=== PATIENT | male | born 1970 | race Two or more races ===

== ENCOUNTER 2019-02-22 09:53 | Emergency (ER) | payer SELFPAY ==
[~2019-02-22] VITALS: Ht 188 cm; Wt 82.1 kg
--- NOTE | 2019-02-22 09:53 | NUR ---
BIB RA 39 AND [employer] OFFICERS FROM CUSTODIAL, ETOH AND ELEVATED BLOOD SUGAR, TO ER BED 14, HOOKED TO MONITOR, CHANGED TO GOWN, PROVIDED W WARM BLANKET, AWAITING MD MORENO
--- NOTE | 2019-02-22 09:55 | NUR ---
DR KENDRICK AT BEDSIDE
--- NOTE | 2019-02-22 11:04 | NUR ---
CHELITA KAT AT BEDSIDE, SIGNED HOMELESS WAIVER FORM
--- NOTE | 2019-02-22 11:10 | NUR ---
PROVIDED PT W SANDWICH AND WATER.
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
--- NOTE | 2019-02-22 11:23 | NUR ---
Patient given written and verbal discharge instructions. Patient verbalizes understanding of instructions. Patient is ambulatory with steady gait. Refuses offer of senior living placement. Patient given list of available shelters in surrounding area. Pt on proper clothing upon discharge. Provided w tapcard.
[2019-02-22 11:24] VITALS: BP 149/81
== END 2019-02-22 11:26 | disposition home or self-care (01) ==
LOC: ER 09:58
DX: E11.9 Type 2 diabetes mellitus without complications (principal); F10.129 Alcohol abuse with intoxication, unspecified; F17.200 Nicotine dependence, unspecified, uncomplicated; Z60.2 Problems related to living alone; Y90.9 Presence of alcohol in blood, level not specified
CPT/HCPCS: 82962-TC

== ENCOUNTER 2020-01-28 02:12 | Emergency (ER) | payer SELFPAY ==
[~2020-01-28] VITALS: Ht 188 cm; Wt 80.7 kg
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
[2020-01-28] MEDS ORDERED: IBUPROFEN 400 MG TABLET ONE (02:34)
[2020-01-28] MEDS: IBUPROFEN 400 MG TABLET PO ONE (02:57)
[2020-01-28 04:24] VITALS: BP 127/72
--- NOTE | 2020-01-28 04:24 | NUR ---
Patient discharged to home in stable condition. Written and verbal after care instructions given. Patient verbalizes understanding of instruction. Pt ambulated with steady gait. Denies headache or pain. VSS. Ambulated with steady gait.
== END 2020-01-28 04:25 | disposition home or self-care (01) ==
LOC: ER 02:15
DX: F07.81 Postconcussional syndrome (principal); R51 Headache; Z60.2 Problems related to living alone
CPT/HCPCS: 82962-TC

== ENCOUNTER 2020-02-08 11:08 | Emergency (ER) | payer SELFPAY ==
[~2020-02-08] VITALS: Ht 177.8 cm; Wt 84.4 kg
--- NOTE | 2020-02-08 11:12 | NUR ---
PT RAJENDRA FROM [place] [facility] C/O GENERALIZED WEAKNESS, DIZZINESS X TODAY. 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 PT GOWNED PLACED ON MONITOR. STABLE VITALS. AWAITING MD MORENO.
--- NOTE | 2020-02-08 11:25 | NUR ---
IV LINE STARTED BLOOD DRAWN AND SENT TO LAB.
--- NOTE | 2020-02-08 11:49 | NUR ---
DR MINOR AT BEDSIDE FOR EVAL.
[2020-02-08] MEDS ORDERED: ASPIRIN 325 MG TABLET ONE (11:52)
[2020-02-08] MEDS ORDERED: ASPIRIN 325 MG TABLET PO ONE (12:00)
[2020-02-08] MEDS ORDERED: IV NS 0.9% 1,000 ML BAG IV ONE (12:00)
--- NOTE | 2020-02-08 12:02 | NUR ---
RADIOLOGY AT BEDSIDE FOR CHEST XRAY.
[2020-02-08 12:05] LABS: APPEARANCE,URINE Clear (CLEAR); BILIRUBIN,URINE Negative (NEGATIVE); BLOOD, URINE Small Ery/uL (NEGATIVE); COLOR,URINE Yellow (YELLOW); KETONES,URINE Negative (NEGATIVE); LEUKOCYTE ESTERASE ,URINE Small (NEGATIVE); NITRITE, URINE Negative (NEGATIVE); PH,URINE 6.5 (5.0-8.0); PROTEIN,URINE 30 mg/dl (NEGATIVE); UGLUCOSE 500 MG/DL mg/dL (NEGATIVE)
[2020-02-08 12:18] LABS: BACTERIA,URINE Few /HPF (None Seen); SQUAMOUS EPITHELIAL CELL,UR Rare /HPF (None Seen)
[2020-02-08 12:22] LABS: CALCIUM, SERUM 8.5 mg/dL (8.5-10.1); CARBON DIOXIDE 26 mmol/L (21-32); CHLORIDE 99 mmol/L (98-107); CREATININE 0.9 mg/dL (0.6-1.3); GLUCOSE 327 mg/dL (74-106); POTASSIUM 4.1 mmol/L (3.5-5.1); SODIUM SERUM 134 mmol/L (136-145); UREA NITROGEN, BLOOD 7 mg/dL (7-18)
[2020-02-08 12:28] LABS: ALANINE AMINOTRANSFERASE 41 U/L (12-78); ALBUMIN 3.3 g/dL (3.4-5.0); ALKALINE PHOSPHATASE 237 U/L (46-116); ASPARTATE AMINOTRANSFERASE 165 U/L (15-37); BILIRUBIN,DIRECT 0.4 mg/dL (0.0-0.2); BILIRUBIN,TOTAL 0.8 mg/dL (0.2-1.0); LIPASE 440 U/L (73-393); TOTAL PROTEIN, SERUM 8.2 g/dL (6.4-8.2)
[2020-02-08 12:33] LABS: BASOPHILS % (AUTO) 1.1 % (0.0-2.0); EOSINOPHILS % (AUTO) 0.7 % (0.0-6.0); HEMATOCRIT 31 % (39-51); HEMOGLOBIN 10.9 g/dL (13.5-17.5); LYMPHOCYTES # (AUTO) 0.8 /CMM (0.8-4.8); LYMPHOCYTES % (AUTO) 25.2 % (20.0-44.0); MEAN CORPUSCULAR HGB CONC 35 g/dl (31.0-36.0); MEAN CORPUSCULAR VOLUME 104 fL (80-96); MONOCYTES # (AUTO) 0.4 /CMM (0.1-1.30); MONOCYTES % (AUTO) 11.8 % (2.0-12.0); NEUTROPHILS # (AUTO) 1.9 /CMM (1.8-8.9); NEUTROPHILS % (AUTO) 61.2 % (43.0-81.0); PLATELET COUNT (AUTO) 53 /CMM (150-450); WHITE BLOOD COUNT (AUTO) 3.2 K/uL (4.3-11.0)
[2020-02-08 12:56] LABS: MAGNESIUM 1.9 mg/dL (1.8-2.4); PHOSPHORUS 4.1 mg/dL (2.5-4.9)
[2020-02-08 13:21] LABS: BAND % (MANUAL) 3 % (0.0-5.0); BASOPHILS % (MANUAL) 1 % (0.0-2.0); EOSINOPHILS % (MANUAL) 1 % (0-4); LYMPHOCYTES % (MANUAL) 25 % (16-48); MONOCYTES % (MANUAL) 11 % (0-11.0); NEUTROPHILS % (MANUAL) 59 (42-76)
[2020-02-08] MEDS ORDERED: IV NS 0.9% 1,000 ML IV ONE (13:30)
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
--- NOTE | 2020-02-08 15:51 | NUR ---
SEEN BY CHELITA PATEL. WAS PROVIDED W/ HOMELESS REFFERALS. PT IS AMBULATORY W/ STEADY GAIT. WAS PROVIDED W/ MEAL TRAIY AND BUS PASS FOR TRANSPORTATION. HOMELESS WAIVER SIGNED. D/C'D IN STABLE CONDITION.
[2020-02-08 16:01] VITALS: BP 136/84
--- NOTE | 2020-02-08 16:01 | NUR ---
Patient discharged to home in stable condition. Written and verbal after care instructions given. Patient verbalizes understanding of instruction.IV removed. Catheter intact and site benign. Pressure and 4x4 applied to site. No bleeding noted.
== END 2020-02-08 16:06 | disposition home or self-care (01) ==
LOC: ER 11:09
DX: F10.10 Alcohol abuse, uncomplicated (principal); R74.0 Nonspecific elevation of levels of transaminase and lactic acid dehydrogenase [LDH]; R11.10 Vomiting, unspecified; E11.9 Type 2 diabetes mellitus without complications; I10 Essential (primary) hypertension; F17.200 Nicotine dependence, unspecified, uncomplicated; Z60.2 Problems related to living alone; Z59.0 Homelessness; Y90.9 Presence of alcohol in blood, level not specified
CPT/HCPCS: 36415; 71045; 80048; 80076; 81001; 82962; 83605 ×2; 83690; 83735; 84100; 84484; 85025; 93005; 96360; 96361; 99285; J7030 ×2; 81000-TC

== ENCOUNTER 2020-12-03 20:15 | Inpatient (IN) | payer MEDICAID ==
[~2020-12-03] VITALS: Ht 165.1 cm; Wt 82.6 kg
--- NOTE | 2020-12-03 20:25 | NUR ---
to er bed 14 bibra 39 from [facility], [place] called 911 for etoh. field bs 148. pt aaox2, no acute distress noted, resp even and unlabored. pt denies pain or discomfort at this time. place pt on cardiac monitoring. continuous pox. pending er md irvin.
[2020-12-03 20:46] LABS: BASOPHILS % (AUTO) 0.5 % (0.0-2.0); EOSINOPHILS % (AUTO) 1.1 % (0.0-6.0); HEMATOCRIT 26 % (39-51); HEMOGLOBIN 8.9 g/dL (13.5-17.5); LYMPHOCYTES # (AUTO) 2.1 /CMM (0.8-4.8); LYMPHOCYTES % (AUTO) 34.6 % (20.0-44.0); MEAN CORPUSCULAR HGB CONC 35 g/dl (31.0-36.0); MEAN CORPUSCULAR VOLUME 94 fL (80-96); MONOCYTES # (AUTO) 0.6 /CMM (0.1-1.30); MONOCYTES % (AUTO) 10.6 % (2.0-12.0); NEUTROPHILS # (AUTO) 3.3 /CMM (1.8-8.9); NEUTROPHILS % (AUTO) 53.2 % (43.0-81.0); PLATELET COUNT (AUTO) 140 /CMM (150-450); RED BLOOD CELL COUNT(AUTO) 2.72 MIL/uL (4.5-6.0); WHITE BLOOD COUNT (AUTO) 6.1 K/uL (4.3-11.0)
[2020-12-03 21:05] LABS: ALBUMIN 2.4 g/dL (3.4-5.0); BILIRUBIN,DIRECT 0.3 mg/dL (0.0-0.2); BILIRUBIN,TOTAL 0.5 mg/dL (0.2-1.0); CREATININE 2.9 mg/dL (0.6-1.3); POTASSIUM 3.3 mmol/L (3.5-5.1); TOTAL PROTEIN, SERUM 8.4 g/dL (6.4-8.2)
[2020-12-03] MEDS ORDERED: IV NS 0.9% 1,000 ML IV ONE (21:30)
--- NOTE | 2020-12-03 21:38 | NUR ---
MARYID SWABBED, SENT TO LAB.
--- NOTE | 2020-12-03 21:43 | NUR ---
DR. LEWIS PAGED PER MD ORDER.
--- NOTE | 2020-12-03 22:00 | NUR ---
GERARDO DAVID TALKING TO DR. LEWIS REGARDING PT ADMISSION.
--- NOTE | 2020-12-03 22:09 | NUR ---
TELE 326-2
--- NOTE | 2020-12-03 22:27 | NUR ---
report frank to telehealth case managerjovanna abreu. will trnasport pt via acls protocol.
[2020-12-03 22:30] VITALS: BP 136/81
--- NOTE | 2020-12-03 22:30 | NUR ---
SPECIALIZED DEVELOPERCARDIAC REHABILITATION SPECIALIST NOTE PATIENT A/OX2; NOTED WITH SLURRED SPEECH, AND LACK OF CONCENTRATION; ABLE TO MAKE NEEDS KNOWN. ON ROOM AIR; TOLERATING WELL WITH NO SOB. IV TO LAC #18G; NS @ 100ML/HR; PATENT AND INTACT. SCAB NOTED TO BILATERAL KNEES. +2 NON-PITTING EDEMA NOTED TO LEFT ANKLE. MAINTAINED AND EDUCATED PATIENT ON NPO DIET. PATIENT DENIES PAIN OR DISCOMFORT AT THIS TIME. ORIENTED PATIENT TO UNIT, STAFF, AND ROOM. ALL BELONGINGS ACCOUNTED FOR ON PATIENT BELONGINGS CHECKLIST. SAFETY MEASURES IN PLACE: BED IN LOWEST LOCKED POSITION, BED ALARMS ON, SIDE RAILS UPX2, CALL LIGHT WITHIN EASY REACH. PATIENT IN STABLE CONDITION; WILL CONTINUE PLAN OF CARE.
[2020-12-03 22:35] LABS: BILIRUBIN,URINE NEGATIVE (NEGATIVE); COLOR,URINE YELLOW (YELLOW); LEUKOCYTE ESTERASE ,URINE NEGATIVE (NEGATIVE); NITRITE, URINE NEGATIVE (NEGATIVE); PROTEIN,URINE TRACE mg/dl (NEGATIVE); UGLUCOSE NEGATIVE (NEGATIVE); UROBILINOGEN,URINE 0.2 EU/dL (0.2)
--- NOTE | 2020-12-03 22:46 | NUR ---
PT TRANSFERED PER ACLS PROTOCOL
[2020-12-03 22:50] VITALS: BP 136/81
[2020-12-03 22:58] LABS: BACTERIA,URINE None seen /HPF (None Seen); SQUAMOUS EPITHELIAL CELL,UR Few /HPF (None Seen); URINE AMORPHOUS URATE Few /HPF (None Seen); WBC,URINE 0-2 /HPF (0-3)
[2020-12-03] MEDS ORDERED: Z GUARD REMEDY 2 OZ OINT TP PRN (23:30)
[2020-12-03] MEDS ORDERED: ZOLPIDEM TARTRATE 5 MG TABLET PO PRN (23:30)
[2020-12-03] MEDS ORDERED: ONDANSETRON HCL/PF 4 MG/2 ML VIAL IVP PRN (23:30)
[2020-12-03] MEDS ORDERED: PHARMACY ADD 1 AMP MVI TO IVF DAILY ONE BAG XX PRN (23:30)
[2020-12-03] MEDS ORDERED: ACETAMINOPHEN 325 MG TABLET PO PRN (23:30)
[2020-12-03] MEDS ORDERED: MAG HYDROX/AL HYDROX/SIMETH 30 ML UDC PO PRN (23:30)
[2020-12-03] MEDS ORDERED: MAGNESIUM HYDROXIDE 30 ML UDC PO PRN (23:30)
[2020-12-03] MEDS ORDERED: Folic acid 1 MG in IV D5W 50 ML IV SCH (23:30)
[2020-12-03] MEDS: IV NS 0.9% 1,000 ML IV SCH (23:57)
--- NOTE | 2020-12-04 00:30 | NUR ---
CHARGING CRANE OPERATOR NOTES - FOLIC ACID PATIENT'S FOLIC ACID 1MG WAS NOT ADMINISTERED AT 2330. PER RN NEUROLOGY PHYSICIAN MEDICATION WAS NOT AVAILABLE. WILL ENDORSE TO NEXT SHIFT RN AND PHARMACY FOR MEDICATION TO BE ADMINISTER IN AM. CHARGE NURSE AWARE.
[2020-12-04] MEDS ORDERED: Thiamine 100 MG/ML VIAL ONE (00:40)
[2020-12-04] MEDS: POTASSIUM CL. PREMIX PERIPHER. 50 ML IV SCH ×3 (00:44→02:58)
[2020-12-04] MEDS: Thiamine 100 MG in IV D5W 50 ML IV SCH ×2 (01:10→23:30)
[2020-12-04 04:29] VITALS: BP 134/81
--- NOTE | 2020-12-04 06:07 | NUR ---
CRIMINAL JUSTICE PROGRAM DIRECTOR CLOSING NOTE PATIENT A/OX2; NOTED LACK OF CONCENTRATION; ABLE TO MAKE NEEDS KNOWN. ON ROOM AIR; TOLERATING WELL WITH NO SOB. EXTERNAL ONLINE JOURNALIST READS SINUS TACHY AT 104. IV TO LAC #18G; PATENT AND INTACT. RIGHT HAND #20G; NS @ 100ML/HR; PATENT AND INTACT. SCAB NOTED TO BILATERAL KNEES. +2 NON-PITTING EDEMA NOTED TO LEFT ANKLE. MAINTAINED AND EDUCATED PATIENT ON NPO DIET. PATIENT DENIES PAIN OR DISCOMFORT AT THIS TIME. SAFETY MEASURES IN PLACE: BED IN LOWEST LOCKED POSITION, BED ALARMS ON, SIDE RAILS UPX2, CALL LIGHT WITHIN EASY REACH. PATIENT IN STABLE CONDITION; WILL ENDORSE PLAN OF CARE TO ONCOMING MORNING RN.
[2020-12-04 06:37] LABS: BASOPHILS % (AUTO) 0.8 % (0.0-2.0); EOSINOPHILS % (AUTO) 3.1 % (0.0-6.0); HEMATOCRIT 24 % (39-51); HEMOGLOBIN 8.1 g/dL (13.5-17.5); LYMPHOCYTES # (AUTO) 1.1 /CMM (0.8-4.8); LYMPHOCYTES % (AUTO) 28.3 % (20.0-44.0); MEAN CORPUSCULAR HGB CONC 34 g/dl (31.0-36.0); MEAN CORPUSCULAR VOLUME 95 fL (80-96); MONOCYTES # (AUTO) 0.7 /CMM (0.1-1.30); MONOCYTES % (AUTO) 16.6 % (2.0-12.0); NEUTROPHILS # (AUTO) 2.1 /CMM (1.8-8.9); NEUTROPHILS % (AUTO) 51.2 % (43.0-81.0); PLATELET COUNT (AUTO) 129 /CMM (150-450); RED BLOOD CELL COUNT(AUTO) 2.48 MIL/uL (4.5-6.0)
[2020-12-04 07:07] LABS: CALCIUM, SERUM 7.4 mg/dL (8.5-10.1); CREATININE 2.7 mg/dL (0.6-1.3); MAGNESIUM 1.7 mg/dL (1.8-2.4); PHOSPHORUS 3.6 mg/dL (2.5-4.9); POTASSIUM 4.1 mmol/L (3.5-5.1)
[2020-12-04 08:00] VITALS: BP 141/72
[2020-12-04] MEDS ORDERED: INSU100V7 SQ (08:00)
[2020-12-04] MEDS ORDERED: METF-440 PO (08:00)
--- NOTE | 2020-12-04 08:00 | NUR ---
RN OPENING NOTE PATIENT IS AWAKE IN BED. PATIENT IS A/O X3 AND UNDERSTANDS SOME ETHIOPIAN. NO COMPLAINT OF PAIN OF NAUSEA. CURRENTLY ON RA WITH NO SOB OR RESPIRATORY DISTRESS PRESENT. CURRENTLY ON NOXIOUS WEEDS AND PEST INSPECTOR. ON BEDREST WITH URINAL AT THE BEDSIDE. EDEMA PRESENT ON L ANKLE. SKIN IS INTACT. HL PRESENT ON L AC 18G AND R HAND 20G. SAFETY MEASURES IN PLACE. SIDE RAILS RAISED. BED LOWERED. CALL LIGHT WITHIN REACH. WILL CONTINUE TO MONITOR.
[2020-12-04] MEDS ORDERED: MVI ADULT 10ML VIAL = 1AMP 10 ML in IV NS 0.9% 1,000 ML IV ONE (09:00)
[2020-12-04] MEDS ORDERED: Folic acid 1 MG in IV D5W 50 ML IV SCH (09:00)
[2020-12-04 09:20] LABS: EOSINOPHILS % (MANUAL) 3 % (0-4); LYMPHOCYTES % (MANUAL) 29 % (16-48); MONOCYTES % (MANUAL) 15 % (0-11.0); NEUTROPHILS % (MANUAL) 53 (42-76)
[2020-12-04] MEDS ORDERED: LISI20TA30 PO (09:23)
[2020-12-04] MEDS ORDERED: ERGO500014 PO (09:23)
[2020-12-04] MEDS: IV NS 0.9% 1,000 ML IV SCH (09:56)
[2020-12-04 12:00] VITALS: BP 148/84
[2020-12-04 16:06] VITALS: BP 149/84
--- NOTE | 2020-12-04 16:06 | NUR ---
Social Service Consult: client services analyst consult requested for homelessness. Patient is a 50-year-old, male. SW met with the patient at bedside in the medsur unit. Patient is alert and oriented x4. Per patients chart, patient was brought into the hospital on 12/03/20 for an acute kidney injury. Patient stated he is currently homeless and has been homeless for the last four years. Patient currently has no source of income. Patient has been staying with his ex-girlfriends for a month. Patient was unable to provide SW with an address but stated her name is Vidya and provided SW with her contact information [phone]. Patient stated that he was sober for 50 days but has recently started drinking alcohol. Per patients toxicology report, patient is positive for ETOH and Benzodiazepine. Patient denies any history of mental illness however patient stated that he has had visual and auditory hallucinations. Patient stated he would see and hear parrots. Patient denies any thoughts of suicide or homicide. 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 Patient is aware that he will be placed in appropriate placement for his care after the amputation. Patient agrees with this discharge plan. SW offered homeless resources to the patient and asked if he is familiar with the resources. Patient stated that he is familiar with the resources and accepted the resources. Patient signed the homeless waiver and SW filed the waiver in the patients chart. 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 HELENA Schneider stated case management will follow up with appropriate placement for discharge planning. No further SS intervention at this time, however SW will remain available as needed.
[2020-12-04] MEDS: HYDROCODONE/APAP 5/325MG TABLET PO PRN (16:07)
--- NOTE | 2020-12-04 19:01 | NUR ---
RN CLOSING NOTE PATIENT IS AWAKE IN BED. PATIENT IS A/O X3 AND UNDERSTANDS SOME CITIZEN OF [place]. NO COMPLAINT OF PAIN OF NAUSEA. CURRENTLY ON RA WITH NO SOB OR RESPIRATORY DISTRESS PRESENT. CURRENTLY ON LAMINATOR HAND. ON BEDREST WITH URINAL AT THE BEDSIDE. EDEMA PRESENT ON L ANKLE. SKIN IS INTACT. HL PRESENT ON L AC 18G AND R HAND 20G. ROUTINE MEDS GIVEN. SAFETY MEASURES IN PLACE. SIDE RAILS RAISED. BED LOWERED. CALL LIGHT WITHIN REACH. REPORT GIVEN TO NIGHT NURSE FOR KAT.
[2020-12-04 20:00] VITALS: BP 134/75
--- NOTE | 2020-12-04 20:20 | NUR ---
LIEUTENANT BALLISTICS: OPENING NOTES PATIENT IS SEEN AWAKE IN BED. PATIENT IS A/O X3. PT IS CURRENTLY ON RA AND BREATHING IS EVEN AND UNLABORED. PT IS ON A TOOTH CUTTER. PT HAS EDEMA PRESENT ON L ANKLE AND FOOT. PT HAS IV ACCESSES ON HIS LAC #18G AND R HAND #20G. SAFETY MEASURES IN PLACE. SIDE RAILS RAISED. CALL LIGHT WITHIN REACH. PER PT, HE DOES NOT WANT HIS BED ALARM ON AND STATED THAT HE CAN AMBULATE INDEPENDENTLY WITH CRUTCHES. WILL CONTINUE TO MONITOR THE PT.
--- NOTE | 2020-12-04 21:33 | NUR ---
MS/TELE/RN IV MACHINE KEEPS BEEPING AT IV ACCESS AT LEFT AC PATIENT ALWAYS BENDS HIS ARM, AD IV AT RT. HAND NOT FLUSHING. REMOVED IV AT RT. HAND AND INSERTED A NEW IV AT RT. F/A G20. WILL CONTINUE TO MONITOR.
[2020-12-04] MEDS: IV NS 0.9% 1,000 ML IV PRN (23:37)
[2020-12-05] VITALS: BP 123/70
[2020-12-05 04:00] VITALS: BP 143/86
--- NOTE | 2020-12-05 06:32 | NUR ---
CHILD CARE COUNSELOR: CLOSING NOTES PATIENT IS SEEN AWAKE IN BED. PATIENT IS A/O X3. PT IS CURRENTLY ON RA AND BREATHING IS EVEN AND UNLABORED. PT IS ON A MACHINIST OUTSIDE. PT HAS AN IV ACCESSES ON HIS LAC #18G AND RIGHT FOREARM #20G . SAFETY MEASURES IN PLACE. 2 SIDE RAILS RAISED UP. CALL LIGHT IS WITHIN REACH. WILL ENDORSE CONTINUITY OF CARE TO DAY SHIFT NURSE.
[2020-12-05 07:06] LABS: BASOPHILS % (AUTO) 0.5 % (0.0-2.0); EOSINOPHILS % (AUTO) 2.3 % (0.0-6.0); HEMATOCRIT 23 % (39-51); LYMPHOCYTES # (AUTO) 1.2 /CMM (0.8-4.8); LYMPHOCYTES % (AUTO) 27.6 % (20.0-44.0); MEAN CORPUSCULAR HGB CONC 35 g/dl (31.0-36.0); MEAN CORPUSCULAR VOLUME 94 fL (80-96); MONOCYTES # (AUTO) 0.9 /CMM (0.1-1.30); MONOCYTES % (AUTO) 21.1 % (2.0-12.0); NEUTROPHILS # (AUTO) 2.1 /CMM (1.8-8.9); NEUTROPHILS % (AUTO) 48.5 % (43.0-81.0); PLATELET COUNT (AUTO) 109 /CMM (150-450); RED BLOOD CELL COUNT(AUTO) 2.44 MIL/uL (4.5-6.0); WHITE BLOOD COUNT (AUTO) 4.3 K/uL (4.3-11.0)
--- NOTE | 2020-12-05 07:45 | NUR ---
RN OPENING NOTES PATIENT IS ALERT AND ORIENTED. PATIENT IS ON ROOM AIR WITH 02 SATURATION OF 98%. BREATHING EVEN AND UNLABORED. IV ACCESS TO RIGHT FOREARM 20 GAUZE WITH FLUIDS RUNNING. BED IS IN LOWEST AND LOCKED POSITION. CALL LIGHT WITHIN REACH.
[2020-12-05 08:00] VITALS: BP 149/84
[2020-12-05 08:15] LABS: ALBUMIN 2.1 g/dL (3.4-5.0); BILIRUBIN,TOTAL 0.6 mg/dL (0.2-1.0); CREATININE 2.6 mg/dL (0.6-1.3); MAGNESIUM 1.4 mg/dL (1.8-2.4); PHOSPHORUS 3.6 mg/dL (2.5-4.9); TOTAL PROTEIN, SERUM 7.7 g/dL (6.4-8.2)
[2020-12-05] MEDS: THIAMINE HCL 100 MG TABLET PO SCH (08:26)
[2020-12-05] MEDS: FOLIC ACID 1 MG TABLET PO SCH (08:26)
[2020-12-05] MEDS: MULTIVITAMINS,THERAGRAN 1 UDTAB TABLET PO SCH (08:30)
[2020-12-05 08:52] LABS: LYMPHOCYTES % (MANUAL) 25 % (16-48); MONOCYTES % (MANUAL) 12 % (0-11.0); NEUTROPHILS % (MANUAL) 63 (42-76)
[2020-12-05] MEDS: Magnesium 1GM/D5W 100ML PREMIX 100 ML IV SCH ×2 (09:30→11:01)
[2020-12-05] MEDS: HYDROCODONE/APAP 5/325MG TABLET PO PRN ×2 (11:11→23:15)
[2020-12-05] MEDS ORDERED: DEXTROSE 50%-WATER 50 ML DISP.SYRIN IV PRN (14:00)
[2020-12-05 15:54] VITALS: BP 123/74
[2020-12-05] MEDS ORDERED: BLOOD SUGAR DIAGNOSTIC 1 EACH STRIP IN SCH (17:30)
[2020-12-05] MEDS: BLOOD SUGAR DIAGNOSTIC 1 EACH STRIP IN SCH ×2 (17:39→21:16)
[2020-12-05 19:00] VITALS: BP 149/88
--- NOTE | 2020-12-05 19:10 | NUR ---
RN NOTE RECEIVED PT ALERT AND ORIENTED X 3 IN BED WITH HEAD OF BED ELEVATED. ON ROOM AIR. RESPIRATIONS UNLABORED. NO COMPLAINTS OF PAIN AT THIS TIME. WITH NS @ 100ML/HOUR RUNNING ORDERED WITHOUT SIGNS OF COMPLICATIONS AT SITE. PLAN OF CARE DISCUSSED, CALL LIGHT WITHIN REACH, SAFETY MEASURES IN PLACE PER PROTOCOL, WILL MONITOR
--- NOTE | 2020-12-05 19:29 | NUR ---
RN CLOSING NOTES PATIENT IS ALERT AND ORIENTED. PATIENT IS ON ROOM AIR BREATHING EVEN AND UNLABORED. IV ACCESS TO RIGHT FOREARM 20 GAUZE WITH FLUIDS RUNNING. BED IS IN LOWEST AND LOCKED POSITION. CALL LIGHT WITHIN REACH. ENDORSED TO NEXT SHIFT REGARDING PATIENT'S NPO STATUS AFTER MIDNIGHT AND PROCEDURE CONSENTS BEING SIGNED FOR I AND D IN AM.
[2020-12-05 20:00] VITALS: BP 149/88
[2020-12-05] MEDS: IV NS 0.9% 1,000 ML IV PRN (20:29)
--- NOTE | 2020-12-05 21:00 | NUR ---
RN NOTE PER DINING HOST GIL, PT TO HAVE SURGERY TOMORROW AT 1200. CONSENTS SIGNED AND LOCATED IN CHART. PT MADE AWARE.
--- NOTE | 2020-12-06 00:50 | NUR ---
MS RN NOTES RECEIVED PT AWAKE & RESPONSIVE. NOT IN ANY DISTRESS. NO SOB NOTED. DENIES ANY PAIN OR DISCOMFORT AT THIS TIME. WITH IVF INFUSING WELL. CALL LIGHT WITHIN REACH. BED IN LOWEST POSITION. SR UP X 3 WITH BED ALARM ON FOR SAFETY. WILL CONTINUE TO MONITOR. Addendum: 12/07/20 at 0543 by BUNNY ABDUL RN DISREGARD NOTES, INCORRECT TIME & DATE.
[2020-12-06] MEDS: IV NS 0.9% 1,000 ML IV PRN (03:58)
[2020-12-06 05:07] LABS: PTH, INTACT 40 pg/mL (15-65)
[2020-12-06] MEDS: BLOOD SUGAR DIAGNOSTIC 1 EACH STRIP IN SCH ×4 (06:54→22:24)
--- NOTE | 2020-12-06 07:00 | NUR ---
RN NOTE NO ACUTE CHANGES OBSERVED. PT ALERT AND ORIENTED X 3 IN BED WITH HEAD OF BED ELEVATED. ON ROOM AIR. RESPIRATIONS UNLABORED. NO COMPLAINTS OF PAIN AT THIS TIME. WITH NS @ 100ML/HOUR RUNNING ORDERED WITHOUT SIGNS OF COMPLICATIONS AT SITE. PT IS PENDING SURGERY TODAY. CONSENTS SIGNED IN CHART, NPO STATUS MAINTAINED. WILL ENDORSE TO MORNING RN.
[2020-12-06 07:01] LABS: BASOPHILS % (AUTO) 1.1 % (0.0-2.0); EOSINOPHILS % (AUTO) 2.4 % (0.0-6.0); HEMATOCRIT 23 % (39-51); LYMPHOCYTES # (AUTO) 1.3 /CMM (0.8-4.8); LYMPHOCYTES % (AUTO) 36.3 % (20.0-44.0); MEAN CORPUSCULAR HGB CONC 34 g/dl (31.0-36.0); MEAN CORPUSCULAR VOLUME 95 fL (80-96); MONOCYTES # (AUTO) 0.7 /CMM (0.1-1.30); MONOCYTES % (AUTO) 19.8 % (2.0-12.0); NEUTROPHILS # (AUTO) 1.4 /CMM (1.8-8.9); NEUTROPHILS % (AUTO) 40.4 % (43.0-81.0); PLATELET COUNT (AUTO) 121 /CMM (150-450); RED BLOOD CELL COUNT(AUTO) 2.44 MIL/uL (4.5-6.0); WHITE BLOOD COUNT (AUTO) 3.5 K/uL (4.3-11.0)
--- NOTE | 2020-12-06 07:30 | NUR ---
MS RN OPENING NOTES RECEIVED PATIENT LYING IN BED, RESTING. PATIENT ON ROOM AIR - TOLERATING WELL, WITH O2 SATURATION OF 98%. BREATHING EVEN AND UNLABORED. NO PAIN OR RESPIRATORY DISTRESS NOTED. IV ACCESS TO RIGHT FOREARM, #20 - RUNNING NS @ 100ML/HR. BED IS IN LOWEST AND LOCKED POSITION. CALL LIGHT WITHIN REACH. WILL CONTINUE TO MONITOR.
[2020-12-06 08:00] VITALS: BP 143/84
[2020-12-06] MEDS: FOLIC ACID 1 MG TABLET PO SCH (08:35)
[2020-12-06] MEDS: THIAMINE HCL 100 MG TABLET PO SCH (08:35)
[2020-12-06] MEDS: MULTIVITAMINS,THERAGRAN 1 UDTAB TABLET PO SCH (08:35)
[2020-12-06 10:10] LABS: CALCIUM, SERUM 8.3 mg/dL (8.5-10.1); CREATININE 2.4 mg/dL (0.6-1.3)
[2020-12-06] MEDS ORDERED: LIDOCAINE HCL/PF 1% 30 ML SDV ONE (10:41)
[2020-12-06] MEDS ORDERED: BUPIVACAINE 0.5 % PF 150 MG/30 ML VIAL ONE (10:41)
[2020-12-06 11:07] LABS: *SPE A/G RATIO 0.6 (0.7-1.7); *SPE ALBUMIN 2.4 g/dL (2.9-4.4); *SPE ALPHA-1-GLOBULIN 0.3 g/dL (0.0-0.4); *SPE ALPHA-2-GLOBULIN 0.5 g/dL (0.4-1.0); *SPE BETA GLOBULIN 0.8 g/dL (0.7-1.3); *SPE GLOBULIN, TOTAL 4.3 g/dL (2.2-3.9); *SPE M-SPIKE Not Observed g/dL (Not Observed); *SPEGAMMA GLOBULIN 2.7 g/dL (0.4-1.8)
--- NOTE | 2020-12-06 11:15 | NUR ---
MS RN NOTE PATIENT LEFT TO OR FOR SURGERY.
[2020-12-06] MEDS ORDERED: VANCOMYCIN 1 GM VIAL ONE (11:24)
[2020-12-06] MEDS ORDERED: BACITRACIN 50000 UNITS/VIAL ONE (11:24)
[2020-12-06] MEDS ORDERED: FENTANYL PF 100MCG/2ML AMPUL ONE (12:02)
[2020-12-06] MEDS ORDERED: MIDAZOLAM HCL 2 MG/2ML VIAL ONE (12:03)
[2020-12-06 12:07] LABS: LYMPHOCYTES % (MANUAL) 40 % (16-48); MONOCYTES % (MANUAL) 18 % (0-11.0); NEUTROPHILS % (MANUAL) 42 (42-76)
[2020-12-06] MEDS ORDERED: HYDROMORPHONE 1 MG/1 ML DISP.SYRIN ONE (13:50)
--- NOTE | 2020-12-06 14:40 | NUR ---
MS RN NOTE PATIENT RETURNED FROM SURGERY. VITALS STABLE: BP 135/80 HR 80 O2 98% TEMP 98.2
[2020-12-06] MEDS: HYDROCODONE/APAP 5/325MG TABLET PO PRN (14:48)
[2020-12-06 16:00] VITALS: BP 144/86
--- NOTE | 2020-12-06 16:51 | NUR ---
MS RN NOTE PATIENT BLOOD SUGAR @ 138. PATIENT REFUSED INSULIN.
--- NOTE | 2020-12-06 18:29 | NUR ---
MS RN CLOSING NOTES PATIENT CURRENTLY LYING IN BED, RESTING. STATUS POST DEBRIDEMENT OF LEFT FOOT AND ANKLE. PATIENT'S LEFT LEG IS IN A CAST. MEDICALLY STABLE. PATIENT ON ROOM AIR - TOLERATING WELL. BREATHING EVEN AND UNLABORED. NO PAIN OR RESPIRATORY DISTRESS NOTED. IV ACCESS TO RIGHT FOREARM, #20 - RUNNING NS @ 100ML/HR. PENDING CASE MANAGEMENT FOR SNF PLACEMENT. BED IS IN LOWEST AND LOCKED POSITION. CALL LIGHT WITHIN REACH. WILL CONTINUE TO MONITOR.
[2020-12-06 20:00] VITALS: BP 142/84
--- NOTE | 2020-12-06 20:13 | NUR ---
RN NOTES RECEIVED NEW ORDERS VIA TELEPHONE READ BACK FROM ORDER FROM DR WERNER. NOTED AND CARRIED OUT.
[2020-12-06] MEDS: CEFAZOLIN 1 GM in IV D5W 50 ML IV SCH (20:53)
--- NOTE | 2020-12-06 23:47 | NUR ---
RN NOTES TRANSFER OF KAT TO BUNNY PARKINSON
--- NOTE | 2020-12-06 23:50 | NUR ---
MS RN NOTES RECEIVED PT AWAKE & RESPONSIVE. NOT IN ANY DISTRESS. NO SOB NOTED. DENIES ANY PAIN OR DISCOMFORT AT THIS TIME. WITH IVF INFUSING WELL. CALL LIGHT WITHIN REACH. BED IN LOWEST POSITION. SR UP X 3 WITH BED ALARM ON FOR SAFETY. WILL CONTINUE TO MONITOR.
[2020-12-07] MEDS: HYDROCODONE/APAP 5/325MG TABLET PO PRN ×3 (00:56→14:21)
[2020-12-07] MEDS: CEFAZOLIN 1 GM in IV D5W 50 ML IV SCH ×3 (05:09→20:25)
--- NOTE | 2020-12-07 06:00 | NUR ---
MS RN NOTES BS 140. PT REFUSED TO HAVE INSULIN COVERAGE AT THIS TIME. EXPLAINED TO PT IMPORTANCE OF INSULIN IN HIS POC BUT PT STILL REFUSED. WILL CONTINUE TO MONITOR.
--- NOTE | 2020-12-07 06:55 | NUR ---
MS RN NOTES AWAKE & RESPONSIVE. NOT IN ANY DISTRESS. NO SOB NOTED. DENIES ANY PAIN OR DISCOMFORT AT THIS TIME. WITH IVF INFUSING WELL. MONITORED ACCORDINGLY. CALL LIGHT WITHIN REACH. BED IN LOWEST POSITION. SR UP X 2 FOR SAFETY. WILL ENDORSE TO NEXT SHIFT.
[2020-12-07] MEDS: BLOOD SUGAR DIAGNOSTIC 1 EACH STRIP IN SCH ×4 (06:59→21:42)
--- NOTE | 2020-12-07 07:30 | NUR ---
MS RN RECEIVED ON BED, AWAKE,ALERT,ORIENTED X3,NOT IN ANY FORM OF DISTRESS, RESPIRATIONS EVEN AND UNLABORED,NO SOB NOTED.,LUNGS ARE CLEAR,ABDOMEN SOFT,POSITIVE BOWEL SOUNDS,DENIES PAIN AT THIS TIME,NOTED TO HAVE LEFT LEG OSTEOMYELITIS, W/ DRESSING DRY AND INTACT, DENIES PAIN AT THIS TIME,ALL NEEDS ATTENDED.
[2020-12-07 08:00] VITALS: BP 141/83
[2020-12-07] MEDS: FOLIC ACID 1 MG TABLET PO SCH (08:37)
[2020-12-07] MEDS: THIAMINE HCL 100 MG TABLET PO SCH (08:37)
[2020-12-07] MEDS: MULTIVITAMINS,THERAGRAN 1 UDTAB TABLET PO SCH (08:37)
--- NOTE | 2020-12-07 09:00 | NUR ---
MS PARKINSON BREAKFAST SERVED,DUE MEDS GIVEN,TOLERATED WELL.
--- NOTE | 2020-12-07 10:05 | NUR ---
MS RN INSIDE HIS ROOM,DOING PT EVAL.
[2020-12-07 10:44] LABS: CALCIUM, SERUM 7.7 mg/dL (8.5-10.1); CREATININE 2.8 mg/dL (0.6-1.3)
[2020-12-07 10:53] LABS: BASOPHILS % (AUTO) 0.4 % (0.0-2.0); EOSINOPHILS % (AUTO) 0.9 % (0.0-6.0); HEMATOCRIT 23 % (39-51); HEMOGLOBIN 7.8 g/dL (13.5-17.5); LYMPHOCYTES # (AUTO) 1.2 /CMM (0.8-4.8); LYMPHOCYTES % (AUTO) 18.2 % (20.0-44.0); MEAN CORPUSCULAR HGB CONC 34 g/dl (31.0-36.0); MEAN CORPUSCULAR VOLUME 96 fL (80-96); MONOCYTES # (AUTO) 1.2 /CMM (0.1-1.30); MONOCYTES % (AUTO) 18.4 % (2.0-12.0); NEUTROPHILS # (AUTO) 3.9 /CMM (1.8-8.9); NEUTROPHILS % (AUTO) 62.1 % (43.0-81.0); PLATELET COUNT (AUTO) 115 /CMM (150-450); RED BLOOD CELL COUNT(AUTO) 2.38 MIL/uL (4.5-6.0); WHITE BLOOD COUNT (AUTO) 6.3 K/uL (4.3-11.0)
[2020-12-07 13:21] LABS: EOSINOPHILS % (MANUAL) 2 % (0-4); LYMPHOCYTES % (MANUAL) 16 % (16-48); MONOCYTES % (MANUAL) 15 % (0-11.0); NEUTROPHILS % (MANUAL) 67 (42-76)
--- NOTE | 2020-12-07 18:26 | NUR ---
ms rn patient accidentally removed his iv, refusing to restart at this time.
--- NOTE | 2020-12-07 18:27 | NUR ---
ms rn on bed, all needs attended.
--- NOTE | 2020-12-07 19:29 | NUR ---
MS RN OPENING NOTES PATIENT IN BED. A/OX3. NO S/S OF DISTRESS NOTED. RESPIRATIONS EVEN AND UNLABORED. TOLERATING ROOM AIR. NOTED TO HAVE LEFT LEG CAST. NO IV IN PLACE AT THE MOMENT. SAFETY PRECAUTION IN PLACE: BED IN LOWEST POSITION, BRAKES LOCKED, CALL LIGHT WITHIN REACH. PATIENT C/O OF PAIN, WILL DO NON-PHARMACOLOGICAL INTERVENTION FIRST THEN PROCEED WITH PHARMACOLOGICAL INTERVENTION IF IT DOES NOT WORK. WILL CONTINUE TO MONITOR.
[2020-12-07 20:00] VITALS: BP 156/84
--- NOTE | 2020-12-07 20:00 | NUR ---
MS RN NOTES NEW SALINE LOCK PLACED ON LEFT FORE ARM #22,SECURED,FLUSHED WITH NS.SAME IVF RE STARTED
[2020-12-07 20:20] VITALS: BP 156/84
--- NOTE | 2020-12-08 00:31 | NUR ---
MS RN NOTES REFUSED IVF THIS TIME,CLAIMED HE CANT SLEEP.
[2020-12-08] MEDS: HYDROCODONE/APAP 5/325MG TABLET PO PRN (02:23)
--- NOTE | 2020-12-08 02:23 | NUR ---
MS RN NOTES PAIN MANAGEMENT C/O PAIN ON LEFT FOOT 6/10 ON PAIN SCALE, NORCO 5/325MG,1 TAB PO GIVEN ORDERED AND PER PATIENT REQUEST.
[2020-12-08] MEDS: CEFAZOLIN 1 GM in IV D5W 50 ML IV SCH ×2 (04:32→12:21)
[2020-12-08] MEDS: BLOOD SUGAR DIAGNOSTIC 1 EACH STRIP IN SCH ×3 (06:50→17:19)
[2020-12-08] MEDS: INSULIN REGULAR, HUMAN 100 UNIT/ML 3 ML VIAL SQ PRN ×2 (06:56→12:23)
--- NOTE | 2020-12-08 07:11 | NUR ---
MS RN CLOSING NOTES PATIENT IN BED. A/OX4. NO SIGNS OF DISTRESS NOTED. RESPIRATORY EVEN AND UNLABORED. NO C/O PAIN AT THE MOMENT. PATIENT ABLE TO MAKE NEEDS KNOWN. ALL NEEDS ATTENDED. ALL SCHEDULED MEDS ADMINISTERED. SAFETY PRECAUTIONS KEPT IN PLACE THE WHOLE SHIFT: BED IN LOWEST, LOCKED POSITION, CALL LIGHT WITHIN REACH. WILL ENDORSE CARE TO MORNING SHIFT RN.
--- NOTE | 2020-12-08 07:15 | NUR ---
MS RN NOTES PATIENT IN BED ALERT ORIENTED X 4. NO ACUTE DISTRESS NOTED. BREATHING UNLABORED, IV ACCESS PATENT AND INTACT, NO REDNESS NO SWELLING NOTED. SAFETY MEASURES IN PLACE. CALL LIGHT WITHIN REACH. WILL CONTINUE TO MONITOR ACCORDINGLY.
[2020-12-08 08:00] VITALS: BP 143/82
[2020-12-08] MEDS: MULTIVITAMINS,THERAGRAN 1 UDTAB TABLET PO SCH (09:01)
[2020-12-08] MEDS: THIAMINE HCL 100 MG TABLET PO SCH (09:01)
[2020-12-08] MEDS: FOLIC ACID 1 MG TABLET PO SCH (09:01)
--- NOTE | 2020-12-08 12:23 | NUR ---
MS RN NOTES PATIENT REFUSED INSULIN DESPITE OF EXPLANATION OF RISKS AND BENEFITS
--- NOTE | 2020-12-08 14:55 | NUR ---
MS PARKINSON NOTES PICC LINE INSERTED ON RIGHT UPPER ARM DOUBLE LUMEN BY PICC LINE NURSE SHAWN SECURED WITH TRANSPARENT DRESSING , NO BLEEDING NOTED. PATIENT TOLERATED WELL. Addendum: 12/08/20 at 1520 by LOR WILLS RN ADDENDUM: PER PICC LINE NURSE SHAWN BRUNSON FOR USE.
--- NOTE | 2020-12-08 18:00 | NUR ---
MS SCHOOL BUS MECHANIC NOTES PATIENT DISCHARGE TO [facility] WITH STABLE VITAL SIGNS. NO ACUTE DISTRESS NOTED . BREATHING UNLABORED. NO SOB NOTED. DISCHARGE INSTRUCTIONS GIVEN TO THE PATIENT AND SNF RN RODRI INCLUDING TO CONTINUE IV ANTIBIOTICS AND NO WALKING ON LEFT FOOT, LEAVE CAST IN PLACE AND CALL DR SHARMA AT [phone] FOR ANY PROBLEMS , VERBALIZED UNDERSTANDING. RIGHT UPPER ARM PICC LINE WITH DOUBLE LUMEN PATENT AND INTACT WITH TRANSPARENT DRESSING, NO BLEEDING NO SWELLING NOTED. LEFT LOWER LEG CAST INTACT, CHECKED WITH GOOD CIRCULATION. PATIENT DENIED ANY PAIN. ALL BELONGINGS ACCOUNTED FOR. PICKED UP VIA AMBULANCE IN A GURNEY ACCOMPANIED BY 2 EMT PERSONNEL IN STABLE CONDITION.
[2020-12-09] MEDS ORDERED: INSULIN REGULAR, HUMAN 100 UNIT/ML 3 ML VIAL SQ PRN (17:00)
== END 2020-12-08 17:55 | DRG 951 ==
LOC: ER 20:16 → TELE 22:10 → MED 12-05 11:19
PROVIDERS: ADMIT Family Medicine; ATTEND Internal Medicine
PROC: 0SSG34Z Reposition Left Ankle Joint with Internal Fixation Device, Percutaneous Approach (ICD-10-PCS; principal; 2020-12-06)
PROC: 0S9G0ZZ Drainage of Left Ankle Joint, Open Approach (ICD-10-PCS; 2020-12-06)
PROC: 0QBM0ZX Excision of Left Tarsal, Open Approach, Diagnostic (ICD-10-PCS; 2020-12-06)
PROC: 0QBH0ZX Excision of Left Tibia, Open Approach, Diagnostic (ICD-10-PCS; 2020-12-06)
PROC: 02HV33Z Insertion of Infusion Device into Superior Vena Cava, Percutaneous Approach (ICD-10-PCS; 2020-12-08)
PROC: B548ZZA Ultrasonography of Superior Vena Cava, Guidance (ICD-10-PCS; 2020-12-08)
DX: F10.129 Alcohol abuse with intoxication, unspecified (principal); N17.0 Acute kidney failure with tubular necrosis; E43 Unspecified severe protein-calorie malnutrition; M00.9 Pyogenic arthritis, unspecified; E11.42 Type 2 diabetes mellitus with diabetic polyneuropathy; M86.672 Other chronic osteomyelitis, left ankle and foot; E83.51 Hypocalcemia; E87.6 Hypokalemia; Z59.0 Homelessness; N18.9 Chronic kidney disease, unspecified; E11.69 Type 2 diabetes mellitus with other specified complication; S93.05XA Dislocation of left ankle joint, initial encounter; D64.9 Anemia, unspecified; D50.9 Iron deficiency anemia, unspecified; Z20.822 Contact with and (suspected) exposure to COVID-19; Y90.8 Blood alcohol level of 240 mg/100 ml or more; E88.09 Other disorders of plasma-protein metabolism, not elsewhere classified; Z68.30 Body mass index [BMI] 30.0-30.9, adult; M87.872 Other osteonecrosis, left ankle; M19.072 Primary osteoarthritis, left ankle and foot; M24.472 Recurrent dislocation, left ankle; R74.8 Abnormal levels of other serum enzymes; Z79.84 Long term (current) use of oral hypoglycemic drugs
CPT/HCPCS: 36415; 70450-TC; 73610-TC; 76700-TC; 80048-TC; 80053-TC; 80061-TC; 80076-TC; 81001; 82550-TC; 82728-TC; 82962-TC; 83540-TC; 83735-TC; 83970; 84100-TC; 84155; 84165; 85025-TC; 85610-TC; 85730-TC; 87070-TC; 87081-TC; 88305-TC; 88311-TC; 97112-TC; 97116-TC; 97530-TC; A6209; C1713; C1751; C9803; G0378; G0480; J0690; J1170; J1815; J1885; J2250; J2405; J2704; J2765; J3010; J3370; J3411; J3475; J3480; J3490; J7030; J7050; J7060

== ENCOUNTER 2020-12-16 00:36 | Inpatient (IN) | payer MEDICAID ==
[~2020-12-16] VITALS: Ht 165.1 cm; Wt 80.3 kg
[~2020-12-16 00:36] MED LIST: ERGO500014 PO; INSU100V7 SQ; LISI20TA30 PO; METF-440 PO
--- NOTE | 2020-12-16 00:56 | NUR ---
PATIENT CAME TO ER BED 12 C/O LEFT FOOT PAIN. PATIENT ARRIVED TO THE ER WITH A CAST IN HIS LEFT FOOT. PATIENT DOES NOT KNOW WHAT TYPE OF SURGERY HE RECEIVED. PATIENT STATES THAT HE LEFT A [facility] DUE TO NO ONE ANSWERING HIS CALL LIGHT. PATIENT SMELLS OF ALCOHOL. PATIENT IS AAOX3. NO SOB. BREATHING EVENLY AND UNLABORED ON ROOM AIR. CONNECTED TO THE MONITOR.
[2020-12-16] MEDS ORDERED: VANCOMYCIN 1 GM in IV D5W 250 ML IV ONE (01:00)
[2020-12-16] MEDS ORDERED: IV NS 0.9% 1,000 ML BAG IV ONE (01:00)
[2020-12-16] MEDS ORDERED: CEFEPIME 1 GM in IV D5W 50 ML IV ONE (01:00)
[2020-12-16 01:28] LABS: CARBON DIOXIDE 22 mmol/L (21-32); CHLORIDE 108 mmol/L (98-107); CREATININE 2.3 mg/dL (0.6-1.3); GLUCOSE 131 mg/dL (74-106); SODIUM SERUM 141 mmol/L (136-145); UREA NITROGEN, BLOOD 35 mg/dL (7-18)
[2020-12-16 01:29] LABS: BASOPHILS # (AUTO) 0.1 /CMM (0.0-0.2); BASOPHILS % (AUTO) 1.1 % (0.0-2.0); EOSINOPHILS % (AUTO) 2.3 % (0.0-6.0); HEMATOCRIT 21 % (39-51); HEMOGLOBIN 7.4 g/dL (13.5-17.5); LYMPHOCYTES # (AUTO) 1.7 /CMM (0.8-4.8); LYMPHOCYTES % (AUTO) 31.1 % (20.0-44.0); MEAN CORPUSCULAR HGB CONC 35 g/dl (31.0-36.0); MEAN CORPUSCULAR VOLUME 94 fL (80-96); MONOCYTES # (AUTO) 0.5 /CMM (0.1-1.30); MONOCYTES % (AUTO) 8.8 % (2.0-12.0); NEUTROPHILS # (AUTO) 3.1 /CMM (1.8-8.9); NEUTROPHILS % (AUTO) 56.7 % (43.0-81.0); PLATELET COUNT (AUTO) 134 /CMM (150-450); RED BLOOD CELL COUNT(AUTO) 2.27 MIL/uL (4.5-6.0); WHITE BLOOD COUNT (AUTO) 5.5 K/uL (4.3-11.0)
--- NOTE | 2020-12-16 01:43 | NUR ---
lactic acid 2
[2020-12-16] MEDS ORDERED: CEFEPIME 1 GM VIAL ONE (01:59)
[2020-12-16] MEDS ORDERED: VANCOMYCIN 1 GM VIAL ONE (01:59)
[2020-12-16 02:08] LABS: C-REACTIVE PROTEIN 2.7 mg/dL (0.0-0.9)
--- NOTE | 2020-12-16 02:25 | NUR ---
DR. RUIZ SPEAKING WITH DR. APONTE
--- NOTE | 2020-12-16 02:42 | NUR ---
COVID SWABS COLLECTED AND SENT TO LAB
[2020-12-16 03:30] LABS: BILIRUBIN,DIRECT 0.3 mg/dL (0.0-0.2); BILIRUBIN,TOTAL 0.6 mg/dL (0.2-1.0)
[2020-12-16] MEDS ORDERED: ACETAMINOPHEN 325 MG TABLET PO PRN (03:30)
[2020-12-16] MEDS ORDERED: ZOLPIDEM TARTRATE 5 MG TABLET PO PRN (03:30)
[2020-12-16] MEDS ORDERED: Z GUARD REMEDY 2 OZ OINT TP PRN (03:30)
[2020-12-16] MEDS ORDERED: ONDANSETRON HCL/PF 4 MG/2 ML VIAL IVP PRN (03:30)
[2020-12-16] MEDS ORDERED: MAGNESIUM HYDROXIDE 30 ML UDC PO PRN (03:30)
[2020-12-16] MEDS ORDERED: MAG HYDROX/AL HYDROX/SIMETH 30 ML UDC PO PRN (03:30)
--- NOTE | 2020-12-16 04:09 | NUR ---
BED ASSIGNMENT 115-2
--- NOTE | 2020-12-16 04:35 | NUR ---
RN NOTES RECEIVED ER ADMISSION REPORT FROM TESHA FISCHER. ALL PERTINENT ADMISSION INFO REGARDING PT NOTED. WILL WAIT FOR PT TO BE TRANSFERRED TO UNIT AND ADDRESS NEEDS ACCORDINGLY. BOOK PACKER MADE AWARE.
--- NOTE | 2020-12-16 04:39 | NUR ---
REPORT GIVEN TO ALLEGRA PARKINSON FOR KAT.
--- NOTE | 2020-12-16 05:00 | NUR ---
RN NOTES RECEIVED PT FROM ER VIA GURNEY ACCOMPANIED BY 2 ER STAFF AND TRANSFERRED TO BED VIA 2 PERSON ASSIST. PT IS ALERT AND ORIENTED X3-4. PT ON ROOM AIR WITH RESPIRATIONS EVEN AND UNLABORED. COMPREHENSIVE PHYSICAL ASSESSMENT AND PATIENT CARE DONE. CALL LIGHT WITHIN REACH, SAFETY MEASURES AND ISOLATION PRECAUTION IN PLACE, WILL CONTINUE MONITOR AND ASSESS THROUGHOUT THE SHIFT. WILL CARRY OUT MD ORDERS ACCORDINGLY. PROPOSAL ANALYST MADE AWARE.
--- NOTE | 2020-12-16 05:01 | NUR ---
RN NOTES REASSESSMENT NOT DONE FOR NS AND VANCO; WAS GIVEN FROM ER, PT WAS ADMITTED IN THE UNIT @0500
[2020-12-16] MEDS: IV 1/2NS 1000 ML 1,000 ML IV PRN ×2 (05:30→16:54)
[2020-12-16 05:54] VITALS: BP 97/73
[2020-12-16] MEDS ORDERED: DEXTROSE 50%-WATER 50 ML DISP.SYRIN IV PRN (06:00)
--- NOTE | 2020-12-16 06:50 | NUR ---
RN CLOSING NOTE: PATIENT REMAINS IN ROOM RESTING COMFORTABLY. NO SIGNS OF RESPIRATORY DISTRESS PATIENT STILL ON ROOM AIR ;TOLERATING WELL SATURATING @ >95% SP02.PATIENT IS CLEAN , DRY AND COMFORTABLE THROUGHOUT THE SHIFT. MD ORDERS CARRIED OUT SCHEDULED SAFETY MEASURES IMPLEMENTED, BED IN LOWEST POSITION, LOCKED, SIDE RAILS UP, CALL LIGHT WITHIN REACH. PATIENT ENDORSED TO INCOMING SHIFT RN WITH STABLE VITAL SIGN AND FOR CONTINUITY OF
--- NOTE | 2020-12-16 07:42 | NUR ---
RN OPENING NOTE RECEIVED PATIENT IN BED. A/O X3. ON ROOM AIR, SATURATING WELL AT 96%, NO SOB NOTED. IN NO APPARENT DISTRESS. DENIES ANY PAIN OR DISCOMFORT AT THIS TIME. IV ACCESS ON YANELY PICC LINE, INTACT. SAFETY MEASURES MAINTAINED. BED IN LOWEST POSITION, BRAKES LOCKED. SIDE RAILS UP X2. CALL LIGHT WITHIN REACH. WILL CONTINUE PLAN OF CARE.
[2020-12-16 08:00] VITALS: BP 161/80
[2020-12-16] MEDS: PANTOPRAZOLE 40 MG TABLET.DR PO SCH (08:45)
[2020-12-16] MEDS: HYDROCODONE/APAP 5/325MG TABLET PO PRN ×2 (08:46→16:31)
[2020-12-16] MEDS: BLOOD SUGAR DIAGNOSTIC 1 EACH STRIP VI SCH ×4 (08:54→22:27)
[2020-12-16 16:00] VITALS: BP 157/84
--- NOTE | 2020-12-16 18:49 | NUR ---
RN CLOSING NOTE PATIENT RESTING IN BED. A/O X3. ON ROOM AIR, TOLERATING WELL, SATURATING AT 100%, NO SOB NOTED. NO S/S OF RESPIRATORY DISTRESS. IV ACCESS ON YANELY PICC LINE, INTACT AND PATENT, 1/2 NS CURRENTLY RUNNING AT 75 ML/HR. ALL DUE MEDS WERE GIVEN ORDERED. ALL NEEDS HAVE BEEN MET. SAFETY MEASURES MAINTAINED. BED IN LOWEST POSITION, BRAKES LOCKED. SIDE RAILS UP X2. CALL LIGHT WITHIN REACH. WILL ENDORSE CONTINUITY OF CARE TO ONCOMING SHIFT.
--- NOTE | 2020-12-16 19:30 | NUR ---
RN OPENING NOTES: RECEIVED PT A/OX3-4 IN BED SLEEPING COMFORTABLY. PATIENT IN NO S/SX OF ACUTE DISTRESS AT THIS TIME. NO SOB NOTED. PATIENT'S BREATHING IS EVEN AND UNLABORED. PATIENT IS ON ROOM AIR; TOLERATING WELL. PATIENT ON TELE MONITORING READING SINUS RHYTHM HR IS @80s AT THE TIME OF RECEIVED. PATIENT ON CONSISTENT CARB DIET; TOLERATES WELL. NOTED IV SITE ON R UA PICC LINE (DOUBLE LUMEN);PATENT, INTACT AND FLUSHING WELL; NO S/S OF INFECTION OR INFILTRATION. WITH IV FLUID RUNNING ORDERED. SAFETY MEASURES HAVE BEEN PROVIDED AND IMPLEMENTED. PATIENT BED ALARM IS ON. HEAD OF BED ELEVATED. BED IS LOCKED, IN LOWEST POSITION AND SIDE RAILS UP. CALL LIGHT WITHIN REACH OF THE PATIENT. APPLICABLE ISOLATION PRECAUTIONS IN PLACE. WILL CONTINUE TO MONITOR AND REASSESS FOR ANY CHANGES AND WILL CARRY OUT ANY ONGOING AND ACTIVE MD ORDER.
[2020-12-16 20:00] VITALS: BP 148/76
[2020-12-16] MEDS ORDERED: VANCOMYCIN 1 GM in IV D5W 250ml IV SCH (20:00)
[2020-12-16] MEDS ORDERED: CEFAZOLIN 1 GM in IV D5W 50 ML IV SCH (21:00)
[2020-12-16] MEDS: CEFAZOLIN 2 GM in IV D5W 100 ML IV SCH (21:57)
[2020-12-16] MEDS: *INSULIN REGULAR(HUMULIN R)HUM 100 UNIT/ML VIAL SQ PRN (22:27)
--- NOTE | 2020-12-16 23:00 | NUR ---
RN NOTES NO CHANGE IN PATIENT CONDITION AT THIS TIME PATIENT VITALS STABLE, NO SIGNS OF ACUTE RESPIRATORY DISTRESS. BOAT RENTAL CLERK MADE AWARE. WILL CONTINUE TO MONITOR AND REASSESS FOR ANY CHANGES THROUGHOUT THE SHIFT.
[2020-12-17] VITALS: BP 135/76
[2020-12-17] MEDS ORDERED: CEFEPIME 1 GM in IV D5W 50 ML IV SCH (01:00)
--- NOTE | 2020-12-17 03:00 | NUR ---
RN NOTES PATIENT REMAINS IN NO ACUTE RESPIRATORY DISTRESS AT THIS TIME, NO CHANGES TO CONDITION/STATUS. AM PATIENT CARE DONE. SERVICE PARTS COORDINATOR WELL AWARE. WILL CONTINUE TO MONITOR AND REASSESS FOR ANY CHANGES THROUGHOUT THE SHIFT
[2020-12-17 04:00] VITALS: BP 144/71
--- NOTE | 2020-12-17 05:00 | NUR ---
RN NOTES PT REQUESTED FOR BLOOD SUGAR CHECK; RN ACKNOWLEDGED. BLOOD SUGAR CHECK DONE -76MG/DL.
[2020-12-17] MEDS: IV 1/2NS 1000 ML 1,000 ML IV PRN (06:30)
--- NOTE | 2020-12-17 07:15 | NUR ---
RN OPENING NOTES RECEIVED PT RESTING IN BED. A/O X3-4. ON ROOM AIR, SATURATING @97%. NO SOB OR ANY RESPIRATORY DISTRESS NOTED. DENIES ANY PAIN OR DISCOMFORT AT THIS TIME. IV ACCESS ON YANELY PICC LINE INTACT AND PATENT. 1/2 NS @75MLS/HR INFUSING WELL. AMBULATORY WITH CRUTCHES. SAFETY MEASURES IN PLACE. CALL LIGHT WITHIN REACH. BED LOCKED AND IN LOWEST POSITION WITH SIDE RAILS UP X2. WILL CONTINUE TO MONITOR.
[2020-12-17 07:26] LABS: MEAN CORPUSCULAR HGB CONC 35 g/dl (31.0-36.0); MONOCYTES # (AUTO) 0.4 /CMM (0.1-1.30); WHITE BLOOD COUNT (AUTO) 4.2 K/uL (4.3-11.0)
[2020-12-17] MEDS: BLOOD SUGAR DIAGNOSTIC 1 EACH STRIP VI SCH ×4 (07:30→22:28)
[2020-12-17 07:43] LABS: BASOPHILS % (AUTO) 0.5 % (0.0-2.0); EOSINOPHILS % (AUTO) 1.7 % (0.0-6.0); LYMPHOCYTES # (AUTO) 0.9 /CMM (0.8-4.8); LYMPHOCYTES % (AUTO) 20.8 % (20.0-44.0); MEAN CORPUSCULAR VOLUME 94 fL (80-96); MONOCYTES % (AUTO) 8.8 % (2.0-12.0); NEUTROPHILS # (AUTO) 2.9 /CMM (1.8-8.9); NEUTROPHILS % (AUTO) 68.2 % (43.0-81.0); PLATELET COUNT (AUTO) 80 /CMM (150-450); RED BLOOD CELL COUNT(AUTO) 2.01 MIL/uL (4.5-6.0)
[2020-12-17 07:48] LABS: CALCIUM, SERUM 8.3 mg/dL (8.5-10.1); HEMATOCRIT 19 % (39-51); HEMOGLOBIN 6.7 g/dL (13.5-17.5); PHOSPHORUS 3.7 mg/dL (2.5-4.9); POTASSIUM 3.7 mmol/L (3.5-5.1)
[2020-12-17 07:53] LABS: MAGNESIUM 1.2 mg/dL (1.8-2.4)
[2020-12-17 07:58] LABS: THYROID STIMULATING HORMONE 3.291 uIU/mL (0.358-3.74)
[2020-12-17 08:00] VITALS: BP 141/74
[2020-12-17] MEDS: PANTOPRAZOLE 40 MG TABLET.DR PO SCH (09:15)
[2020-12-17] MEDS: INSULIN REGULAR, HUMAN 100 UNIT/ML 3 ML VIAL SQ PRN ×3 (09:23→17:54)
--- NOTE | 2020-12-17 09:23 | NUR ---
RN NOTES BLOOD SUGAR OF 111, NO INSULIN COVERAGE.
[2020-12-17 09:27] LABS: BAND % (MANUAL) 2 % (0.0-5.0); EOSINOPHILS % (MANUAL) 2 % (0-4); LYMPHOCYTES % (MANUAL) 16 % (16-48); MONOCYTES % (MANUAL) 6 % (0-11.0); NEUTROPHILS % (MANUAL) 74 (42-76)
[2020-12-17] MEDS: CEFAZOLIN 2 GM in IV D5W 100 ML IV SCH ×2 (10:00→21:12)
[2020-12-17] MEDS ORDERED: Magnesium 1GM/D5W 100ML PREMIX 100 ML IV SCH (11:00)
[2020-12-17 12:00] VITALS: BP 135/74
[2020-12-17 16:00] VITALS: BP 151/87
--- NOTE | 2020-12-17 17:30 | NUR ---
RN NOTES BLOOD SUGAR OF 142, INSULIN COVERAGE OF 2 UNITS. PT REFUSED DESPITE EDUCATION X3.
--- NOTE | 2020-12-17 18:55 | NUR ---
RN CLOSING NOTES NO SIGNIFICANT CHANGES THROUGHOUT THE SHIFT. NO SOB. NOT IN DISTRESS. VS WNL. NO PAIN REPORTED. ALL DUE MEDS GIVEN. NEEDS ATTENDED. SAFETY MEASURES STILL IN PLACE. WILL ENDORSE TO NIGHT RN FOR KAT.
--- NOTE | 2020-12-17 19:50 | NUR ---
RN OPENING NOTES, RECEIVED PT RESTING IN BED. A/O X, ON ROOM AIR NO SOB/ACUTE DISTRESS NOTED WITH OPTIMAL O2 SATURATION, DENIES ANY PAIN OR DISCOMFORT AT THIS TIME, NSR IN TELE MONITOR HR 90S AT THIS TIME, YANELY PICC LINE IN PLACE, PATENT AND INTACT, 1/2 NS @75MLS/HR INFUSING WELL, PATIENT TOLERATED WELL, NOTED HG 6.7 THIS MORNING, PER SANTY RN DR PASCAL AWARE WITH NNO BUT COLLECT STOOL FOR OCCULT BLOOD, NO BM YET, ALL SAFETY MEASURES IN PLACE, CALL LIGHT WITHIN REACH. BED LOCKED AND IN LOWEST POSITION WITH SIDE RAILS UP X2, WILL CONTINUE TO MONITOR CLOSELY.
[2020-12-17 20:00] VITALS: BP 137/81
[2020-12-17] MEDS: HYDROCODONE/APAP 5/325MG TABLET PO PRN (21:17)
[2020-12-17] MEDS: *INSULIN REGULAR(HUMULIN R)HUM 100 UNIT/ML VIAL SQ PRN (22:29)
[2020-12-18] VITALS (13 sets, daily range): BP systolic 125–152; BP diastolic 76–88
--- NOTE | 2020-12-18 06:42 | NUR ---
RN CLOSING NOTES, NO SIGNIFICANT CHANGE IN CONDITION DURING THE NIGHT, PATIENT REFUSING IV FLUIDS, KERZUMA TIRE DESIGN ENGINEER AWARE, ALL SAFETY MEASURES IN PLACE, CALL LIGHT WITHIN REACH. BED LOCKED AND IN LOWEST POSITION WITH SIDE RAILS UP X2, WILL ENDORSE CONTINUITY OF CARE TO ONCOMING NURSE.
[2020-12-18 07:15] LABS: BASOPHILS % (AUTO) 0.7 % (0.0-2.0); EOSINOPHILS % (AUTO) 2.7 % (0.0-6.0); LYMPHOCYTES # (AUTO) 0.9 /CMM (0.8-4.8); LYMPHOCYTES % (AUTO) 24.6 % (20.0-44.0); MEAN CORPUSCULAR HGB CONC 36 g/dl (31.0-36.0); MEAN CORPUSCULAR VOLUME 94 fL (80-96); MONOCYTES # (AUTO) 0.3 /CMM (0.1-1.30); MONOCYTES % (AUTO) 9.3 % (2.0-12.0); NEUTROPHILS # (AUTO) 2.3 /CMM (1.8-8.9); NEUTROPHILS % (AUTO) 62.7 % (43.0-81.0); PLATELET COUNT (AUTO) 83 /CMM (150-450); WHITE BLOOD COUNT (AUTO) 3.7 K/uL (4.3-11.0)
[2020-12-18] MEDS: BLOOD SUGAR DIAGNOSTIC 1 EACH STRIP VI SCH ×5 (07:30→22:25)
[2020-12-18 07:38] LABS: CALCIUM, SERUM 8.1 mg/dL (8.5-10.1); CREATININE 2.1 mg/dL (0.6-1.3); MAGNESIUM 1.3 mg/dL (1.8-2.4); PHOSPHORUS 3.6 mg/dL (2.5-4.9); POTASSIUM 3.3 mmol/L (3.5-5.1)
[2020-12-18 07:43] LABS: RED BLOOD CELL COUNT(AUTO) 1.97 MIL/uL (4.5-6.0)
[2020-12-18 07:46] LABS: HEMATOCRIT 18 % (39-51); HEMOGLOBIN 6.6 g/dL (13.5-17.5)
--- NOTE | 2020-12-18 07:50 | NUR ---
RN NOTES LAB CALLED AT 0751 CRITICAL LABS NOTED HgB 6.6, Gregory 18, notified via hospital phone awaiting any new orders at this time, will follow up, continuing to monitor, all VS in stable condition at this time, call light in reach.
[2020-12-18] MEDS: CEFAZOLIN 2 GM in IV D5W 100 ML IV SCH ×2 (08:47→22:19)
[2020-12-18] MEDS: PANTOPRAZOLE 40 MG TABLET.DR PO SCH (08:48)
[2020-12-18] MEDS: INSULIN REGULAR, HUMAN 100 UNIT/ML 3 ML VIAL SQ PRN ×2 (08:50→13:11)
--- NOTE | 2020-12-18 09:00 | NUR ---
WOUND CARE CONSULT: PT PRESENTS WITH LEFT LOWER LEG CAST IN PLACE WHICH IS SOILED AND NOTED TO HAVE CRACKING AROUND FOOT AREA, PRESENT ON ADMISSION. PT IS CONTINENT AND INDEPENDENT WITH BED MOBILITY. PT STATES HAS BEEN CRAWLING AROUND ON [facility] BEFORE ADMISSION. DR SHARMA TO SEE PT FOR DPM CONSULT. IN AGREEMENT WITH PLAN OF CARE.
[2020-12-18] MEDS ORDERED: POTASSIUM CHLORIDE 20 MEQ TAB.PRT.SR PO ONE (10:30)
[2020-12-18] MEDS: Magnesium 1GM/D5W 100ML PREMIX 100 ML IV SCH ×2 (11:04→12:22)
--- NOTE | 2020-12-18 13:11 | NUR ---
RN NOTES BLOOD SUGAR OF 154, PT REFUSED INSULIN. EDUCATED X3 STILL REFUSED. CHARGE NURSE AWARE.
--- NOTE | 2020-12-18 17:47 | NUR ---
RN NOTES PATIENT TRANSFERRED FROM BED 115 MED SURG 1ST FLOOR TO MED SURG 3RD FLOOR, ENDORSED TO SULEMA PARKINSON ROOM 322 -1 PER ACLS PROTOCOL AND SAFETY MEASURES IN PLACE , SAFE TRANSFER MOVED BED TO ROOM, ALL VS WITHIN NORMAL RANGE EXCEPT THE BS WAS 154 AND PATIENT REFUSED THE INSULIN TREATMENT AND SAID HE WAS GOING TO DRINK MORE WATER, EXPLAINED REASONS AND CONSEQUENCES OF NOT TAKING INSULIN PER MD ORDER AND ATTEMPTED ON 3 DIFFERENT TIMES TO GIVE THE INSULIN, STILL REFUSED TREATMENT, CALL LIGHT IN REACH AND MADE COMFORTABLE
--- NOTE | 2020-12-18 17:50 | NUR ---
INSPECTOR PLATING NOTES PATIENT RECEIVED FROM IRENE , REPORT GIVEN BY SANTY PARKINSON. PATIENT ALERT ORIENTED X 4. NO ACUTE DISTRESS NOTED. IV ACCESS PATENT AND INTACT, NO REDNESS , NO SWELLING NOTED. PLACED ON WORKSITE WELLNESS PRACTITIONER , SINUS RHYTHM . SAFETY MEASURES IN PLACE. CALL LIGHT WITH IN REACH. WILL CONTINUE TO MONITOR ACCORDINGLY.
[2020-12-18] MEDS: IV 1/2NS 1000 ML 1,000 ML IV PRN (17:52)
--- NOTE | 2020-12-18 18:30 | NUR ---
DRAG SAWYER NOTES STARTED BLOOD TRANSFUSION, VITAL SIGNS STABLE. WILL CONTINUE TO MONITOR .
--- NOTE | 2020-12-18 18:45 | NUR ---
RIVET HOLE PUNCHER NOTES BLOOD TRANSFUSION ON GOING , VITAL SIGNS REMAIN STABLE. NO ACUTE DISTRESS NOTED. NO ADVERSE REACTION OF BLOOD TRANSFUSION NOTED. WILL CONTINUE TO MONITOR .
--- NOTE | 2020-12-18 19:00 | NUR ---
SCANNING COORDINATOR NOTES PATIENT IN BED. ALERT ORIENTED X 4. NO ACUTE DISTRESS NOTED . BREATHING UNLABORED. NO SOB NOTED. BLOOD TRANSFUSION ON GOING , VITAL SIGNS REMAIN STABLE. NO ADVERSE REACTION OF BLOOD TRANSFUSION NOTED. IV ACCESS PATENT AND INTACT, NO REDNESS NO SWELLING NOTED. SAFETY MEASURES IN PLACE. CALL LIGHT WITHIN REACH. WILL CONTINUE TO MONITOR ACCORDINGLY.
--- NOTE | 2020-12-18 19:05 | NUR ---
SCUTCHER TENDER NOTES PATIENT ALERT ORIENTED X4. SINUS RHYTHM ON TELE MONITOR. NO ACUTE DISTRESS NOTED. BLOOD TRANSFUSION ON GOING , VITAL SIGNS REMAIN STABLE. NO ADVERSE REACTION OF BLOOD TRANSFUSION NOTED. ENDORSED TO NIGHT NURSE FOR CONTINUITY OF CARE.
--- NOTE | 2020-12-18 19:50 | NUR ---
DR. BURNS CALLED AND PLANS TO DO CASTING TONIGHT AT THE BEDSIDE. SUPPLIES ARE NOT AT THE BEDSIDE. NURSING LAST PULLER CALLED AND INFORMED AND WILL DELIVER CASTING CART TO BEDSIDE. Addendum: 12/18/20 at 2340 by CLEMENTINA LIGHT RN 2129 casting cart and supplies placed at bedside. dr. burns called and left message informing him supplies are at the bedside.
--- NOTE | 2020-12-18 22:15 | NUR ---
one unit of prbc administered, patient had no reaction
[2020-12-18] MEDS: *INSULIN REGULAR(HUMULIN R)HUM 100 UNIT/ML VIAL SQ PRN (22:28)
[2020-12-18] MEDS: HYDROCODONE/APAP 5/325MG TABLET PO PRN (22:31)
--- NOTE | 2020-12-18 22:50 | NUR ---
Dr. Bowden at bedside and performed cast removal and application of new cast. time out performed prior to bedside procedure. wound culture taken of left foot. new cast placed on patients foot. patient tolerated the procedure well.
[2020-12-19] VITALS: BP 150/88
[2020-12-19 06:00] VITALS: BP 146/90
[2020-12-19 07:22] LABS: BASOPHILS % (AUTO) 0.7 % (0.0-2.0); EOSINOPHILS % (AUTO) 2.7 % (0.0-6.0); HEMATOCRIT 22 % (39-51); HEMOGLOBIN 7.6 g/dL (13.5-17.5); LYMPHOCYTES # (AUTO) 1.2 /CMM (0.8-4.8); MEAN CORPUSCULAR HGB CONC 35 g/dl (31.0-36.0); MEAN CORPUSCULAR VOLUME 94 fL (80-96); MONOCYTES # (AUTO) 0.4 /CMM (0.1-1.30); MONOCYTES % (AUTO) 9.8 % (2.0-12.0); NEUTROPHILS # (AUTO) 2.7 /CMM (1.8-8.9); NEUTROPHILS % (AUTO) 60.8 % (43.0-81.0); PLATELET COUNT (AUTO) 91 /CMM (150-450); WHITE BLOOD COUNT (AUTO) 4.5 K/uL (4.3-11.0)
[2020-12-19 07:42] LABS: CALCIUM, SERUM 7.9 mg/dL (8.5-10.1); CREATININE 2.1 mg/dL (0.6-1.3); POTASSIUM 3.6 mmol/L (3.5-5.1)
[2020-12-19 08:00] VITALS: BP 151/86
--- NOTE | 2020-12-19 08:00 | NUR ---
CONFIGURATION MANAGEMENT MANAGER OPENING NOTES PATIENT IN BED, AWAKE, ALERT. ORIENTED X4, ABLE TO MAKE NEEDS KNOWN, VERBALLY RESPONSIVE. DENIES PAIN OR DISCOMFORT AT THIS TIME. BREATHING EVEN AND NON-LABORED. NOTED RIGHT UPPER ARM PICC LINE, INTACT, CONNECTED TO 1/2 NS AT 75CC/HR. LEFT LEG CAST NOTED, INTACT. ALL NEEDS ATTENDED PROMPTLY. CALL LIGHT WITHIN REACH.
[2020-12-19] MEDS: PANTOPRAZOLE 40 MG TABLET.DR PO SCH (08:04)
[2020-12-19] MEDS: BLOOD SUGAR DIAGNOSTIC 1 EACH STRIP VI SCH ×3 (08:04→17:56)
[2020-12-19] MEDS ORDERED: CEFA1VIA19 IJ (09:56)
[2020-12-19] MEDS: CEFAZOLIN 2 GM in IV D5W 100 ML IV SCH (10:05)
--- NOTE | 2020-12-19 15:52 | NUR ---
"SS Consult: SS Consult requested for homelessness. The pt. is a 50-year old male who is Romanian speaking. This pt. is well known to this speech writer from previous admissions. SW met with pt. bedside. The pt. is alert & oriented x 4 and makes appropriate eye contact. The pt. stated he came in to receive treatment on his left foot. Pt. was discharged to [facility] [phone]. Pt. stated he left [facility] after first night there because they werent giving me treatment for the pain. Patient admits to drinking Alcohol after he left [facility]. Pt. has Hx. of alcoholism. SW provided pt. with addiction resources and pt. is agreeable. The pt. states he has been homeless for the last 4 months. Pt. states his support system includes his ex -girlfriend, Vidya [phone]. Per case management note on 12/19/2020: Per MD, SNF placement is required for IV antibiotics and PT. CHELITA informed patient and pt. stated he is agreeable to SNF placement for PT and antibiotics. Pt. signed homeless waiver and it was placed in the pt.s chart. SW provided pt. with homeless resources and pt. accepted them: Substance Abuse resources provided included: [facility] Substance Abuse Self-Helpline ([facility]) ; [facility] -[facility]LP [address] [facility]. [place] [phone] ; [facility] [address] [facility] [address] ; [facility] Rehabilitation Program [address] [facility] [address] ; [facility] [address] ; [facility] 8990 [facility] [address] ; [facility] [address] [facility] [address] ; [facility] Substance Abuse Helpline([facility] ; [facility] Family Counseling ; [facility] [place]; [place] [employer] [place]; [facility] [place]; [facility] Domingo Rouse; [facility]; [facility] [place]; [facility] [place]; [facility]. [place]; Alcoholics Anonymous -SFV; Hy-Iipa-Kaiqyss ; Marijuana Anonymous -SFV; Narcotics Anonymous www.na.org; Year-round shelters: [place] [address] [place], [place] [phone] ; [facility] [place] [address] [place] [address]; [facility] [id number] [facility] [id number] Winter Shelters: [facility] Provider: [facility] [place] Address: [address] Hospital[address] [place], [address] # of Beds: 47 Population Served: [facility] 6 | [facility] Krista Torres [place] Provider: [facility] Address: [address] [place] [address], [address] # of Beds: 66 Population Served: [facility] [employer] [place] Provider: [facility] Address: [address] [facility], [address] # of Beds: 56 Population Served: [facility] Horace DhaliwalTrena Babbitt Provider: [facility] Address: [address] [facility], [address] # of Beds: 49 Population Served: [facility] 8 | [facility] Provider: First [facility] Serve Address: [address] [facility], [address] # of Beds: 37 Population Served: [facility] Hygiene: [facility]: [address]. [place] ; [facility] [address] [facility] ; [facility] [address] [place] . Food Resources: [facility] at [facility]- [address] [place]; Meet Each Need with Dignity ([facility]) [address] [facility] [place]; [facility] Food Pantry 0051 [facility]; [facility] 2832 [facility] [place]. Mental Health resources provided: [facility] [address] [place] [address] ; [facility] [address] [facility] [address], [place] [address] ; [facility] [address] [place] [address] ; [facility] [address] [place], [place] [phone] Healthcare Clinics: [facility] [address] [facility], [address] [place]. [place] ; [facility] [address] [facility] [address] [place] [address]; [facility] [address] [facility]. [place] [phone]) [phone] Counseling--Outpatient [facility] [address] [facility], [place] [address] (Specializes in in-depth psychotherapy for emotional distress: anxiety, depression, interpersonal conflicts, life transitions, childhood abuse) [facility] [address] [place] [address] (Assist with solving problem marital difficulties, separation & divorce, aging parents, & grief, chronic & terminal illness) [facility] [address] [place] [address] (Deal with loss & grief, anxiety, marital difficulties) Homebound/Mental Health Services [address], [address] [place], [place] [address] (Provide in-home mental services to people who are incapable of leaving their homes) [facility] Needs of the Elderly Senior Service/Resource Center [address] [place], [place] [phone] [facility] [address]. [place], [place] [phone] PSYCHIATRIC OUTPATIENT SERVICES [facility] Partial Hospitalization and Intensive Outpatient Program (Managed Care and [place] Only)[address] Nak[address] Jimenez. [facility] [phone] [facility] Partial Hospitalization and Outpatient Oiewnyy[address] [place], [place] [phone] [facility] Partial Hospitalization and Outpatient [id number] Domingo Rouse [facility] [place], [place] [phone] [facility] Mental Health [place] Ffs[address] [place], [place] [phone] [facility] Partial Hospitalization and Outpatient [id number] [facility] Domingo [place], [phone] "
[2020-12-19 16:00] VITALS: BP 152/89
[2020-12-19] MEDS: HYDROCODONE/APAP 5/325MG TABLET PO PRN (18:38)
--- NOTE | 2020-12-19 18:42 | NUR ---
MS RN CLOSING NOTES PATIENT IN BED, AWAKE, ALERT, ORIENTED X4, ABLE TO MAKE NEEDS KNOWN. BREATHING EVEN AND NON-LABORED. ALL DUE MEDS ARE GIVEN ORDERED. RIGHT UPPER ARM PICC LINE IN PLACE, INTACT. SAFETY MEASURES IN PLACE; BED IN LOWEST LOCKED POSITION WITH SIDERAILS UP. LEFT LOWER EXTREMITY CAST IN PLACE. ALL NEEDS MET ATTENDED PROMPTLY. CALL LIGHT WITHIN REACH.
--- NOTE | 2020-12-19 19:30 | NUR ---
MS RN NOTES PATIENT IN BED. A/OX4. NO S/S OF DISTRESS. NO C/O PAIN AT THE MOMENT. YANELY PICC LINE NOTED IN PLACE RUNNING 1/2 NS @ 45 MLS/HR. SAFETY IN PLACE: BED IN LOWEST, LOCKED POSITION, CALL LIGHT WITHIN REACH. WILL CONTINUE TO MONITOR.
[2020-12-19 20:00] VITALS: BP 149/78
--- NOTE | 2020-12-19 21:30 | NUR ---
MS DISCHARGE NOTES PATIENT DISCHARGED ON A MEDICALLY STABLE CONDITION. PICKED UP BY EMT AT AROUND 2109. PATIENT A/OX4. NO S/S OF DISTRESS. NO C/O PAIN AT THE MOMENT OF DC. PICC LINE KEPT IN PLACE IN RIGHT UPPER ARM BECAUSE OF CONTINUING ANTIBIOTIC ORDERED BY DOCTOR. LEFT LOWER CAST NOTED IN PLACE. BELONGINGS SIGNED AND ACCOUNTED FOR. PAPER WORKS SIGNED BY PATIENT AND GIVEN TO EMT BY PATIENT. FACE SHEET GIVEN TO EMT. REPORT GIVEN TO JAY ALLEN. PATIENT WAS TAKEN DOWN THE LOBBY VIA GURNEY.
== END 2020-12-19 22:00 | DRG 344 ==
LOC: ER 00:38 → MEDSG1 04:11 → TELE1 05:35 → TELE 12-18 16:17 → MED 12-19 09:43
PROVIDERS: ADMIT Internal Medicine; ATTEND Internal Medicine
PROC: 30233N1 Transfusion of Nonautologous Red Blood Cells into Peripheral Vein, Percutaneous Approach (ICD-10-PCS; principal; 2020-12-18)
DX: E11.69 Type 2 diabetes mellitus with other specified complication (principal); M86.672 Other chronic osteomyelitis, left ankle and foot; N17.0 Acute kidney failure with tubular necrosis; L03.116 Cellulitis of left lower limb; F10.129 Alcohol abuse with intoxication, unspecified; Z59.0 Homelessness; Z79.4 Long term (current) use of insulin; D64.9 Anemia, unspecified; E11.22 Type 2 diabetes mellitus with diabetic chronic kidney disease; N18.9 Chronic kidney disease, unspecified; I12.9 Hypertensive chronic kidney disease with stage 1 through stage 4 chronic kidney disease, or unspecified chronic kidney disease; M19.90 Unspecified osteoarthritis, unspecified site; K74.60 Unspecified cirrhosis of liver; Z91.19 Patient's noncompliance with other medical treatment and regimen; Y90.8 Blood alcohol level of 240 mg/100 ml or more; Z20.822 Contact with and (suspected) exposure to COVID-19
CPT/HCPCS: 36415; 73610-TC; 73630-TC; 80048-TC; 80061-TC; 80202-TC; 82247-TC; 82248-TC; 82962-TC; 83605-TC; 83735-TC; 84100-TC; 84443-TC; 85025-TC; 85652-TC; 86140-TC; 86850-TC; 87040-TC; 87070-TC; 87081-TC; 97112-TC; 97116-TC; 97530-TC; A4217; A6253; G0378; G0480; J0690; J0692; J1815; J2405; J3370; J3475; J3490; J7030; J7060; P9016; U0003

== ENCOUNTER 2021-01-17 13:02 | Inpatient (IN) | payer MEDICAID ==
[~2021-01-17] VITALS: Ht 188 cm; Wt 75.7 kg
[~2021-01-17 13:02] MED LIST changes: +CEFA1VIA19 IJ
--- NOTE | 2021-01-17 13:20 | NUR ---
bib SAILAJA george, sent by dr arceo for osteomyelitis, L tib/fib fx. Patient a/ox4, breathing even and unlabored, no sob noted, needs attended. Presented with a YANELY PICC LINE. Patient noted with a hard cast on his left lower extremity.
[2021-01-17] MEDS ORDERED: SILV20CR13 TP (13:43)
[2021-01-17] MEDS ORDERED: HYDR-3972 PO (13:43)
[2021-01-17] MEDS ORDERED: MAGN400O6 PO (13:43)
[2021-01-17] MEDS ORDERED: DOCU-141 PO (13:43)
[2021-01-17] MEDS ORDERED: CEFA1VIA2 IV (13:43)
[2021-01-17] MEDS ORDERED: MULT-447 PO (13:43)
[2021-01-17] MEDS ORDERED: SENN-261 PO (13:43)
[2021-01-17] MEDS ORDERED: AMIN30LI2 PO (13:43)
[2021-01-17] MEDS ORDERED: ASCO-352 PO (13:43)
[2021-01-17] MEDS ORDERED: ACET-868 PO (13:43)
[2021-01-17 13:49] LABS: BASOPHILS # (AUTO) 0.1 /CMM (0.0-0.2); EOSINOPHILS % (AUTO) 3.7 % (0.0-6.0); HEMATOCRIT 24 % (39-51); HEMOGLOBIN 8.4 g/dL (13.5-17.5); LYMPHOCYTES # (AUTO) 1.7 /CMM (0.8-4.8); LYMPHOCYTES % (AUTO) 27.5 % (20.0-44.0); MEAN CORPUSCULAR HGB CONC 35 g/dl (31.0-36.0); MEAN CORPUSCULAR VOLUME 95 fL (80-96); MONOCYTES # (AUTO) 0.5 /CMM (0.1-1.30); MONOCYTES % (AUTO) 8.8 % (2.0-12.0); NEUTROPHILS # (AUTO) 3.7 /CMM (1.8-8.9); PLATELET COUNT (AUTO) 122 /CMM (150-450); RED BLOOD CELL COUNT(AUTO) 2.54 MIL/uL (4.5-6.0); WHITE BLOOD COUNT (AUTO) 6.2 K/uL (4.3-11.0)
[2021-01-17 14:11] LABS: CALCIUM, SERUM 10.1 mg/dL (8.5-10.1); CARBON DIOXIDE 21 mmol/L (21-32); CHLORIDE 103 mmol/L (98-107); CREATININE 3.6 mg/dL (0.6-1.3); GLUCOSE 77 mg/dL (74-106); POTASSIUM 5.2 mmol/L (3.5-5.1); SODIUM SERUM 136 mmol/L (136-145); UREA NITROGEN, BLOOD 70 mg/dL (7-18)
[2021-01-17 14:15] LABS: ALBUMIN 3.1 g/dL (3.4-5.0); ALKALINE PHOSPHATASE 248 U/L (46-116); ASPARTATE AMINOTRANSFERASE 31 U/L (15-37); BILIRUBIN,DIRECT 0.2 mg/dL (0.0-0.2); BILIRUBIN,TOTAL 0.4 mg/dL (0.2-1.0); TOTAL PROTEIN, SERUM 9.2 g/dL (6.4-8.2)
[2021-01-17] MEDS ORDERED: HYDROCODONE/APAP 5/325MG TABLET ONE (14:17)
--- NOTE | 2021-01-17 14:20 | NUR ---
PATIENT SEEN AND EVALUATED BY DR. GILBERT. PATIENT IS REQUESTING FOR A [employer] X1.
[2021-01-17] MEDS ORDERED: HYDROCODONE/APAP 5/325MG TABLET PO ONE (14:30)
[2021-01-17] MEDS ORDERED: IV NS 0.9% 1,000 ML BAG IV ONE (14:30)
--- NOTE | 2021-01-17 14:33 | NUR ---
COVID SWAB SENT TO LAB.
[2021-01-17 14:42] LABS: ALANINE AMINOTRANSFERASE < 6 U/L (12-78)
--- NOTE | 2021-01-17 14:43 | NUR ---
PILOT SUPERVISOR AT BEDSIDE
--- NOTE | 2021-01-17 14:47 | NUR ---
CALLED NURSING SUP FOR M/S BED.
--- NOTE | 2021-01-17 15:05 | NUR ---
NURSING SUP GAVE 118-1.
--- NOTE | 2021-01-17 15:12 | NUR ---
COVID ANTIGEN SENT TO LAB.
--- NOTE | 2021-01-17 15:17 | NUR ---
REPORT GIVEN TO SARY RN FOR KAT.
--- NOTE | 2021-01-17 15:46 | NUR ---
DR. RAND AT BEDSIDE REMOVING THE CAST AND WILL PLACE A NEW HARD CAST ON LLE.
[2021-01-17 16:00] VITALS: BP 154/82
--- NOTE | 2021-01-17 16:00 | NUR ---
covid negative per lab.
--- NOTE | 2021-01-17 16:20 | NUR ---
patient transferred to room 118-1 in stable condition. New cast in placed on left lower extremity. Needs attended.
--- NOTE | 2021-01-17 16:45 | NUR ---
Patient received from ED in good stable condition. Per report patient had a left leg cast redone in ED. Vitals and initial assessments done. Fall precautions observed. Bed is in lowest and locked position. Patient teaching done regarding use of call light.
[2021-01-17] MEDS: IV NS 0.9% 1,000 ML IV PRN (16:53)
[2021-01-17] MEDS ORDERED: MAG HYDROX/AL HYDROX/SIMETH 30 ML UDC PO PRN (17:00)
[2021-01-17] MEDS ORDERED: ONDANSETRON HCL/PF 4 MG/2 ML VIAL IVP PRN (17:00)
[2021-01-17] MEDS ORDERED: ZOLPIDEM TARTRATE 5 MG TABLET PO PRN (17:00)
[2021-01-17] MEDS ORDERED: Z GUARD REMEDY 2 OZ OINT TP PRN (17:00)
[2021-01-17] MEDS ORDERED: ACETAMINOPHEN 325 MG TABLET PO PRN (17:00)
--- NOTE | 2021-01-17 19:15 | NUR ---
RN NOTE RECEIVED PATIENT IN BED, AO X 4, IN NO S/SX OF ACUTE DISTRESS AT THIS TIME. NO SOB NOTED. PATIENT'S BREATHING IS EVEN AND UNLABORED. SATURATION 100% ON ROOM AIR, HR IS 66. NOTED YANELY PICC LINE, ALL HUBS PATENT AND FLUSHING WELL, NO S/S OF INFECTION. NOTED CAST ON L LEG INTACT. SAFETY MEASURES IMPLEMENTED. PATIENT BED ALARM IS ON. HEAD OF BED ELEVATED. BED IS LOCKED, IN LOWEST POSITION AND SIDE RAILS UP. CALL LIGHT WITHIN REACH OF THE PATIENT. WILL CONTINUE TO MONITOR AND REASSESS FOR ANY CHANGES.
--- NOTE | 2021-01-17 19:18 | NUR ---
RN CLOSING NOTES Patient currently in bed. Alert and oriented x 4. No c/o sob. IV picc line to right upper arm noted with iv normal saline running at 75ml/hour. Patient teaching done regarding safety and fall precautions. Patient noted with left leg hard cast , circulation observed in foot. Patient will be monitored and call light within reach. Endorsed to next shift for KAT and observe for safety and falls. Bed is in lowest and locked position.
[2021-01-17 20:00] VITALS: BP 158/89
[2021-01-17] MEDS: CEFTRIAXONE 2 G in IV D5W 100 ML IV SCH (21:50)
[2021-01-17] MEDS: HEPARIN SODIUM, PORCINE 5000 UNITS/1 ML VIAL SQ SCH (21:52)
[2021-01-18] VITALS: BP 158/89
[2021-01-18 04:00] VITALS: BP 133/80
[2021-01-18] MEDS: HYDROCODONE/APAP 5/325MG TABLET PO PRN ×3 (06:14→22:51)
[2021-01-18 06:34] LABS: BASOPHILS % (AUTO) 0.8 % (0.0-2.0); EOSINOPHILS % (AUTO) 3.6 % (0.0-6.0); HEMATOCRIT 23 % (39-51); HEMOGLOBIN 8.2 g/dL (13.5-17.5); LYMPHOCYTES # (AUTO) 1.4 /CMM (0.8-4.8); LYMPHOCYTES % (AUTO) 24.1 % (20.0-44.0); MEAN CORPUSCULAR HGB CONC 35 g/dl (31.0-36.0); MEAN CORPUSCULAR VOLUME 94 fL (80-96); MONOCYTES # (AUTO) 0.5 /CMM (0.1-1.30); MONOCYTES % (AUTO) 9.3 % (2.0-12.0); NEUTROPHILS # (AUTO) 3.5 /CMM (1.8-8.9); NEUTROPHILS % (AUTO) 62.2 % (43.0-81.0); PLATELET COUNT (AUTO) 109 /CMM (150-450); RED BLOOD CELL COUNT(AUTO) 2.49 MIL/uL (4.5-6.0); WHITE BLOOD COUNT (AUTO) 5.7 K/uL (4.3-11.0)
[2021-01-18 07:13] LABS: CALCIUM, SERUM 9.7 mg/dL (8.5-10.1); MAGNESIUM 1.7 mg/dL (1.8-2.4); PHOSPHORUS 4.7 mg/dL (2.5-4.9)
[2021-01-18] MEDS: IV NS 0.9% 1,000 ML IV PRN ×2 (07:29→22:51)
--- NOTE | 2021-01-18 07:43 | NUR ---
MS RN OPENING NOTES RECEIVED PATIENT IN BED, AWAKE, A/O X4. PATIENT ON ROOM AIR; BREATHING EVEN AND UNLABORED; NO SOB NOTED. NO COMPLAINS OF PAIN AT THIS TIME. HAS A LEFT LEG CAST. YANELY PICC LINE PRESENT AND INTACT INFUSING NS @75 MLS/ HR. SAFETY PRECAUTIONS IN PLACE; BED IN LOS POSITION AND LOCKED, RAILS UP X2, CALL LIGHT WITHIN REACH. WILL CONTINUE TO MONITOR PATIENT.
[2021-01-18] MEDS: HEPARIN SODIUM, PORCINE 5000 UNITS/1 ML VIAL SQ SCH ×2 (08:18→21:12)
[2021-01-18] MEDS: NEOMY SULF/BACITRAC ZN/POLY 15 GM TUBE TP SCH (08:20)
[2021-01-18 12:08] VITALS: BP 133/80
--- NOTE | 2021-01-18 12:52 | NUR ---
MS RN NOTES LAB CALLED NOTIFYING THAT PATIENT HAS BLOOD CULTURE POSITIVE FOR GRAM + COCCI IN CLUSTER. MD NOTIFIED.
--- NOTE | 2021-01-18 16:18 | NUR ---
MS RN NOTES PATIENT COMPLAINING OF PAIN 9/10 IN HIS LEFT FOOT; REQUESTING PRN PAIN MEDICATION. PRN NORCO [phone] ADMINISTERED. WILL REASSESS.
--- NOTE | 2021-01-18 18:51 | NUR ---
MS RN CLOSING NOTES PATIENT REMAINS IN BED, AWAKE, A/O X4. PATIENT ON ROOM AIR; BREATHING EVEN AND UNLABORED; NO SOB NOTED. PAIN TREATED WITH PRN NORCO. YANELY PICC LINE PRESENT AND INTACT INFUSING NS @75 MLS/ HR. SAFETY PRECAUTIONS IN PLACE; BED IN LOS POSITION AND LOCKED, RAILS UP X2, CALL LIGHT WITHIN REACH. WILL ENDORSE TO FORMULA WEIGHER NURSE.
[2021-01-18 20:00] VITALS: BP 128/84
--- NOTE | 2021-01-18 20:00 | NUR ---
RN NOTE PATIENT AWAKE IN BED, A/OX4. ON ROOM AIR, O2 SAT WNL. NO SOB OR RESPIRATORY DISTRESS. DENIES ANY PAIN AT THIS TIME. WITH YANELY PICC LINE RUNNING NS @ 75ML/HR, NO S/S OF INFILTRATION. BED LOCKED AND IN LOWEST POSITION. CALL LIGHT WITHIN REACH. ALL NEEDS ANTICIPATED.
[2021-01-18] MEDS: CEFTRIAXONE 2 G in IV D5W 100 ML IV SCH (21:08)
[2021-01-19 04:00] VITALS: BP 134/80
[2021-01-19 06:22] LABS: BASOPHILS % (AUTO) 0.9 % (0.0-2.0); EOSINOPHILS % (AUTO) 2.3 % (0.0-6.0); HEMATOCRIT 22 % (39-51); HEMOGLOBIN 7.7 g/dL (13.5-17.5); LYMPHOCYTES # (AUTO) 1.2 /CMM (0.8-4.8); LYMPHOCYTES % (AUTO) 26.4 % (20.0-44.0); MEAN CORPUSCULAR HGB CONC 36 g/dl (31.0-36.0); MEAN CORPUSCULAR VOLUME 94 fL (80-96); MONOCYTES # (AUTO) 0.5 /CMM (0.1-1.30); MONOCYTES % (AUTO) 11.2 % (2.0-12.0); NEUTROPHILS # (AUTO) 2.8 /CMM (1.8-8.9); NEUTROPHILS % (AUTO) 59.2 % (43.0-81.0); PLATELET COUNT (AUTO) 93 /CMM (150-450); RED BLOOD CELL COUNT(AUTO) 2.31 MIL/uL (4.5-6.0); WHITE BLOOD COUNT (AUTO) 4.7 K/uL (4.3-11.0)
--- NOTE | 2021-01-19 06:48 | NUR ---
RN NOTE PATIENT A/OX4. ON ROOM AIR, O2 SAT 100%. NO SOB OR RESPIRATORY DISTRESS. DENIES ANY PAIN AT THIS TIME. WITH YANELY PICC LINE RUNNING NS @ 75ML/HR, NO S/S OF INFILTRATION. NO SIGNIFICANT CHANGES NOTED DURING THIS SHIFT. BED LOCKED AND IN LOWEST POSITION. CALL LIGHT WITHIN REACH. WILL ENDORSE TO AM SHIFT.
[2021-01-19 06:51] LABS: CALCIUM, SERUM 8.8 mg/dL (8.5-10.1); CREATININE 2.7 mg/dL (0.6-1.3); MAGNESIUM 1.6 mg/dL (1.8-2.4); PHOSPHORUS 4.2 mg/dL (2.5-4.9); POTASSIUM 4.6 mmol/L (3.5-5.1)
[2021-01-19] MEDS: Magnesium 1GM/D5W 100ML PREMIX 100 ML IV SCH ×2 (08:19→09:22)
[2021-01-19] MEDS: NEOMY SULF/BACITRAC ZN/POLY 15 GM TUBE TP SCH (09:07)
[2021-01-19] MEDS: HEPARIN SODIUM, PORCINE 5000 UNITS/1 ML VIAL SQ SCH (09:12)
[2021-01-19] MEDS: HYDROCODONE/APAP 5/325MG TABLET PO PRN (09:14)
[2021-01-19] MEDS ORDERED: CEFT2VIA14 IV (09:55)
[2021-01-19] MEDS ORDERED: AMLO5TAB4 PO (09:55)
[2021-01-19 12:00] VITALS: BP 142/84
--- NOTE | 2021-01-19 14:41 | NUR ---
MS RN NOTE PATIENT DISCHARGED VIA AMBULANCE @ 1430. PATIENT STABLE, A/O X4. ON ROOM AIR - TOLERATING WELL. NO SOB NOTED. PATIENT HAS LEFT LEG/TOE WOUND WITH CLEMENT BANDAGE WRAP. PATIENT REFUSED DISCHARGE PHOTO - STATED HE "WANTED TO SLEEP AND IT FELT FINE AND HE WAS NOT IN ANY PAIN". RIGHT UPPER ARM PICC LINE LEFT IN TO CONTINUE ANTIBIOTICS FOR 4 WEEKS PER MD. EXITCARE AND EDUCATION GIVEN TO PATIENT. REPORT GIVEN TO NURSING DIRECTOR OF BUSINESS OPERATIONS @ [facility]. WRISTBAND REMOVED. PATIENT ACCOMPANIED TO LOBBY/AMBULANCE BY TWO EMT'S [facility].
== END 2021-01-19 14:32 | DRG 344 ==
LOC: ER 13:08 → MEDSG1 15:20
PROVIDERS: ADMIT Nurse Practitioner Acute Care; ATTEND Nurse Practitioner Acute Care
DX: E11.69 Type 2 diabetes mellitus with other specified complication (principal); M86.172 Other acute osteomyelitis, left ankle and foot; M86.162 Other acute osteomyelitis, left tibia and fibula; N17.0 Acute kidney failure with tubular necrosis; E11.22 Type 2 diabetes mellitus with diabetic chronic kidney disease; D63.8 Anemia in other chronic diseases classified elsewhere; S90.112A Contusion of left great toe without damage to nail, initial encounter; M86.672 Other chronic osteomyelitis, left ankle and foot; E44.1 Mild protein-calorie malnutrition; M19.072 Primary osteoarthritis, left ankle and foot; N18.9 Chronic kidney disease, unspecified; Z20.822 Contact with and (suspected) exposure to COVID-19; I12.9 Hypertensive chronic kidney disease with stage 1 through stage 4 chronic kidney disease, or unspecified chronic kidney disease; F10.129 Alcohol abuse with intoxication, unspecified; Z59.0 Homelessness; E87.2 Acidosis; Z91.19 Patient's noncompliance with other medical treatment and regimen; E88.09 Other disorders of plasma-protein metabolism, not elsewhere classified; Z98.890 Other specified postprocedural states; M86.662 Other chronic osteomyelitis, left tibia and fibula; X58.XXXA Exposure to other specified factors, initial encounter; Y93.9 Activity, unspecified; Y92.89 Other specified places as the place of occurrence of the external cause; Y99.9 Unspecified external cause status; Z68.21 Body mass index [BMI] 21.0-21.9, adult; Y90.9 Presence of alcohol in blood, level not specified; Z79.84 Long term (current) use of oral hypoglycemic drugs; B95.61 Methicillin susceptible Staphylococcus aureus infection as the cause of diseases classified elsewhere; E87.5 Hyperkalemia
CPT/HCPCS: 36415; 71045-TC; 73590-TC; 73630-TC; 80048-TC; 80061-TC; 80076-TC; 83605-TC; 83735-TC; 84100-TC; 84484-TC; 85025-TC; 85652-TC; 85730-TC; 86140-TC; 87040-TC; 87081-TC; 97112-TC; 97116-TC; 97530-TC; A6403; G0378; J0696; J1644; J3475; J7030; J7060; U0003

== ENCOUNTER 2021-04-18 12:04 | Emergency (ER) | payer MEDICAID ==
[~2021-04-18] VITALS: Ht 188 cm; Wt 78.0 kg
[~2021-04-18 12:04] MED LIST changes: +ACET-868 PO; +AMIN30LI2 PO; +AMLO5TAB4 PO; +ASCO-352 PO; -CEFA1VIA19 IJ; +CEFT2VIA14 IV; +DOCU-141 PO; -ERGO500014 PO; +ERGO500093 PO; +HYDR-3972 PO; -LISI20TA30 PO; +MAGN400O6 PO; -METF-440 PO; +MULT-447 PO; +SENN-261 PO; +SILV20CR13 TP
--- NOTE | 2021-04-18 12:17 | NUR ---
BIBRA39 STREETS, FRIENDS CALLED 911, ETOH, UNABLE TO STAND. BG 260 HULL INSPECTOR. THE PATIENT IS ALERT AND ORIENTED X2. ADMITS DRINKING ALCOHOL. DENIES SI/HI. IN ROOM AIR AND DENIES SOB. RESPIRATION REGULAR AND UNLABORED. DENIES PAIN. WILL CONTINUE TO MONITOR THE PATIENT.
--- NOTE | 2021-04-18 13:57 | NUR ---
PATIENT RESTLESS, ATTEMPTED TO WALK WITH UNSTEADY GAIT, PATIENTS RISK FOR FALL, ALMOST FELL TWICE, PATIENT IS NON-COMPLIANT WITH STAFF. RECEIVED ORDER FROM DR. RUIZ TO PLACE PATIENT BACK IN BED AND ADDED RESTRAINTS FOR SAFETY.
--- NOTE | 2021-04-18 14:17 | NUR ---
PATIENT CALM AND COOPERATIVE NOW, RESTRAINTS REMOVED. PATIENT KEPT COMFORTABLE IN BED.
--- NOTE | 2021-04-18 15:44 | NUR ---
PATIENT A/OX3, AMBULATORY WITH STEADY GAIT. NO DISTRESS NOTED. PATIENT WANTS TO LEAVE THE FACILITY. Patient given written and verbal discharge instructions. Patient verbalizes understanding of instructions. Patient is ambulatory with steady gait. Refuses offer of usp placement. Patient given list of available shelters in surrounding area.
[2021-04-18 15:47] VITALS: BP 104/55
== END 2021-04-18 15:47 | disposition home or self-care (01) ==
LOC: ER 12:10
DX: F10.129 Alcohol abuse with intoxication, unspecified (principal); R00.0 Tachycardia, unspecified; I10 Essential (primary) hypertension; E11.9 Type 2 diabetes mellitus without complications; F17.200 Nicotine dependence, unspecified, uncomplicated; Z60.2 Problems related to living alone; Z79.899 Other long term (current) drug therapy; Z79.4 Long term (current) use of insulin; Z59.0 Homelessness; Y90.9 Presence of alcohol in blood, level not specified

== ENCOUNTER 2021-11-12 20:19 | Inpatient (IN) | payer MEDICAID ==
[~2021-11-12] VITALS: Ht 170.2 cm; Wt 79.4 kg
[~2021-11-12 20:19] MED LIST changes: +IBUP-1955 PO; +LISI20TA30 PO; +METF-440 PO
--- NOTE | 2021-11-12 20:29 | NUR ---
EMT @ BEDSIDE FOR EKG
--- NOTE | 2021-11-12 20:29 | NUR ---
BIBRA39 FROM THE STREETS C/O 06/03 CP X2 HOURS. 324MG ASPIRIN AND 1 NITRO NS GIVEN COMPLIANCE PROFESSIONAL. "HASNT HAD A DRINK FOR TWO DAYS" PER EMS. PATIENT ALERT AND ORIENTED X3. AMBULATORY WITH ASSISTANCE, IN BED 15 ON MONITOR AND POX.
[2021-11-12 21:08] LABS: BASOPHILS % (AUTO) 0.6 % (0.0-2.0); EOSINOPHILS % (AUTO) 1.5 % (0.0-6.0); LYMPHOCYTES # (AUTO) 1.2 K/uL (0.8-4.8); LYMPHOCYTES % (AUTO) 34.6 % (20.0-44.0); MEAN CORPUSCULAR HGB CONC 35 g/dl (31.0-36.0); MEAN CORPUSCULAR VOLUME 100 fL (80-96); MONOCYTES # (AUTO) 0.3 K/uL (0.1-1.30); MONOCYTES % (AUTO) 10.4 % (2.0-12.0); NEUTROPHILS # (AUTO) 1.8 K/uL (1.8-8.9); NEUTROPHILS % (AUTO) 52.9 % (43.0-81.0); PLATELET COUNT (AUTO) 65 K/uL (150-450); WHITE BLOOD COUNT (AUTO) 3.3 K/uL (4.3-11.0)
--- NOTE | 2021-11-12 21:08 | NUR ---
URINE COLLECTED AND SENT TO LAB
--- NOTE | 2021-11-12 21:09 | NUR ---
BLOOD COLLECTED AND SENT TO LAB
--- NOTE | 2021-11-12 21:09 | NUR ---
COVID SWAB DONE AND SENT TO LAB
[2021-11-12 21:17] LABS: CALCIUM, SERUM 7.3 mg/dL (8.5-10.1); CARBON DIOXIDE 19 mmol/L (21-32); CHLORIDE 104 mmol/L (98-107); GLUCOSE 237 mg/dL (74-106); SODIUM SERUM 136 mmol/L (136-145); UREA NITROGEN, BLOOD 28 mg/dL (7-18)
[2021-11-12 21:32] LABS: RED BLOOD CELL COUNT(AUTO) 1.83 MIL/uL (4.5-6.0)
[2021-11-12 21:35] LABS: HEMATOCRIT 18 % (39-51); HEMOGLOBIN 6.3 g/dL (13.5-17.5)
[2021-11-12 21:44] LABS: BAND % (MANUAL) 1 % (0.0-5.0); LYMPHOCYTES % (MANUAL) 39 % (16-48); MONOCYTES % (MANUAL) 5 % (0-11.0); NEUTROPHILS % (MANUAL) 55 (42-76)
[2021-11-12 21:45] LABS: ALANINE AMINOTRANSFERASE 32 U/L (12-78); ALBUMIN 2.8 g/dL (3.4-5.0); ALKALINE PHOSPHATASE 293 U/L (46-116); ASPARTATE AMINOTRANSFERASE 71 U/L (15-37); BILIRUBIN,DIRECT 0.3 mg/dL (0.0-0.2); BILIRUBIN,TOTAL 0.6 mg/dL (0.2-1.0); CREATININE 2.1 mg/dL (0.6-1.3); TOTAL PROTEIN, SERUM 7.4 g/dL (6.4-8.2)
--- NOTE | 2021-11-12 21:52 | NUR ---
MRSA SWAB COLLECTED AND SENT TO LAB. PATIENT'S BELONGINGS LIST DONE.
--- NOTE | 2021-11-12 22:43 | NUR ---
REPORT GIVEN TO ANDREI
[2021-11-12] MEDS ORDERED: MAG HYDROX/AL HYDROX/SIMETH 30 ML UDC PO PRN (23:00)
[2021-11-12] MEDS ORDERED: Z GUARD REMEDY 4 OZ OINT TP PRN (23:00)
[2021-11-12] MEDS ORDERED: DEXTROSE 50%-WATER 50 ML DISP.SYRIN IV PRN (23:00)
[2021-11-12] MEDS: HEPARIN SODIUM, PORCINE 5000 UNITS/1 ML VIAL SQ SCH (23:00)
[2021-11-12] MEDS ORDERED: LABETALOL 20 MG/4 ML VIAL IV PRN (23:00)
[2021-11-12] MEDS ORDERED: MAGNESIUM HYDROXIDE 30 ML UDC PO PRN (23:00)
[2021-11-12] MEDS ORDERED: ONDANSETRON HCL/PF 4 MG/2 ML VIAL IVP PRN (23:00)
[2021-11-12] MEDS ORDERED: ACETAMINOPHEN 325 MG TABLET PO PRN (23:00)
[2021-11-12] MEDS ORDERED: hydrALAZINE HCL IV 20 MG VIAL IV PRN (23:00)
[2021-11-12 23:21] LABS: BILIRUBIN,URINE NEGATIVE (NEGATIVE); COLOR,URINE YELLOW (YELLOW); LEUKOCYTE ESTERASE ,URINE SMALL (NEGATIVE); NITRITE, URINE NEGATIVE (NEGATIVE); PROTEIN,URINE 30 mg/dl (NEGATIVE); UGLUCOSE NEGATIVE (NEGATIVE); UROBILINOGEN,URINE 0.2 EU/dL (0.2)
[2021-11-12] MEDS ORDERED: VANCOMYCIN HCL 1 GM in IV D5W 260 ML IV SCH (23:30)
[2021-11-12] MEDS ORDERED: CEFTRIAXONE 1 G VIAL IJ SCH (23:30)
[2021-11-12] MEDS ORDERED: PANTOPRAZOLE 40 MG VIAL IV SCH (23:30)
[2021-11-12] MEDS ORDERED: LORAZEPAM INJ 2 MG/ML VIAL IV PRN (23:30)
[2021-11-13] VITALS (8 sets, daily range): BP systolic 133–145; BP diastolic 77–96
[2021-11-13] MEDS ORDERED: IV NS 0.9% 1,000 ML IV ONE
--- NOTE | 2021-11-13 00:02 | NUR ---
PATIENT BEING TRANSFERRED TO [facility] VIA ACLS
--- NOTE | 2021-11-13 00:13 | NUR ---
WORKERS COMPENSATION CLAIMS ADJUSTER NOT- HEPARIN NON-ADMIN HEPARIN HELD PER MD ORDER. H&H LOW.
[2021-11-13] MEDS: BLOOD SUGAR DIAGNOSTIC 1 EACH STRIP VI SCH ×5 (00:25→22:25)
[2021-11-13] MEDS ORDERED: VANCOMYCIN 1 GM VIAL ONE (00:28)
[2021-11-13 00:37] LABS: BACTERIA,URINE Many /HPF (None Seen); RBC,URINE 0-2 /HPF (0-2)
[2021-11-13] MEDS ORDERED: CEFTRIAXONE 1 G in IV D5W 50 ML IV SCH (01:00)
[2021-11-13] MEDS: *INSULIN REGULAR(HUMULIN R)HUM 100 UNIT/ML VIAL SQ PRN ×3 (01:10→22:29)
--- NOTE | 2021-11-13 01:42 | NUR ---
ESCAPEMENT MATCHERGREENS PLANTER NOTES PATIENT BROUGHT UP @0004 AM IN THE UNIT VIA STRETCHER. PATIENT NOTED TO BE WEAK WITH HIS GAIT. NO S/S OF APPARENT DISTRESS ON ROOM AIR. PER PATIENT HE HAS A 10/10 CHEST PAIN BUT READING SR 86BPM ON THE MONITOR-- PATIENT SLEEPING AT THIS TIME AND NOT EXHIBITING ANY SYMPTOMS AND OR DISCOMFORT, NO INTERVENTION NEEDED AT THIS TIME. PATIENT WISHES TO BE FULL CODE AT THIS TIME. PER PATIENT HE LIVES AT A HOTEL AND FELT THAT HIS HEART POUNDING ON HIS WAY TO THE HOSPITAL TO GET TREATMENT FOR HIS LEG AT THE BUS STOP AND CALLED 911. PER PATIENT HE IS UP TO DATE WITH HIS VACCINES AND REPORT GETTING 3 DOSES OF MODERNA VACCINE. PATIENT STARTED ON NS BOLUS ORDERED RUNNING ON HIS R. ARM. NEW ID BAND ON PATIENT, BELONGINGS INVENTORIED AND SIGNED FOR AND CHECKED. SAFETY IN PLACE. WILL FOLLOW THROUGH DOCTORS ORDERS.
--- NOTE | 2021-11-13 01:49 | NUR ---
CLARIFIED ORDER FOR ROCEPHIN IM, PER DOCTOR THE ORDER IS IV-- ORDER CARRIED OUT. VERIFIED ORDER FOR BLOOD WELL, PER DOCTOR JENNIFER, PATIENT WAS SUPPOSED TO GET 1 UNIT OF BLOOD IN THE ER. CALLED LAB AND THEY ARE READYING THE BLOOD. WILL FOLLOW THROUGH ORDER AND OBTAIN CONSENT.
--- NOTE | 2021-11-13 01:54 | NUR ---
REASSESSMENT-- CHEST PAIN RELIEVED PER PATIENT.
--- NOTE | 2021-11-13 02:04 | NUR ---
FINANCIAL REPORTING DIRECTOR NOTE BLOOD CONSENT OBTAINED. CALLED LAB AGAIN AND JUST SPOKE TO DARIEN, PER HIM BLOOD IS NOT READY YET AND THEY WILL CALL ONCE IT'S READY.
--- NOTE | 2021-11-13 03:18 | NUR ---
FOOD ORDER EXPEDITER NOTE BLOOD TRANSFUSION STARTED AT THIS TIME. STARTED @60CC/HR. V/S FOLLOWS: 145/96, HR-91 BPM, RR-18, SATURATION 97% ON ROOM AIR. WILL MONITOR FOR ANY ADVERSE REACTION.
--- NOTE | 2021-11-13 03:36 | NUR ---
GAUGER CHIEF DELIVERY NOTE 15 MINUTES IN THE BLOOD TRANSFUSION. PATIENT REMAINS STABLE. V/S FOLLOWS: 141/77, HR-90, T-98.4, RR-18, AND SATURATION 99% ON ROOM AIR. NO TRANSFUSION REACTION NOTED. WILL CONT. TO MONITOR. RATE INCREASED TO 120 ML/HR.
--- NOTE | 2021-11-13 04:53 | NUR ---
BUNCHER HAND NOTE 1 HOUR INTO BLOOD TRANSFUSION, NO REACTION NOTED. INCREASING RATE TO 180 CC/HR. V/S FOLLOWS: 142/78, HR-95, T-97.6, RR-18, SATURATION 100% ROOM AIR. WILL CONTINUE TO MONITOR.
--- NOTE | 2021-11-13 05:31 | NUR ---
MARINE STEWARD NOTE BLOOD TRANSFUSION ENDED EXACTLY 0530 AM. NO TRANSFUSION RECTION NOTED, PATIENT REMAINS STABLE. LAST SET OF V/S FOLLOWS: 145/83, HR- 94, T- 98.8, RR-18, SATURATION 98% ON ROOM AIR WITH HOB FLAT. WILL RESUME TO IV NS TO FINISH BOLUS.
[2021-11-13] MEDS: INSULIN REGULAR, HUMAN 100 UNIT/ML 3 ML VIAL SQ PRN (06:54)
--- NOTE | 2021-11-13 07:30 | NUR ---
INCUBATOR TENDER OPENING NOTES RECEIVED PATIENT IN BED AWAKE. ALERT AND ORIENTED TIMES 3-4. NO PAIN NOTED. NO RESPIRATORY DISTRESS NOTED. BREATHING EVEN AND UNLABORED. NO DISTRESS NOTED. S/P OF THE BLOOD TRANSFUSION AT 0530 AM. TOLERATED WELL. IV ACCESS ON THE RFA G18 INTACT. ABLE TO AMBULATE TO BATHROOM. ON EXTERNAL INTERNATIONAL STUDENT ADVISOR ABLE TO MAKE NEEDS KNOWN. BED LOCKED IN THE LOWEST POSITION. CALL LIGHT AND TABLE IN REACH. WILL CONTINUE TO MONITOR.
[2021-11-13 07:40] LABS: ALBUMIN 2.6 g/dL (3.4-5.0); BILIRUBIN,TOTAL 0.5 mg/dL (0.2-1.0); CALCIUM, SERUM 7.5 mg/dL (8.5-10.1); CREATININE 1.9 mg/dL (0.6-1.3); MAGNESIUM 1.9 mg/dL (1.8-2.4); PHOSPHORUS 3.4 mg/dL (2.5-4.9); POTASSIUM 3.5 mmol/L (3.5-5.1)
[2021-11-13 07:42] LABS: BASOPHILS % (AUTO) 0.5 % (0.0-2.0); EOSINOPHILS % (AUTO) 1.4 % (0.0-6.0); LYMPHOCYTES # (AUTO) 0.6 K/uL (0.8-4.8); LYMPHOCYTES % (AUTO) 20.8 % (20.0-44.0); MEAN CORPUSCULAR HGB CONC 35 g/dl (31.0-36.0); MEAN CORPUSCULAR VOLUME 97 fL (80-96); MONOCYTES # (AUTO) 0.3 K/uL (0.1-1.30); NEUTROPHILS % (AUTO) 67.3 % (43.0-81.0)
--- NOTE | 2021-11-13 07:46 | NUR ---
MACHINE IRONER CLOSING NOTE report given to Ani for cont. of care.
[2021-11-13 07:47] LABS: RED BLOOD CELL COUNT(AUTO) 1.95 MIL/uL (4.5-6.0)
[2021-11-13 07:48] LABS: PLATELET COUNT (AUTO) 50 K/uL (150-450)
[2021-11-13 07:50] LABS: HEMATOCRIT 19 % (39-51); HEMOGLOBIN 6.6 g/dL (13.5-17.5)
--- NOTE | 2021-11-13 07:50 | NUR ---
RN NOTES CHELLE CALLED FROM LAB AND REPORT H/H LAB RESULTS AT 0750 AM.
[2021-11-13] MEDS ORDERED: PROP10TA68 PO (08:30)
[2021-11-13] MEDS ORDERED: GABA-532 PO (08:30)
[2021-11-13] MEDS ORDERED: PANT40TA49 PO (08:30)
[2021-11-13] MEDS ORDERED: AMLO-212 PO (08:30)
[2021-11-13] MEDS ORDERED: THIA100T88 PO (08:30)
[2021-11-13] MEDS ORDERED: FERR325T24 PO (08:30)
[2021-11-13] MEDS ORDERED: MULT-447 PO (08:30)
[2021-11-13] MEDS ORDERED: GLIP5TAB13 PO (08:30)
[2021-11-13] MEDS: LISINOPRIL (20MG) 20 MG TABLET PO SCH (09:32)
[2021-11-13] MEDS: PANTOPRAZOLE 40 MG VIAL IV SCH ×2 (09:33→16:59)
--- NOTE | 2021-11-13 09:47 | NUR ---
RN NOTES REPORT REPORT H/H LAB RESULTS TO DR. ÁLVARO CHAVEZ AT [id number] .
[2021-11-13] MEDS: HEPARIN SODIUM, PORCINE 5000 UNITS/1 ML VIAL SQ SCH ×2 (09:56→20:54)
[2021-11-13] MEDS: DAPTOMYCIN 500 MG in IV NS 0.9% 50 ML IV SCH (12:57)
[2021-11-13] MEDS ORDERED: CEFAZOLIN 1 GM VIAL IM SCH (13:00)
[2021-11-13] MEDS: CEFAZOLIN 2 GM in IV D5W 100 ML IV SCH ×2 (13:56→21:08)
[2021-11-13 14:02] LABS: HEMOGLOBIN 7.1 g/dL (13.5-17.5)
[2021-11-13] MEDS ORDERED: VANCOMYCIN 500 MG in IV D5W 100ml IV SCH (16:00)
--- NOTE | 2021-11-13 18:45 | NUR ---
DOUBLE CUT OFF SAW OPERATOR CLOSING NOTES PATIENT IN BED AWAKE. ALERT AND ORIENTED TIMES 3-4. NO PAIN NOTED. NO RESPIRATORY DISTRESS NOTED. BREATHING EVEN AND UNLABORED. NO DISTRESS NOTED. TOLERATED WELL. IV ACCESS ON THE RFA G18 INTACT. ABLE TO AMBULATE TO BATHROOM. 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 BED LOCKED IN THE LOWEST POSITION. CALL LIGHT AND TABLE IN REACH. WILL ENDORSE FOR KAT.
--- NOTE | 2021-11-13 19:32 | NUR ---
MACHINE CLOTH EXAMINER OPENING NOTES RECEIVED PATIENT IN BED AWAKE. A/O X3-4. ON 2LPM OF O2. NO SOB OR RESPIRATORY DISTRESS. ON EXTERNAL GASKET NOTCHER READING SR. IV ACCESS RFA 18 GAUGE, INTACT AND PATENT. SAFETY PRECAUTIONS IN PLACE. BED IN LOWEST LOCKED POSITION, HOB ELEVATED, SIDE RAILS UP X2, AND CALL LIGHT AND TABLE WITHIN REACH. WILL CONTINUE WITH PLAN OF CARE.
[2021-11-13] MEDS: METOPROLOL TARTRATE 25 MG TABLET PO SCH (20:54)
--- NOTE | 2021-11-13 20:54 | NUR ---
RN NOTE PT HAS HGB OF 7.1. NOTIFIED CUPOLA MELTING SUPERVISOR KEARA WITH NEW ORDER TO HOLD DOSE OF HEPARIN. DID NOT ADMINISTER DOSE OF HEPARIN.
--- NOTE | 2021-11-13 22:12 | NUR ---
RN NOTE LAB CALLED FOR HBG 7.0. INFORMED AUTOMAT CAR ATTENDANT DOUGHNUT ICER MACHINE KEARA WITH ORDER TO RECHECK H/H IN THE MORNING. ORDER NOTED AND CARRIED OUT. WILL CONTINUE WITH PLAN OF CARE.
[2021-11-13] MEDS: INSULIN GLARGINE, 100 UNIT/ML CARTRIDGE SQ SCH (22:30)
[2021-11-14] VITALS (9 sets, daily range): BP systolic 140–154; BP diastolic 73–87
[2021-11-14] MEDS: CEFAZOLIN 2 GM in IV D5W 100 ML IV SCH ×3 (05:33→21:05)
[2021-11-14 07:03] LABS: CALCIUM, SERUM 8.5 mg/dL (8.5-10.1); CREATININE 1.8 mg/dL (0.6-1.3); POTASSIUM 3.7 mmol/L (3.5-5.1)
[2021-11-14] MEDS: BLOOD SUGAR DIAGNOSTIC 1 EACH STRIP VI SCH ×4 (07:03→22:10)
--- NOTE | 2021-11-14 07:23 | NUR ---
VOCATIONAL TECHNICAL EDUCATION TEACHER CLOSING NOTES PATIENT IN BED AWAKE. A/O X3-4. ON 2LPM OF O2. NO SOB OR RESPIRATORY DISTRESS. ON EXTERNAL COPY SUPERVISOR READING SR. IV ACCESS RFA 18 GAUGE, INTACT AND PATENT. ALL NEEDS MET AT THIS TIME. SAFETY PRECAUTIONS IN PLACE AT ALL TIMES. BED IN LOWEST LOCKED POSITION, HOB ELEVATED, SIDE RAILS UP X2, AND CALL LIGHT AND TABLE WITHIN REACH. WILL ENDORSE TO ONCOMING SHIFT FOR KAT.
--- NOTE | 2021-11-14 07:25 | NUR ---
ANALYST BUSINESS ANALYSIS CLOSING NOTES RECEIVED PATIENT IN BED, AWAKE, A/O X4. VERBALLY RESPONSIVE. NO SIGNS OF ACUTE DISTRESS NOTED. ON ROOM AIR, NO SOB NOTED. BREATHING EVEN AND UNLABORED. NO C/O PAIN AT THIS TIME. WITH IV ACCESS ON RIGHT FOREARM, 18 G, INTACT AND PATENT. ON TELE MONITOR SHOWING SINUS RHYTHM @ 67. SAFETY MEASURES MAINTAINED. BED IN LOWEST LOCKED POSITION, SR UP X2, CALL LIGHT PLACED WITHIN EASY REACH. WILL CONTINUE TO MONITOR PATIENT.
[2021-11-14] MEDS: LISINOPRIL (20MG) 20 MG TABLET PO SCH (08:22)
[2021-11-14] MEDS: PANTOPRAZOLE 40 MG VIAL IV SCH ×2 (08:23→17:59)
[2021-11-14] MEDS: METOPROLOL TARTRATE 25 MG TABLET PO SCH ×2 (08:23→21:05)
[2021-11-14] MEDS: HEPARIN SODIUM, PORCINE 5000 UNITS/1 ML VIAL SQ SCH ×2 (08:27→21:00)
--- NOTE | 2021-11-14 08:53 | NUR ---
RN NOTES MD MADE AWARE REGARDING HGB RESULT OF 7.0 AND HCT 20. MAD AGVE ORDER TO TRANSFUSE 1 UNIT OF PRBC. ORDER CARRIED OUT.
[2021-11-14] MEDS: INSULIN REGULAR, HUMAN 100 UNIT/ML 3 ML VIAL SQ PRN ×2 (11:21→17:58)
[2021-11-14] MEDS: DAPTOMYCIN 500 MG in IV NS 0.9% 50 ML IV SCH (11:22)
--- NOTE | 2021-11-14 15:15 | NUR ---
RN NOTES BLOOD TRANSFUSION STARTED @60 CC/HR. VITAL SIGNS PRE BT: T 97.9, P 73, R 17, BP 149/77, SPO2 99% ON ROOM AIR. WILL MONITOR FOR A/R.
[2021-11-14 15:28] LABS: HEMOGLOBIN 7.5 g/dL (13.5-17.5)
--- NOTE | 2021-11-14 17:25 | NUR ---
RN NOTES BLOOD TRANSFUSION FINISHED. NO ADVERSE REACTION NOTED. VITAL SIGNS TAKEN, STABLE AND RECORDED.
--- NOTE | 2021-11-14 17:36 | NUR ---
RN NOTES S/P LEFT ANKLE JOINT ASPIRATION BY DR. SHARMA, PATIENT TOLERATED PROCEDURE WELL. ASPIRATE SENT FOR CULTURE.
[2021-11-14] MEDS: MORPHINE SULFATE INJ 2 MG/ML DISP.SYRIN IV PRN (18:07)
--- NOTE | 2021-11-14 18:48 | NUR ---
DISTRIBUTION ACCOUNTING CLERK CLOSING NOTES RECEIVED PATIENT IN BED, AWAKE, A/O X4. VERBALLY RESPONSIVE. NO SIGNS OF ACUTE DISTRESS NOTED. STABLE ON ROOM AIR, NO SOB NOTED. BREATHING EVEN AND UNLABORED. MORPHINE 2 MG IVP GIVEN FOR C/O LEFT FOOT PAIN. IV ACCESS ON LEFT FOREARM, 18 G, INTACT AND PATENT. ON TELE MONITOR SHOWING SINUS RHYTHM @ 78. SAFETY MEASURES MAINTAINED. BED IN LOWEST LOCKED POSITION, SR UP X2, CALL LIGHT PLACED WITHIN EASY REACH. WILL ENDORSE TO NEXT SHIFT.
--- NOTE | 2021-11-14 19:31 | NUR ---
AUTOMATIC CHIEF OPENING NOTES RECEIVED PATIENT IN BED AWAKE. A/O X3-4. ON 2LPM OF O2. NO SOB OR RESPIRATORY DISTRESS. ON EXTERNAL MANAGER INCOME TAX READING SR 79 BPM. IV ACCESS LFA 18 GAUGE, INTACT AND PATENT. NO COMPLAINTS OF PAIN OR DISCOMFORT AT THIS TIME. SAFETY PRECAUTIONS IN PLACE. BED IN LOWEST LOCKED POSITION, HOB ELEVATED, SIDE RAILS UP X2, AND CALL LIGHT AND TABLE WITHIN REACH. WILL CONTINUE WITH PLAN OF CARE.
--- NOTE | 2021-11-14 21:02 | NUR ---
RN NOTE HEARING IMPAIRED TEACHER KEARA ORDERED TO HOLD HEPARIN DUE TO LOW H/H. ORDER NOTED AND CARRIED OUT.
[2021-11-14 21:38] LABS: HEMOGLOBIN 8.1 g/dL (13.5-17.5)
[2021-11-14] MEDS: *INSULIN REGULAR(HUMULIN R)HUM 100 UNIT/ML VIAL SQ PRN (22:10)
--- NOTE | 2021-11-14 22:10 | NUR ---
RN NOTE PT REFUSED REGULAR INSULIN 2 UNITS. STATED " I WILL TAKE THE LONG ACTING ONE BUT NOT THE REGULAR". EXPLAINED THE RISKS OF HYPERGLYCEMIA. PT VERBALIZED UNDERSTANDING AND STILL REFUSED. WILL CONTINUE WITH PLAN OF CARE.
[2021-11-14] MEDS: INSULIN GLARGINE, 100 UNIT/ML CARTRIDGE SQ SCH (22:14)
[2021-11-15] VITALS: BP 136/77
[2021-11-15 04:00] VITALS: BP 132/67
[2021-11-15] MEDS: CEFAZOLIN 2 GM in IV D5W 100 ML IV SCH ×2 (05:08→17:55)
[2021-11-15] MEDS: BLOOD SUGAR DIAGNOSTIC 1 EACH STRIP VI SCH ×4 (06:31→21:51)
--- NOTE | 2021-11-15 06:41 | NUR ---
MARKETING MANAGER CLOSING NOTES PATIENT IN BED AWAKE. A/O X3-4. PT STABLE ON ROOM AIR, O2 SAT 98%. NO SOB OR S/S OF RESPIRATORY DISTRESS NOTED. ON EXTERNAL FOIL STAMP OPERATOR READING SR 60 BPM. IV ACCESS LFA 18 GAUGE, INTACT AND PATENT. NO COMPLAINTS OF PAIN OR DISCOMFORT AT THIS TIME. ALL NEEDS MET AT THIS TIME. SAFETY PRECAUTIONS IN PLACE AT ALL TIMES. BED IN LOWEST LOCKED POSITION, HOB ELEVATED, SIDE RAILS UP X2, AND CALL LIGHT AND TABLE WITHIN REACH. WILL ENDORSE TO ONCOMING SHIFT FOR KAT.
[2021-11-15 07:23] LABS: CALCIUM, SERUM 8.1 mg/dL (8.5-10.1); POTASSIUM 3.8 mmol/L (3.5-5.1)
--- NOTE | 2021-11-15 07:30 | NUR ---
RN NOTE ON TELE MONITOR CURRENTLY READING SINUS RHYTHM AT 78BPM.
--- NOTE | 2021-11-15 07:30 | NUR ---
CALL CENTER TEAM LEADER OPENING NOTES RECEIVED PATIENT ON BED RESTING AND A/O X4. ON ROOM AIR TOLERATING WELL. NO SOB NOTED. NOT IN DISTRESS. WITH NO COMPLAINTS OF PAIN OR DISCOMFORT AT THIS TIME. WITH IV ACCESS AT LEFT FOREARM G18 SALINE LOCKED, PATENT AND INTACT. SAFETY MEASURES IN PLACED. CALL LIGHT WITHIN REACH. BED ON LOWEST LOCKED POSITION, SIDE RAILS UP X2. WILL CONTINUE TO MONITOR.
[2021-11-15 08:00] VITALS: BP 135/77
[2021-11-15] MEDS: HEPARIN SODIUM, PORCINE 5000 UNITS/1 ML VIAL SQ SCH ×2 (09:00→21:00)
[2021-11-15] MEDS: PANTOPRAZOLE 40 MG VIAL IV SCH ×2 (10:02→16:05)
[2021-11-15] MEDS: METOPROLOL TARTRATE 25 MG TABLET PO SCH ×2 (10:03→21:12)
[2021-11-15] MEDS: LISINOPRIL (20MG) 20 MG TABLET PO SCH (10:03)
[2021-11-15] MEDS: IV NS 0.9% 1,000 ML IV SCH ×2 (10:10→17:55)
[2021-11-15 12:00] VITALS: BP 136/71
[2021-11-15] MEDS: INSULIN REGULAR, HUMAN 100 UNIT/ML 3 ML VIAL SQ PRN ×2 (13:13→18:17)
[2021-11-15] MEDS: GABAPENTIN 300 MG CAPSULE PO SCH ×2 (13:14→16:05)
[2021-11-15 13:49] LABS: HEMOGLOBIN 8.1 g/dL (13.5-17.5)
[2021-11-15 16:00] VITALS: BP 136/74
[2021-11-15] MEDS: FERROUS SULFATE (325 MG) 325 MG/TAB TABLET PO SCH (16:05)
[2021-11-15] MEDS: PROPRANOLOL HCL 10 MG TABLET PO SCH (16:07)
[2021-11-15] MEDS: MORPHINE SULFATE INJ 2 MG/ML DISP.SYRIN IV PRN (16:17)
--- NOTE | 2021-11-15 18:55 | NUR ---
SHIPPING SPECIALIST CLOSING NOTES PATIENT ON BED RESTING AND A/O X4. ON ROOM AIR TOLERATING WELL. NO SOB NOTED. NOT IN DISTRESS. WITH NO COMPLAINTS OF PAIN OR DISCOMFORT AT THIS TIME. WITH IV ACCESS AT LEFT FOREARM G18 SALINE LOCKED, PATENT AND INTACT. ON TELE MONITOR CURRENTLY READING SINUS RHYTHM AT 76BPM. DUE MEDS GIVEN. SAFETY MEASURES IN PLACED. CALL LIGHT WITHIN REACH. BED ON LOWEST LOCKED POSITION, SIDE RAILS UP X2. WILL ENDORSE TO NEXT SHIFT FOR KAT.
[2021-11-15 20:00] VITALS: BP 131/72
[2021-11-15 21:38] LABS: HEMOGLOBIN 7.9 g/dL (13.5-17.5)
[2021-11-15] MEDS: INSULIN GLARGINE, 100 UNIT/ML CARTRIDGE SQ SCH (21:51)
--- NOTE | 2021-11-15 23:00 | NUR ---
Patient requested only long acting insulin before bed as he will not be eating overnight. BS has been WNL past few mornings.
[2021-11-16] VITALS: BP 124/68
[2021-11-16] MEDS: IV NS 0.9% 1,000 ML IV SCH (02:22)
[2021-11-16 04:00] VITALS: BP 115/65
[2021-11-16] MEDS: CEFAZOLIN 2 GM in IV D5W 100 ML IV SCH ×2 (05:27→18:22)
--- NOTE | 2021-11-16 06:14 | NUR ---
Patient is currently A&Ox4, denies chest pain overnight. SB/SR on the monitor 50s/60s. Dressings to BLE c/d/i. LFA #18G infusing NS at 125cc/hr -intact and patent. No s/s of hypo or hyperglycemic reactions. Currently awake sitting in bed with no signs of distress.
[2021-11-16] MEDS: INSULIN REGULAR, HUMAN 100 UNIT/ML 3 ML VIAL SQ PRN ×3 (06:38→17:47)
[2021-11-16 06:45] LABS: HEMOGLOBIN 8.1 g/dL (13.5-17.5)
[2021-11-16] MEDS: BLOOD SUGAR DIAGNOSTIC 1 EACH STRIP VI SCH ×4 (07:00→21:26)
--- NOTE | 2021-11-16 07:20 | NUR ---
OPTOMETRY DOCTOR OPENING NOTES RECEIVED PATEINT IN BED RESTING, A/O X4. ON ROOM AIR TOLERATING WELL WITH NO S/SX OF RESPIRATORY DISTRESS NOTED. NO COMPLAINT OF PAIN VERBALIZED AT THIS TIME. LFA G#18 INTACT AND PATENT WITH NS RUNNING @ 125ML/HR. ON TELE MONITOR CURRENTLY READING SINUS VLADIMIR 57 BPM AT THIS TIME. SAFETY MEASURES IN PLACE: BED IN LOWEST POSITION, WHEELS LOCKED, SIDE RAILS UP X2, CALL LIGHT WITHIN REACH. WILL CONTINUE TO HOLD ANTICOAGULATIONS PER DR BALL. WILL CONTINUE PLAN OF CARE
[2021-11-16] MEDS ORDERED: PANTOPRAZOLE 40 MG TABLET.DR PO SCH (07:30)
[2021-11-16 08:12] VITALS: BP 128/76
[2021-11-16] MEDS: PANTOPRAZOLE 40 MG VIAL IV SCH ×2 (08:55→17:00)
[2021-11-16] MEDS: GABAPENTIN 300 MG CAPSULE PO SCH ×3 (08:56→17:08)
[2021-11-16] MEDS: MULTIVIT W/MINERALS 1 TAB TABLET PO SCH (08:56)
[2021-11-16] MEDS: THIAMINE HCL 100 MG TABLET PO SCH (08:56)
[2021-11-16] MEDS: METOPROLOL TARTRATE 25 MG TABLET PO SCH ×2 (08:56→21:23)
[2021-11-16] MEDS: FERROUS SULFATE (325 MG) 325 MG/TAB TABLET PO SCH ×2 (08:56→17:01)
[2021-11-16] MEDS: AMLODIPINE BESYLATE 5 MG TABLET PO SCH (08:56)
[2021-11-16] MEDS: PROPRANOLOL HCL 10 MG TABLET PO SCH ×2 (08:56→17:11)
[2021-11-16] MEDS: HEPARIN SODIUM, PORCINE 5000 UNITS/1 ML VIAL SQ SCH ×2 (08:57→21:00)
[2021-11-16] MEDS: LISINOPRIL (20MG) 20 MG TABLET PO SCH (08:57)
--- NOTE | 2021-11-16 11:00 | NUR ---
RN NOTES PER DR. LOPEZ, PATIENT IS CLEARED BY HOOK PULLER TO HAVE CTCA EXAM WITH A CREATININE LEVEL OF 2.0
[2021-11-16] MEDS ORDERED: NITROGLYCERIN 0.4 MG/TAB BOTTLE SL ONE (11:30)
--- NOTE | 2021-11-16 11:50 | NUR ---
RN NOTES NEW IV ACCESS INSERTED LAC #18. PATIENT TRANSFERRED DOWN TO SUPERVISOR CIGAR PROCESSING FOR CTCA EXAM.
[2021-11-16 12:04] VITALS: BP 130/79
[2021-11-16] MEDS ORDERED: IOHEXOL-350 100 ML VIAL IV ONE (12:09)
[2021-11-16] MEDS ORDERED: IV NS 0.9% 250 ML IV ONE (12:09)
[2021-11-16] MEDS ORDERED: CT SWABBABLE VALVE TRANS SET 1 EA INFUS.SET MC ONE (12:10)
[2021-11-16] MEDS ORDERED: NITROGLYCERIN 0.4 MG/TAB BOTTLE ONE (12:10)
[2021-11-16] MEDS ORDERED: METOPROLOL TARTRATE INJ 5 MG/5 ML AMPUL ONE (12:10)
[2021-11-16] MEDS: METOPROLOL TARTRATE INJ 5 MG/5 ML AMPUL IVP PRN ×2 (12:15→12:20)
--- NOTE | 2021-11-16 12:25 | NUR ---
CTA PROCEDURE WELL TOLERATED BY THE PT. AAOX4, NOT IN RESPIRATORY DISTRESS,V/S STABLE. KEPT RESTED AND COMFORTABLE. REPORT GIVEN TO TESHA PIKE FOR KAT.
--- NOTE | 2021-11-16 12:35 | NUR ---
RN NOTES CTCA EXAM COMPLETE. PATIENT BACK IN ROOM. RUNNING NS @125 ML/HR POST EXAM PER DR. JOHN.
[2021-11-16 13:06] LABS: HEMOGLOBIN 7.7 g/dL (13.5-17.5)
[2021-11-16 14:46] LABS: CALCIUM, SERUM 8.5 mg/dL (8.5-10.1); POTASSIUM 3.9 mmol/L (3.5-5.1)
[2021-11-16 15:51] VITALS: BP 140/88
--- NOTE | 2021-11-16 18:00 | NUR ---
RN NOTES PATIENT IS NO LONGER ON IV FLUIDS.
--- NOTE | 2021-11-16 18:46 | NUR ---
CAREER DEVELOPMENT DIRECTOR CLOSING NOTES PATIENT IN BED RESTING, A/O X4. ON ROOM AIR TOLERATING WELL WITH NO S/SX OF RESPIRATORY DISTRESS THROUGH OUT SHIFT. LFA G#18 INTACT AND PATENT, LAC G#18 INTACT AND PATENT. ON TELE MONITOR CURRENTLY READING SINUS VLADIMIR 57 BPM AT THIS TIME. SAFETY MEASURES IN PLACE: BED IN LOWEST POSITION, WHEELS LOCKED, SIDE RAILS UP X2, CALL LIGHT WITHIN REACH. CTCA COMPLETE TODAY. ALL ORDERS CARRIED OUT AND NEEDS MET. WILL CONTINUE TO HOLD ANTICOAGULATIONS PER DR BALL. WILL ENDORSE TO ELECTION WATCHER NURSE FOR KAT
--- NOTE | 2021-11-16 19:42 | NUR ---
RN OPENING NOTE RECEIVED PATIENT IN BED, A/OX4. NO S/S OF APPARENT DISTRESS ON ROOM AIR. DENIES PAIN AT THIS TIME. TELE MONITOR READING SR 67. NO FLUIDS RUNNING AT THIS TIME. SAFETY IN PLACE. WILL CONTINUE WITH ANANTH OF CARE FOR PATIENT.
[2021-11-16 20:00] VITALS: BP 127/73
[2021-11-16] MEDS: INSULIN GLARGINE, 100 UNIT/ML CARTRIDGE SQ SCH (21:29)
--- NOTE | 2021-11-16 21:30 | NUR ---
lane n[address]. Blood sugar 123 tonight.
[2021-11-16] MEDS: *INSULIN REGULAR(HUMULIN R)HUM 100 UNIT/ML VIAL SQ PRN (21:31)
[2021-11-16 21:49] LABS: HEMOGLOBIN 8.2 g/dL (13.5-17.5)
[2021-11-17] VITALS: BP 108/63
[2021-11-17 04:00] VITALS: BP 124/69
[2021-11-17] MEDS: CEFAZOLIN 2 GM in IV D5W 100 ML IV SCH ×2 (06:03→17:22)
[2021-11-17] MEDS: BLOOD SUGAR DIAGNOSTIC 1 EACH STRIP VI SCH ×4 (06:34→22:07)
[2021-11-17] MEDS: INSULIN REGULAR, HUMAN 100 UNIT/ML 3 ML VIAL SQ PRN ×3 (06:37→16:50)
--- NOTE | 2021-11-17 06:41 | NUR ---
RN NOTE TALKED TO THE PATIENT FOR HE LOOKS LIKE HE IS BOTHERED WITH SOMETHING, ASKED PATIENT IF SOMETHING IS CONCERNING HIM THAT MAYBE I CAN HELP WITH. PER PATIENT CASE MANAGEMENT HAS NOT SEEM HIM YET AND HE HAS BEEN CALLING FOR 3 DAYS NOW. PER PATIENT "I DO NOT WANT TO LOSE MY PLACE". WILL ENDORSED TO CHARGE NURSE AND AM NURSE TO FOLLOW UP WITH CASE MANAGEMENT.
[2021-11-17 07:21] LABS: BASOPHILS % (AUTO) 0.5 % (0.0-2.0); EOSINOPHILS % (AUTO) 2.1 % (0.0-6.0); HEMATOCRIT 24 % (39-51); HEMOGLOBIN 8.1 g/dL (13.5-17.5); LYMPHOCYTES # (AUTO) 0.8 K/uL (0.8-4.8); MEAN CORPUSCULAR HGB CONC 34 g/dl (31.0-36.0); MEAN CORPUSCULAR VOLUME 98 fL (80-96); MONOCYTES # (AUTO) 0.5 K/uL (0.1-1.30); MONOCYTES % (AUTO) 13.7 % (2.0-12.0); NEUTROPHILS # (AUTO) 2.5 K/uL (1.8-8.9); NEUTROPHILS % (AUTO) 63.7 % (43.0-81.0); PLATELET COUNT (AUTO) 71 K/uL (150-450); RED BLOOD CELL COUNT(AUTO) 2.43 MIL/uL (4.5-6.0)
--- NOTE | 2021-11-17 07:21 | NUR ---
MAINTENANCE PLANNING CLERK CLOSING NEEDS ATTENDED. REPORT GIVEN TO MARCO ANTONIO FOR CONTINUITY OF CARE.
--- NOTE | 2021-11-17 07:22 | NUR ---
RN OPENING NOTES Patient seen comfortably lying in bed, no apparent distress noted, respirations even and unlabored, no SOB, denies any pain or discomfort at this time, no grimacing. Call light left within reach, safety precautions in place, brakes locked, side rails up X 2, will monitor closely for any changes.
[2021-11-17 08:00] VITALS: BP 144/77
[2021-11-17] MEDS: GABAPENTIN 300 MG CAPSULE PO SCH ×3 (08:35→16:49)
[2021-11-17] MEDS: FERROUS SULFATE (325 MG) 325 MG/TAB TABLET PO SCH ×2 (08:35→16:49)
[2021-11-17] MEDS: THIAMINE HCL 100 MG TABLET PO SCH (08:35)
[2021-11-17] MEDS: PANTOPRAZOLE 40 MG VIAL IV SCH (08:35)
[2021-11-17] MEDS: MULTIVIT W/MINERALS 1 TAB TABLET PO SCH (08:35)
[2021-11-17] MEDS: AMLODIPINE BESYLATE 5 MG TABLET PO SCH (08:36)
[2021-11-17] MEDS: LISINOPRIL (20MG) 20 MG TABLET PO SCH (08:36)
[2021-11-17] MEDS: PROPRANOLOL HCL 10 MG TABLET PO SCH ×2 (08:36→16:49)
[2021-11-17] MEDS: METOPROLOL TARTRATE 25 MG TABLET PO SCH ×2 (08:36→22:00)
[2021-11-17] MEDS: HEPARIN SODIUM, PORCINE 5000 UNITS/1 ML VIAL SQ SCH ×2 (08:37→22:06)
[2021-11-17 11:37] LABS: ALANINE AMINOTRANSFERASE 22 U/L (12-78); ALBUMIN 2.6 g/dL (3.4-5.0); ASPARTATE AMINOTRANSFERASE 46 U/L (15-37); BILIRUBIN,TOTAL 0.4 mg/dL (0.2-1.0); CALCIUM, SERUM 8.6 mg/dL (8.5-10.1); CARBON DIOXIDE 21 mmol/L (21-32); CHLORIDE 107 mmol/L (98-107); GLUCOSE 175 mg/dL (74-106); POTASSIUM 4.1 mmol/L (3.5-5.1); SODIUM SERUM 138 mmol/L (136-145); TOTAL PROTEIN, SERUM 6.8 g/dL (6.4-8.2); UREA NITROGEN, BLOOD 32 mg/dL (7-18)
[2021-11-17 12:00] VITALS: BP 131/76
[2021-11-17 16:00] VITALS: BP 122/76
[2021-11-17] MEDS: PANTOPRAZOLE 40 MG TABLET.DR PO SCH (16:49)
--- NOTE | 2021-11-17 18:26 | NUR ---
RN CLOSING NOTES Patient lying in bed, no SOB, respirations even and unlabored, no apparent distress noted, denies any pain or discomfort. All due medications given per MD order, tolerating well. No s/s of hypo or hyperglycemia, no tremors, no change in level of consciousness, insulin given per sliding scale as needed per MD order. All needs attended, kept clean and dry, call light left within reach, safety precautions in place, frequent visual check rendered, brakes locked, side rails up X 2, will endorse to next shift for continuity of care.
[2021-11-17 20:00] VITALS: BP 129/71
--- NOTE | 2021-11-17 20:08 | NUR ---
MS/TELE/RN RECEIVED PATIENT IN BED AWAKE, ALERT ORIENTED, COMFORTABLE, NO CC/O PAIN, NO DISTRESS NOTED, CALL LIGHT IN REACH, NEEDS ATTENDED, WILL MONITOR.
[2021-11-17] MEDS: INSULIN GLARGINE, 100 UNIT/ML CARTRIDGE SQ SCH (22:02)
[2021-11-17] MEDS: *INSULIN REGULAR(HUMULIN R)HUM 100 UNIT/ML VIAL SQ PRN (22:07)
--- NOTE | 2021-11-17 22:17 | NUR ---
MS/BEVERLY/TESHA 8.09/17, PER DIXIE ZAYAS, OK TO GIVE HEPARIN FOR LONG THERE IS NO BLEEDING. NO BLEEDING NOTED, HEPARIN WAS ADMINISTERED.
--- NOTE | 2021-11-17 22:19 | NUR ---
MS/TELE/RN SNACK WAS GIVEN.
[2021-11-18] VITALS: BP 115/61
[2021-11-18 04:00] VITALS: BP 139/76
[2021-11-18] MEDS: CEFAZOLIN 2 GM in IV D5W 100 ML IV SCH ×2 (05:47→17:48)
[2021-11-18] MEDS: INSULIN REGULAR, HUMAN 100 UNIT/ML 3 ML VIAL SQ PRN ×3 (06:23→17:05)
[2021-11-18] MEDS: BLOOD SUGAR DIAGNOSTIC 1 EACH STRIP VI SCH ×4 (06:27→21:58)
[2021-11-18 06:29] LABS: BASOPHILS % (AUTO) 0.6 % (0.0-2.0); EOSINOPHILS % (AUTO) 2.3 % (0.0-6.0); HEMATOCRIT 25 % (39-51); HEMOGLOBIN 8.7 g/dL (13.5-17.5); LYMPHOCYTES % (AUTO) 25.7 % (20.0-44.0); MEAN CORPUSCULAR HGB CONC 34 g/dl (31.0-36.0); MEAN CORPUSCULAR VOLUME 99 fL (80-96); MONOCYTES # (AUTO) 0.6 K/uL (0.1-1.30); MONOCYTES % (AUTO) 14.9 % (2.0-12.0); NEUTROPHILS # (AUTO) 2.2 K/uL (1.8-8.9); NEUTROPHILS % (AUTO) 56.5 % (43.0-81.0); PLATELET COUNT (AUTO) 76 K/uL (150-450); RED BLOOD CELL COUNT(AUTO) 2.56 MIL/uL (4.5-6.0); WHITE BLOOD COUNT (AUTO) 3.9 K/uL (4.3-11.0)
--- NOTE | 2021-11-18 06:44 | NUR ---
MS/TELE/RN PATIENT IS AWAKE, ALERT, ORIENTED, NO CHANGE IN CONDITION, ALL NEEDS ATTENDED AT THIS TIME, CALL LIGHT IN REACH, WILL CONTINUE TO MONITOR.
--- NOTE | 2021-11-18 07:17 | NUR ---
AUTO BODY CUSTOMIZER OPENING NOTES RECEIVED PATIENT IN BED RESTING, A/O X4. PATIENT IS BRERATHING EVENLY AND NONLABORED ON ROOM AIR TOLERATING WELL WITH NO S/SX OF RESPIRATORY DISTRESS NOTED. NO COMPLAINT OF PAIN VERBALIZED AT THIS TIME. LFA G#18 INTACT AND PATENT. ON TELE MONITOR CURRENTLY. SAFETY MEASURES IN PLACE: BED IN LOWEST POSITION, WHEELS LOCKED, SIDE RAILS UP X2, CALL LIGHT WITHIN REACH. WILL CONTINUE TO MONITOR
[2021-11-18 07:22] LABS: ALBUMIN 2.7 g/dL (3.4-5.0); BILIRUBIN,TOTAL 0.4 mg/dL (0.2-1.0); CALCIUM, SERUM 8.8 mg/dL (8.5-10.1); CREATININE 2.1 mg/dL (0.6-1.3); POTASSIUM 3.9 mmol/L (3.5-5.1); TOTAL PROTEIN, SERUM 7.3 g/dL (6.4-8.2)
[2021-11-18] MEDS: HEPARIN SODIUM, PORCINE 5000 UNITS/1 ML VIAL SQ SCH ×2 (08:03→08:35)
[2021-11-18] MEDS: FERROUS SULFATE (325 MG) 325 MG/TAB TABLET PO SCH ×2 (08:30→16:49)
[2021-11-18] MEDS: METOPROLOL TARTRATE 25 MG TABLET PO SCH ×2 (08:31→20:31)
[2021-11-18] MEDS: MULTIVIT W/MINERALS 1 TAB TABLET PO SCH (08:31)
[2021-11-18] MEDS: LISINOPRIL (20MG) 20 MG TABLET PO SCH (08:32)
[2021-11-18] MEDS: THIAMINE HCL 100 MG TABLET PO SCH (08:33)
[2021-11-18] MEDS: PROPRANOLOL HCL 10 MG TABLET PO SCH ×2 (08:33→16:49)
[2021-11-18] MEDS: GABAPENTIN 300 MG CAPSULE PO SCH ×3 (08:33→16:49)
[2021-11-18] MEDS: PANTOPRAZOLE 40 MG TABLET.DR PO SCH ×2 (08:33→16:48)
[2021-11-18] MEDS: AMLODIPINE BESYLATE 5 MG TABLET PO SCH (08:36)
[2021-11-18] MEDS: INSULIN GLARGINE, 100 UNIT/ML CARTRIDGE SQ SCH ×2 (10:02→17:40)
[2021-11-18 16:00] VITALS: BP 144/83
--- NOTE | 2021-11-18 18:43 | NUR ---
HIGHWAY PATROL OFFICER CLOSING NOTES PT IN AOX4.ON ROOM AIR MIKAYLA,WELL NO SIGN SOB/ RESPIRATORY DISTRESS NOTED. ON EXTERNAL NET FISHER READING SR 60 BPM. IV ACCESS LFA 18 GAUGE, INTACT AND PATENT. NO COMPLAINTS OF PAIN OR DISCOMFORT AT THIS TIME. ALL NEEDS MET.SAFETY PRECAUTIONS IN PLACE AT ALL TIMES. BED IN LOWEST LOCKED POSITION, CALL LIGHT WITHIN REACH.WILL ENDORSE TO ONCOMING SHIFT.
--- NOTE | 2021-11-18 19:34 | NUR ---
RN OPENING NOTES RECEIVED PT SITTING IN BED, ASLEEP. AOx4, ABLE TO MAKE NEEDS KNOWN. ON RA AND TOLERATING WELL. NO SOB NOTED. NO S/SX OF RESPIRATORY DISTRESS NOTED. ON TELE MONITOR DETECTS SR. IV ACCESS IN LAC #18G AMD ;FA #18. IV IS INTACT,PATENT, AND FLUSHING WELL. SAFETY PRECAUTIONS IN PLACE: BED IN LOWEST, LOCKED POSITION, SIDERAILS UPx2, AND BRAKES ON. TABLE AND CALL LIGHT WITHIN REACH. WILL CONTINUE TO MONITOR.
[2021-11-18 20:00] VITALS: BP 114/58
[2021-11-18] MEDS: *INSULIN REGULAR(HUMULIN R)HUM 100 UNIT/ML VIAL SQ PRN (22:00)
[2021-11-19] VITALS: BP 106/57
[2021-11-19 04:00] VITALS: BP 127/71
[2021-11-19] MEDS: CEFAZOLIN 2 GM in IV D5W 100 ML IV SCH ×2 (05:01→18:51)
[2021-11-19] MEDS: BLOOD SUGAR DIAGNOSTIC 1 EACH STRIP VI SCH ×4 (06:30→21:23)
[2021-11-19] MEDS: INSULIN REGULAR, HUMAN 100 UNIT/ML 3 ML VIAL SQ PRN ×2 (06:30→17:43)
--- NOTE | 2021-11-19 06:45 | NUR ---
RN CLOSING NOTES PT LAYING IN BED, ASLEEP, AWAKENS TO VERBAL STIMULI. AOx4, ABLE TO MAKE NEEDS KNOWN. ON RA AND TOLERATING WELL. NO SOB NOTED. NO S/SX OF RESPIRATORY DISTRESS NOTED. ON TELE MONITOR DETECTS SR WITH RATE OF 60.. IV ACCESS IN LAC #18G AND LFA #18. IV IS INTACT,PATENT, AND FLUSHING WELL. ALL NEEDS MET. PT KEPT CLEAN AND DRY. SAFETY PRECAUTIONS IN PLACE: BED IN LOWEST, LOCKED POSITION, SIDERAILS UPx2, AND BRAKES ON. TABLE AND CALL LIGHT WITHIN REACH. WILL ENDORSE TO ONCOMING SHIFT FOR KAT.
[2021-11-19 06:56] LABS: BASOPHILS % (AUTO) 0.9 % (0.0-2.0); EOSINOPHILS % (AUTO) 1.8 % (0.0-6.0); HEMATOCRIT 27 % (39-51); LYMPHOCYTES # (AUTO) 0.9 K/uL (0.8-4.8); LYMPHOCYTES % (AUTO) 23.5 % (20.0-44.0); MEAN CORPUSCULAR HGB CONC 34 g/dl (31.0-36.0); MEAN CORPUSCULAR VOLUME 99 fL (80-96); MONOCYTES # (AUTO) 0.6 K/uL (0.1-1.30); MONOCYTES % (AUTO) 14.8 % (2.0-12.0); NEUTROPHILS # (AUTO) 2.3 K/uL (1.8-8.9); PLATELET COUNT (AUTO) 82 K/uL (150-450); RED BLOOD CELL COUNT(AUTO) 2.69 MIL/uL (4.5-6.0); WHITE BLOOD COUNT (AUTO) 3.9 K/uL (4.3-11.0)
[2021-11-19 07:14] LABS: ALBUMIN 2.8 g/dL (3.4-5.0); BILIRUBIN,TOTAL 0.4 mg/dL (0.2-1.0); CALCIUM, SERUM 9.5 mg/dL (8.5-10.1); CREATININE 2.3 mg/dL (0.6-1.3); POTASSIUM 4.2 mmol/L (3.5-5.1); TOTAL PROTEIN, SERUM 7.4 g/dL (6.4-8.2)
--- NOTE | 2021-11-19 07:18 | NUR ---
REAL ESTATE VALUER OPENING NOTES RECEIVED PATIENT ON BED ASLEEP. EASY TO WAKE UP, ALERT/ ORIENTED x4. ABLE TO MAKE NEEDS KNOWN. PATIENT ON ROOM AIR WITH EQUAL AND UNLABORED BREATHING. WITH LEFT FOREARM G 18 AND LEFT AC G 18 BOTH ON SALINE LOCK, PATENT AND INTACT. WITH SEVERAL SKIN ISSUES BUT REFUSED TO BE CHECKED AT THIS TIME. COMFORT MEASURES PROVIDED. WITH SAFETY PRECAUTIONS IN PLACE, WITH BED IN LOWEST, LOCKED POSITION, SIDERAILS UPx2, TABLE AND CALL LIGHT WITHIN REACH. WILL CONTINUE TO MONITOR.
[2021-11-19 08:00] VITALS: BP 131/76
[2021-11-19] MEDS: PROPRANOLOL HCL 10 MG TABLET PO SCH ×2 (08:42→17:35)
[2021-11-19] MEDS: FERROUS SULFATE (325 MG) 325 MG/TAB TABLET PO SCH ×2 (08:42→17:34)
[2021-11-19] MEDS: METOPROLOL TARTRATE 25 MG TABLET PO SCH ×2 (08:43→21:17)
[2021-11-19] MEDS: AMLODIPINE BESYLATE 5 MG TABLET PO SCH (08:43)
[2021-11-19] MEDS: GABAPENTIN 300 MG CAPSULE PO SCH ×3 (08:43→17:34)
[2021-11-19] MEDS: MULTIVIT W/MINERALS 1 TAB TABLET PO SCH (08:44)
[2021-11-19] MEDS: LISINOPRIL (20MG) 20 MG TABLET PO SCH (08:44)
[2021-11-19] MEDS: THIAMINE HCL 100 MG TABLET PO SCH (08:44)
[2021-11-19] MEDS: PANTOPRAZOLE 40 MG TABLET.DR PO SCH ×2 (08:44→17:34)
[2021-11-19] MEDS: INSULIN GLARGINE, 100 UNIT/ML CARTRIDGE SQ SCH ×2 (08:49→17:42)
[2021-11-19] MEDS: HEPARIN SODIUM, PORCINE 5000 UNITS/1 ML VIAL SQ SCH ×2 (09:00→20:39)
[2021-11-19] MEDS ORDERED: METO25TA20 PO (09:28)
[2021-11-19] MEDS ORDERED: INSU100V7 SQ (09:28)
--- NOTE | 2021-11-19 10:30 | NUR ---
CONSTRUCTION SCHEDULER NOTE SEEN BY DR. RODRIGUEZ. WILL CONTINUE TO MONITOR PATIENT.
[2021-11-19 16:00] VITALS: BP 147/82
--- NOTE | 2021-11-19 18:56 | NUR ---
HOTEL FRONT OFFICE MANAGER CLOSING NOTES PATIENT ON BED ALERT/ ORIENTED x4. ABLE TO MAKE NEEDS KNOWN. PATIENT ON ROOM AIR WITH EQUAL AND UNLABORED BREATHING. WITH LEFT FOREARM G 18 AND LEFT AC G 18 BOTH ON SALINE LOCK, PATENT AND INTACT. WITH SEVERAL SKIN ISSUES BUT STILL REFUSED TO BE CHECKED AT THIS TIME. COMFORT MEASURES PROVIDED. WITH SAFETY PRECAUTIONS IN PLACE, WITH BED IN LOWEST, LOCKED POSITION, SIDERAILS UPx2, TABLE AND CALL LIGHT WITHIN REACH. WILL ENDORSE PATIENT FOR CONTINUITY OF CARE.
--- NOTE | 2021-11-19 19:28 | NUR ---
RN OPENING NOTES RECEIVED PT IN BED, AWAKE. AOx4, ABLE TO MAKE NEEDS KNOWN. ON RA AND TOLERATING WELL. NO SOB NOTED. NO S/SX OF RESPIRATORY DISTRESS NOTED. ON TELE MONITOR DETECTS SR WITH RATE OF60. IV ACCESS IN LAC #18G AMD LFA #18G. IV IS INTACT,PATENT, AND FLUSHING WELL. SAFETY PRECAUTIONS IN PLACE: BED IN LOWEST, LOCKED POSITION, SIDERAILS UPx2, AND BRAKES ON. TABLE AND CALL LIGHT WITHIN REACH. WILL CONTINUE TO MONITOR.
[2021-11-19 20:00] VITALS: BP 146/78
--- NOTE | 2021-11-19 20:39 | NUR ---
DID NOT ADMINISTER HEPARIN GAIL TERRY HAS PLATELET COUNT OF 82. WILL CONTINUE TO MONITOR.
[2021-11-19] MEDS: *INSULIN REGULAR(HUMULIN R)HUM 100 UNIT/ML VIAL SQ PRN (21:26)
[2021-11-19] MEDS ORDERED: LIDOCAINE /MPF 1% VIAL 5 ML VIAL IJ STA (22:12)
--- NOTE | 2021-11-19 22:20 | NUR ---
ORDER FOR LIDOCAINE PLACED PER REQUEST OF PICC LINE NURSE.
[2021-11-19] MEDS ORDERED: LIDOCAINE 1% INJ 50 ML MDV IJ ONE (22:37)
[2021-11-20] VITALS: BP 106/66
[2021-11-20] MEDS: BLOOD SUGAR DIAGNOSTIC 1 EACH STRIP VI SCH ×2 (06:31→11:49)
[2021-11-20] MEDS: INSULIN REGULAR, HUMAN 100 UNIT/ML 3 ML VIAL SQ PRN ×2 (06:33→11:54)
--- NOTE | 2021-11-20 06:48 | NUR ---
RN CLOSING NOTES PT IN BED, AWAKE. AOx4, ABLE TO MAKE NEEDS KNOWN. ON RA AND TOLERATING WELL. NO SOB NOTED. NO S/SX OF RESPIRATORY DISTRESS NOTED. ON TELE MONITOR DETECTS SR WITH RATE OF 60. IV ACCESS IN LAC #18G, LFA #18G, AND YANELY MIDLINE #18G. IV IS INTACT,PATENT, AND FLUSHING WELL. SAFETY PRECAUTIONS IN PLACE: BED IN LOWEST, LOCKED POSITION, SIDERAILS UPx2, AND BRAKES ON. ALL NEEDS MET. PT KEPT CLEAN AND DRY. TABLE AND CALL LIGHT WITHIN REACH. WILL ENDORSE TO ONCOMING SHIFT FOR KAT.
--- NOTE | 2021-11-20 07:23 | NUR ---
RN OPENING NOTES PT IN BED, AWAKE NOT IN ANY SIGN OF RESPIRATORY DISTRESS. AOx4, ABLE TO MAKE NEEDS KNOWN. ON RA AND TOLERATING WELL. BREATHING EVEN AND UNLABORED. ON TELE MONITOR DETECTS SR WITH RATE OF 64. DENIES PAIN AND DISCOMFORT AT THIS TIME. PT'S IV ACCESS IN LAC #18G, LFA #18G, AND YANELY MIDLINE #18G IS INTACT, PATENT, AND FLUSHING WELL. SAFETY PRECAUTIONS IN PLACE: BED IN LOWEST AND LOCKED POSITION, SIDERAILS UPx2. PT KEPT CLEAN AND DRY. TABLE AND CALL LIGHT WITHIN REACH. WILL CONTINUE TO MONITOR.
[2021-11-20 07:36] LABS: BASOPHILS % (AUTO) 0.9 % (0.0-2.0); HEMATOCRIT 25 % (39-51); HEMOGLOBIN 8.6 g/dL (13.5-17.5); LYMPHOCYTES % (AUTO) 27.1 % (20.0-44.0); MEAN CORPUSCULAR HGB CONC 35 g/dl (31.0-36.0); MEAN CORPUSCULAR VOLUME 98 fL (80-96); MONOCYTES # (AUTO) 0.7 K/uL (0.1-1.30); MONOCYTES % (AUTO) 17.8 % (2.0-12.0); NEUTROPHILS % (AUTO) 52.2 % (43.0-81.0); PLATELET COUNT (AUTO) 94 K/uL (150-450); RED BLOOD CELL COUNT(AUTO) 2.51 MIL/uL (4.5-6.0); WHITE BLOOD COUNT (AUTO) 3.8 K/uL (4.3-11.0)
[2021-11-20 08:00] VITALS: BP 143/82
[2021-11-20] MEDS ORDERED: CEFAZOLIN 2 GM in IV D5W 100 ML IV SCH (08:00)
[2021-11-20 08:40] LABS: ALBUMIN 2.8 g/dL (3.4-5.0); BILIRUBIN,TOTAL 0.4 mg/dL (0.2-1.0); CREATININE 2.2 mg/dL (0.6-1.3); POTASSIUM 4.2 mmol/L (3.5-5.1); TOTAL PROTEIN, SERUM 7.4 g/dL (6.4-8.2)
[2021-11-20] MEDS: FERROUS SULFATE (325 MG) 325 MG/TAB TABLET PO SCH (08:47)
[2021-11-20] MEDS: GABAPENTIN 300 MG CAPSULE PO SCH ×2 (08:48→12:26)
[2021-11-20] MEDS: METOPROLOL TARTRATE 25 MG TABLET PO SCH (08:48)
[2021-11-20] MEDS: AMLODIPINE BESYLATE 5 MG TABLET PO SCH (08:48)
[2021-11-20] MEDS: MULTIVIT W/MINERALS 1 TAB TABLET PO SCH (08:48)
[2021-11-20] MEDS: PANTOPRAZOLE 40 MG TABLET.DR PO SCH (08:48)
[2021-11-20 08:49] VITALS: BP 143/82
[2021-11-20] MEDS: PROPRANOLOL HCL 10 MG TABLET PO SCH (08:49)
[2021-11-20] MEDS: THIAMINE HCL 100 MG TABLET PO SCH (08:49)
[2021-11-20] MEDS: LISINOPRIL (20MG) 20 MG TABLET PO SCH (08:49)
[2021-11-20] MEDS: INSULIN GLARGINE, 100 UNIT/ML CARTRIDGE SQ SCH (09:12)
--- NOTE | 2021-11-20 16:46 | NUR ---
RN MS NOTES PT IN BED, AWAKE, ALERT AND ORIENTED, NO COMPLAINT OF PAIN OR ANY DISCOMFORT, RESPIRATIONS NORMAL, TOLERATES ROOM AIR, PT STATED THAT HE WANTS TO LEAVA AGAINST MEDICAL ADVICE, EXPLAINED TO PT THAT ARRANGEMENTS ARE BEING MADE BY SHEEP BONER FOR THE CONTINUATION OF HIS IV ATB TREATMENT FOR 4 WEEKS, PT SAID THAT HE CAN NO LONGER WAIT AND WANTS TO LEAVE AMA, CHARGE NURSE, NURSING ENTRY LEVEL CIVIL ENGINEER, EMD SPECIAL EDUCATION TEACHER AND DR. ROSEN INFORMED, NURSING ENTRY LEVEL CIVIL ENGINEER AND EMD SPECIAL EDUCATION TEACHER SPOKE WITH PT BUT PT STILL WANTED TO LEAVE, BELONGINGS ACCOUNTED FOR, AMA FORM SIGNED, ASSISTED TO HOSPITAL LOBBY, LEFT IN STABLE CONDITION, DR. ROSEN AND NURSING ENTRY LEVEL CIVIL ENGINEER INFORMED.
--- NOTE | 2021-11-20 16:52 | NUR ---
RN MS NOTES BEFORE LEAVING, PT INSTRUCTED TO SEE HIS PRIMARY CARE PHYSICIAN FOR FOLLOW UP AND TO RETURN TO E.R. IN CASE OF EMERGENCY, VERBALIZED UNDERSTANDING.
== END 2021-11-20 16:45 | disposition left against medical advice (07) | DRG 420 ==
LOC: ER 20:22 → TELE 21:28 → MERGE 21:28 → MED 11-20 10:14
PROVIDERS: ADMIT Internal Medicine; ATTEND Internal Medicine
PROC: 30233N1 Transfusion of Nonautologous Red Blood Cells into Peripheral Vein, Percutaneous Approach (ICD-10-PCS; principal; 2021-11-13)
PROC: 0S9G3ZX Drainage of Left Ankle Joint, Percutaneous Approach, Diagnostic (ICD-10-PCS; 2021-11-14)
PROC: 05H533Z Insertion of Infusion Device into Right Subclavian Vein, Percutaneous Approach (ICD-10-PCS; 2021-11-20)
PROC: B546ZZA Ultrasonography of Right Subclavian Vein, Guidance (ICD-10-PCS; 2021-11-20)
DX: E11.69 Type 2 diabetes mellitus with other specified complication (principal); N17.0 Acute kidney failure with tubular necrosis; G93.40 Encephalopathy, unspecified; D61.818 Other pancytopenia; M86.18 Other acute osteomyelitis, other site; F10.129 Alcohol abuse with intoxication, unspecified; E87.2 Acidosis; E11.610 Type 2 diabetes mellitus with diabetic neuropathic arthropathy; I20.0 Unstable angina; E11.22 Type 2 diabetes mellitus with diabetic chronic kidney disease; D64.9 Anemia, unspecified; D69.59 Other secondary thrombocytopenia; I12.9 Hypertensive chronic kidney disease with stage 1 through stage 4 chronic kidney disease, or unspecified chronic kidney disease; N18.9 Chronic kidney disease, unspecified; Z91.19 Patient's noncompliance with other medical treatment and regimen; Y90.7 Blood alcohol level of 200-239 mg/100 ml; Z59.00 Homelessness unspecified; K74.60 Unspecified cirrhosis of liver; N62 Hypertrophy of breast; F03.90 Unspecified dementia, unspecified severity, without behavioral disturbance, psychotic disturbance, mood disturbance, and anxiety; I38 Endocarditis, valve unspecified; M65.9 Synovitis and tenosynovitis, unspecified; Z79.84 Long term (current) use of oral hypoglycemic drugs; Z20.822 Contact with and (suspected) exposure to COVID-19
CPT/HCPCS: 36410; 36415; 71045-TC; 75574; 80048-TC; 80053-TC; 80076-TC; 80202-TC; 81001; 82010-TC; 82550-TC; 82962-TC; 83605-TC; 83735-TC; 83880; 84100-TC; 84484-TC; 85025-TC; 85027-TC; 85378-TC; 85652-TC; 86140-TC; 86704; 86850-TC; 87040-TC; 87070-TC; 87081-TC; 87086-TC; 87186-TC; 87806; 93307-TC; 93970-TC; C9113; G0378; G0480; J0690; J0696; J0878; J1644; J1815; J2270; J3370; J3490; J7030; J7050; J7060; P9016; Q9967

== ENCOUNTER 2022-06-12 12:44 | Emergency (ER) | payer SELFPAY ==
[~2022-06-12] VITALS: Ht 188 cm; Wt 79.8 kg
[~2022-06-12 12:44] MED LIST changes: +AMLO-212 PO; +FERR325T24 PO; +GABA-532 PO; +GLIP5TAB13 PO; -IBUP-1955 PO; +METO25TA20 PO; +PANT40TA49 PO; +PROP10TA68 PO; +THIA100T88 PO
--- NOTE | 2022-06-12 12:57 | NUR ---
BIBRA, PT ETOH, BS = 500'S, RIGHT WRIST GAUGE 20 IV INTACT PATENT, RECEIVING NS UPON ARRIVAL PT A&O X 3
--- NOTE | 2022-06-12 13:05 | NUR ---
pt transfered to er bed 01 pulled his iv out and left. not seen by er provider.
[2022-06-12 13:10] VITALS: BP 167/95
== END 2022-06-12 13:16 | disposition left against medical advice (07) ==
LOC: ER 13:15
DX: Z53.21 Procedure and treatment not carried out due to patient leaving prior to being seen by health care provider (principal); F10.10 Alcohol abuse, uncomplicated; I10 Essential (primary) hypertension; E11.9 Type 2 diabetes mellitus without complications; Y90.9 Presence of alcohol in blood, level not specified

== ENCOUNTER 2022-08-19 11:07 | Emergency (ER) | payer OTHER ==
[~2022-08-19] VITALS: Ht 188 cm; Wt 79.4 kg
[2022-08-19 11:55] LABS: BASOPHILS % (AUTO) 0.7 % (0.0-2.0); EOSINOPHILS % (AUTO) 1.3 % (0.0-6.0); HEMATOCRIT 24 % (39-51); HEMOGLOBIN 8.1 g/dL (13.5-17.5); MEAN CORPUSCULAR HGB CONC 34 g/dl (31.0-36.0); MEAN CORPUSCULAR VOLUME 94 fL (80-96); MONOCYTES # (AUTO) 0.3 K/uL (0.1-1.30); MONOCYTES % (AUTO) 10.5 % (2.0-12.0); NEUTROPHILS # (AUTO) 1.6 K/uL (1.8-8.9); NEUTROPHILS % (AUTO) 54.5 % (43.0-81.0); PLATELET COUNT (AUTO) 92 K/uL (150-450); RED BLOOD CELL COUNT(AUTO) 2.49 MIL/uL (4.5-6.0); WHITE BLOOD COUNT (AUTO) 2.9 K/uL (4.3-11.0)
[2022-08-19 12:16] LABS: EOSINOPHILS % (MANUAL) 1 % (0-4); LYMPHOCYTES % (MANUAL) 33 % (16-48); MONOCYTES % (MANUAL) 11 % (0-11.0); NEUTROPHILS % (MANUAL) 55 (42-76)
[2022-08-19 12:20] LABS: CALCIUM, SERUM 8.7 mg/dL (8.5-10.1); CREATININE 2.7 mg/dL (0.6-1.3); POTASSIUM 3.2 mmol/L (3.5-5.1)
[2022-08-19 12:24] LABS: ALBUMIN 3.1 g/dL (3.4-5.0); BILIRUBIN,DIRECT 0.4 mg/dL (0.0-0.2); BILIRUBIN,TOTAL 0.8 mg/dL (0.2-1.0)
[2022-08-19] MEDS ORDERED: THIAMINE HCL 100 MG TABLET PO SCH (12:30)
[2022-08-19] MEDS ORDERED: IV D5/ 0.9% NACL 1,000 ML IV PRN (12:30)
[2022-08-19] MEDS ORDERED: LORAZEPAM INJ 2 MG/ML VIAL IV PRN (12:30)
[2022-08-19] MEDS ORDERED: FOLIC ACID 1 MG TABLET PO SCH (12:30)
[2022-08-19] MEDS ORDERED: MULTIVITAMINS,THERAGRAN 1 UDTAB TABLET PO SCH (12:30)
[2022-08-19] MEDS ORDERED: MAGNESIUM HYDROXIDE 30 ML UDC PO PRN (12:30)
[2022-08-19] MEDS ORDERED: ONDANSETRON HCL/PF 4 MG/2 ML VIAL IVP PRN (12:30)
[2022-08-19] MEDS ORDERED: ACETAMINOPHEN 325 MG TABLET PO PRN (12:30)
[2022-08-19] MEDS ORDERED: Z GUARD REMEDY 4 OZ OINT TP PRN (12:30)
[2022-08-19] MEDS ORDERED: MAG HYDROX/AL HYDROX/SIMETH 30 ML UDC PO PRN (12:30)
[2022-08-19] MEDS ORDERED: INSU100I4 SQ (12:42)
[2022-08-19] MEDS ORDERED: ATOR10TA PO (12:42)
[2022-08-19] MEDS ORDERED: INSU100I26 SQ (12:42)
[2022-08-19] MEDS ORDERED: INSU100V11 SQ (12:42)
[2022-08-19] MEDS ORDERED: BENZ-38 PO (12:42)
[2022-08-19] MEDS ORDERED: NADO20TA3 PO (12:42)
[2022-08-19] MEDS ORDERED: GABA-532 PO (12:43)
[2022-08-19] MEDS ORDERED: PANT40TA49 PO (12:46)
[2022-08-19] MEDS ORDERED: LISI20TA30 PO (12:48)
[2022-08-19] MEDS ORDERED: METO25TA20 PO (12:48)
[2022-08-19] MEDS ORDERED: FOLI0.4T6 PO (12:57)
[2022-08-19] MEDS ORDERED: ASPI-1169 PO (12:58)
[2022-08-19] MEDS ORDERED: AMLODIPINE BESYLATE 5 MG TABLET PO SCH (15:00)
[2022-08-19] MEDS ORDERED: DEXTROSE 50%-WATER 50 ML DISP.SYRIN IV PRN (15:00)
[2022-08-19] MEDS ORDERED: INSULIN REGULAR, HUMAN 100 UNIT/ML 3 ML VIAL SQ PRN (15:00)
[2022-08-19 17:49] LABS: BILIRUBIN,URINE NEGATIVE (NEGATIVE); COLOR,URINE YELLOW (YELLOW); LEUKOCYTE ESTERASE ,URINE NEGATIVE (NEGATIVE); NITRITE, URINE NEGATIVE (NEGATIVE); PROTEIN,URINE 1+ mg/dl (NEGATIVE); UGLUCOSE 3+ mg/dL (NEGATIVE); UROBILINOGEN,URINE 0.2 EU/dL (0.2)
[2022-08-19 17:58] LABS: BACTERIA,URINE None seen /HPF (None Seen); SQUAMOUS EPITHELIAL CELL,UR 0-2 /HPF (None Seen); WBC,URINE 0-2 /HPF (0-3)
[2022-08-19] MEDS ORDERED: BLOOD SUGAR DIAGNOSTIC 1 EACH STRIP IN SCH (18:00)
[2022-08-19] MEDS ORDERED: INSULIN GLARGINE, 100 UNIT/ML CARTRIDGE SQ SCH (19:00)
[2022-08-19] MEDS ORDERED: ONDANSETRON HCL/PF 4 MG/2 ML VIAL ONE ×2 (19:29→21:07)
[2022-08-19] MEDS ORDERED: INSULIN REGULAR, HUMAN 100 UNIT/ML 10 ML VIAL ONE (19:29)
[2022-08-19] MEDS ORDERED: IV NS 0.9% 1,000 ML BAG IV ONE (19:30)
[2022-08-19] MEDS ORDERED: ONDANSETRON HCL/PF - ER 4 MG/2 ML VIAL IV ONE ×2 (19:30→21:30)
[2022-08-19] MEDS ORDERED: INSULIN REGULAR, HUMAN 100 UNIT/ML 10 ML VIAL SQ ONE (19:30)
[2022-08-19 20:30] VITALS: BP 150/78
[2022-08-20] MEDS ORDERED: PANTOPRAZOLE 40 MG TABLET.DR PO SCH ×2 (07:30)
[2022-08-20] MEDS ORDERED: ASPIRIN 81 MG TAB.CHEW PO SCH (09:00)
[2022-08-20] MEDS ORDERED: ATORVASTATIN 10 MG TABLET PO SCH (09:00)
[2022-08-20] MEDS ORDERED: LISINOPRIL (20MG) 20 MG TABLET PO SCH (09:00)
[2022-08-20] MEDS ORDERED: NADOLOL 40 MG TABLET PO SCH (09:00)
[2022-08-20] MEDS ORDERED: GABAPENTIN 300 MG CAPSULE PO SCH (09:00)
[2022-08-20] MEDS ORDERED: THIAMINE HCL 100 MG TABLET PO SCH (09:00)
== END 2022-08-19 22:01 | disposition short-term general hospital (02) ==
LOC: ER 11:11
DX: F10.129 Alcohol abuse with intoxication, unspecified (principal); Y90.7 Blood alcohol level of 200-239 mg/100 ml; Z59.00 Homelessness unspecified; E11.649 Type 2 diabetes mellitus with hypoglycemia without coma; Z79.4 Long term (current) use of insulin; M19.90 Unspecified osteoarthritis, unspecified site; D61.818 Other pancytopenia; I12.9 Hypertensive chronic kidney disease with stage 1 through stage 4 chronic kidney disease, or unspecified chronic kidney disease; E11.22 Type 2 diabetes mellitus with diabetic chronic kidney disease; E11.65 Type 2 diabetes mellitus with hyperglycemia; N18.30 Chronic kidney disease, stage 3 unspecified; N17.9 Acute kidney failure, unspecified; Z91.199 Patient's noncompliance with other medical treatment and regimen due to unspecified reason; Z20.822 Contact with and (suspected) exposure to COVID-19
CPT/HCPCS: 99284; 96372; 96374; 96361; 85025; 80048; 80076; 85007; 81001; 36415; 87081; 82962 ×7; 87426; 80143; 80320; 80307; J1815; J2405; J7030; C9803; G0480

== ENCOUNTER 2022-10-23 17:54 | Emergency (ER) | payer OTHER ==
[~2022-10-23] VITALS: Ht 188 cm; Wt 79.4 kg
[~2022-10-23 17:54] MED LIST changes: -ACET-868 PO; -AMIN30LI2 PO; -AMLO5TAB4 PO; -ASCO-352 PO; +ASPI-1169 PO; +ATOR10TA PO; +BENZ-38 PO; -CEFT2VIA14 IV; -DOCU-141 PO; -ERGO500093 PO; -FERR325T24 PO; +FOLI0.4T6 PO; -GLIP5TAB13 PO; -HYDR-3972 PO; +INSU100I26 SQ; +INSU100I4 SQ; +INSU100V11 SQ; -INSU100V7 SQ; -MAGN400O6 PO; -METF-440 PO; -METO25TA20 PO; +NADO20TA3 PO; -PROP10TA68 PO; -SENN-261 PO; -SILV20CR13 TP
--- NOTE | 2022-10-23 19:30 | NUR ---
Pt is noted alert, responsive as he here form Bus stop C/O Left Leg pain x1week. History off Alcohol Abuse and Anemia . Pt care continue as XR Of Left Tiba done as awaits results.
--- NOTE | 2022-10-23 21:30 | NUR ---
Pt remain alert, responsive as X-Ray done. Pt care continue as awaits result.
[2022-10-23 21:32] LABS: WHITE BLOOD COUNT (AUTO) 3.2 K/uL (4.3-11.0)
[2022-10-23 21:33] LABS: HEMATOCRIT 27 % (39-51); HEMOGLOBIN 8.4 g/dL (13.5-17.5); MEAN CORPUSCULAR HGB CONC 31 g/dl (31.0-36.0); MEAN CORPUSCULAR VOLUME 105 fL (80-96); RED BLOOD CELL COUNT(AUTO) 2.59 MIL/uL (4.5-6.0)
[2022-10-23 21:36] LABS: BASOPHILS % (AUTO) 0.7 % (0.0-2.0); EOSINOPHILS % (AUTO) 1.9 % (0.0-6.0); LYMPHOCYTES % (AUTO) 32.9 % (20.0-44.0); MONOCYTES # (AUTO) 0.4 K/uL (0.1-1.30); MONOCYTES % (AUTO) 13.7 % (2.0-12.0); NEUTROPHILS # (AUTO) 1.8 K/uL (1.8-8.9); NEUTROPHILS % (AUTO) 50.8 % (43.0-81.0); PLATELET COUNT (AUTO) 43 K/uL (150-450)
[2022-10-23 21:37] LABS: BILIRUBIN,DIRECT 0.4 mg/dL (0.0-0.2); BILIRUBIN,TOTAL 0.8 mg/dL (0.2-1.0); CALCIUM, SERUM 8.6 mg/dL (8.5-10.1); POTASSIUM 3.8 mmol/L (3.5-5.1); TOTAL PROTEIN, SERUM 7.4 g/dL (6.4-8.2)
[2022-10-23 21:40] LABS: BASOPHILS % (MANUAL) 1 % (0.0-2.0); EOSINOPHILS % (MANUAL) 1 % (0-4); LYMPHOCYTES % (MANUAL) 30 % (16-48); MONOCYTES % (MANUAL) 13 % (0-11.0); NEUTROPHILS % (MANUAL) 55 (42-76)
[2022-10-23 21:43] LABS: CREATININE 2.3 mg/dL (0.6-1.3)
--- NOTE | 2022-10-23 22:00 | NUR ---
Pt will be admitted with covid19 done as ordered and IV #22G inserted and he started on IVF 0.9NS [id number]. Pt care continue.
--- NOTE | 2022-10-23 22:08 | NUR ---
ADDENDUM: Intravenous End Time Documentation: 1. Normal saline 1 liter (IV-WO) : start time: 2208 ; end time: 2308 : IV site: RH PIV # 20 Port # 1 2. Normal saline 1 liter (IV-WO) : start time: 2340 ; end time:0040 (10/24/2022): IV site:RH PIV # 20 Port # 1 3. Cefepime 1 gram in D5W 50 ml IVPB start time: 2300 ; end time: 2330 IV site: RH PIV # 20 Port # 1 4. Vancomycin 1 gram IVPB: start time: 2330 ; end time: 0030 (10/24/2022) : IV site:RH PIV # 20 Port # 2
--- NOTE | 2022-10-23 22:10 | NUR ---
TAKEN TO CT
[2022-10-23] MEDS ORDERED: VANCOMYCIN 1 GM in IV D5W 250 ML IV ONE (22:30)
[2022-10-23] MEDS ORDERED: CEFEPIME 1 GM in IV D5W 50 ML IV ONE (22:30)
[2022-10-23] MEDS ORDERED: IV NS 0.9% 1,000 ML IV ONE (22:30)
--- NOTE | 2022-10-23 22:50 | NUR ---
CRITICAL LACTIC OFF 3.4 CALLED IN AND MD IS MADE AWARE. PT CARE CONTINUE.
[2022-10-23] MEDS ORDERED: IV NS 0.9% 1,000 ML BAG IV ONE (23:00)
[2022-10-23] MEDS ORDERED: CEFEPIME 1 GM VIAL ONE (23:22)
[2022-10-23] MEDS ORDERED: VANCOMYCIN 1 GM VIAL ONE (23:42)
--- NOTE | 2022-10-23 23:49 | NUR ---
Pt care continue as pt is bolus IVF 0.9NS additional off 2.5Liters and also Vacon 1mg IVPB and Maxipime 1mg given as ordered.
--- NOTE | 2022-10-24 01:00 | NUR ---
PT ACCEPTED TO [facility] BY DR REED. BED 2246. # FOR REPORT [phone].
--- NOTE | 2022-10-24 01:09 | NUR ---
[facility] CALLED FOR BLS GOING TO [facility] PER JANE ETA 90 MIN
--- NOTE | 2022-10-24 02:17 | NUR ---
Pt care continue as [facility] and spoke with TESHA Turner as Pt is going to Room 5242.
[2022-10-24 02:37] VITALS: BP 155/75
--- NOTE | 2022-10-24 03:13 | NUR ---
Pt is noted off the by Ambulace as he stable and is been transferred to [facility] .
== END 2022-10-24 03:26 | disposition short-term general hospital (02) ==
LOC: ER 17:55
DX: S82.402A Unspecified fracture of shaft of left fibula, initial encounter for closed fracture (principal); M86.9 Osteomyelitis, unspecified; I10 Essential (primary) hypertension; E11.9 Type 2 diabetes mellitus without complications; D64.9 Anemia, unspecified; F17.200 Nicotine dependence, unspecified, uncomplicated; F60.2 Antisocial personality disorder; Z79.4 Long term (current) use of insulin; Z79.82 Long term (current) use of aspirin; Z79.899 Other long term (current) drug therapy; Z20.822 Contact with and (suspected) exposure to COVID-19; W18.30XA Fall on same level, unspecified, initial encounter; Y93.89 Activity, other specified; Y92.481 Parking lot as the place of occurrence of the external cause; Y99.8 Other external cause status
CPT/HCPCS: 99291; 96365; 96361; 96366; 96367; 73610; 73590; 73700; 85025; 80048; 87040 ×2; 83605 ×2; 80076; 85007; 85652; 36415 ×2; 86140; 87426; 80320; J3370; J7060; A4223 ×2; J0692 ×2; C9803; G0480

== ENCOUNTER 2023-01-06 15:01 | Inpatient (IN) | payer OTHER ==
[~2023-01-06] VITALS: Ht 188 cm; Wt 81.6 kg
--- NOTE | 2023-01-06 15:10 | NUR ---
BIB RA 81,LAYING ON THE GROUND W/ 2 BOTTLES OF ALCOHOL BESIDE HIM,BLOOD SUGAR READ "HI",200 ML NS INFUSED
[2023-01-06] MEDS ORDERED: IV NS 0.9% 1,000 ML BAG IV ONE ×2 (15:30→16:30)
[2023-01-06 15:40] LABS: BASOPHILS % (AUTO) 0.8 % (0.0-2.0); EOSINOPHILS % (AUTO) 1.6 % (0.0-6.0); HEMATOCRIT 24 % (39-51); HEMOGLOBIN 8.1 g/dL (13.5-17.5); LYMPHOCYTES # (AUTO) 1.3 K/uL (0.8-4.8); LYMPHOCYTES % (AUTO) 35.4 % (20.0-44.0); MEAN CORPUSCULAR HGB CONC 33 g/dl (31.0-36.0); MEAN CORPUSCULAR VOLUME 99 fL (80-96); MONOCYTES # (AUTO) 0.3 K/uL (0.1-1.30); MONOCYTES % (AUTO) 8.6 % (2.0-12.0); NEUTROPHILS # (AUTO) 1.9 K/uL (1.8-8.9); NEUTROPHILS % (AUTO) 53.6 % (43.0-81.0); PLATELET COUNT (AUTO) 82 K/uL (150-450); RED BLOOD CELL COUNT(AUTO) 2.47 MIL/uL (4.5-6.0); WHITE BLOOD COUNT (AUTO) 3.6 K/uL (4.3-11.0)
--- NOTE | 2023-01-06 15:54 | NUR ---
RESTING COMFORTABLY , RISE AND FALL OF CHEST NOTED , NO SIGNS AND SYMPTOMS OF DISTRESS. CARE CONTINUES
[2023-01-06 16:02] LABS: CREATININE 2.3 mg/dL (0.6-1.3); POTASSIUM 3.8 mmol/L (3.5-5.1)
[2023-01-06] MEDS ORDERED: INSULIN REGULAR, HUMAN 100 UNITS in IV NS 0.9% 100 ML IV PRN ×2 (16:30)
[2023-01-06] MEDS ORDERED: MAG HYDROX/AL HYDROX/SIMETH 30 ML UDC PO PRN (17:00)
[2023-01-06] MEDS ORDERED: ONDANSETRON HCL/PF 4 MG/2 ML VIAL IVP PRN (17:00)
[2023-01-06] MEDS ORDERED: MORPHINE SULFATE INJ 2 MG/ML DISP.SYRIN IV PRN (17:00)
[2023-01-06] MEDS ORDERED: MAGNESIUM HYDROXIDE 30 ML UDC PO PRN (17:00)
[2023-01-06] MEDS ORDERED: IV NS 0.9% 1,000 ML IV PRN (17:00)
[2023-01-06] MEDS ORDERED: INSULIN REGULAR, HUMAN 100 UNIT in IV NS 0.9% 99 ML IV PRN ×2 (17:00)
[2023-01-06] MEDS ORDERED: Z GUARD REMEDY 4 OZ OINT TP PRN (17:00)
[2023-01-06] MEDS ORDERED: LORAZEPAM INJ 2 MG/ML VIAL IV PRN (17:00)
[2023-01-06 17:10] LABS: CALCIUM, SERUM 8.9 mg/dL (8.5-10.1); CREATININE 2.4 mg/dL (0.6-1.3); PHOSPHORUS 3.8 mg/dL (2.5-4.9); POTASSIUM 3.9 mmol/L (3.5-5.1)
--- NOTE | 2023-01-06 17:55 | NUR ---
[facility] MGMT. [phone]
--- NOTE | 2023-01-06 18:27 | NUR ---
IV ESTABLISHED L AC 20G, ADDITIONAL IV ESTABLISHED R WRIST 20G.
[2023-01-06 18:29] LABS: EOSINOPHILS % (MANUAL) 1 % (0-4); LYMPHOCYTES % (MANUAL) 30 % (16-48); MONOCYTES % (MANUAL) 7 % (0-11.0); NEUTROPHILS % (MANUAL) 62 (42-76)
[2023-01-06 18:31] LABS: MAGNESIUM 1.9 mg/dL (1.8-2.4); PHOSPHORUS 3.7 mg/dL (2.5-4.9)
--- NOTE | 2023-01-06 18:35 | NUR ---
COVID TEST COLLECTED AND SENT
--- NOTE | 2023-01-06 19:39 | NUR ---
REPORT GIVEN TO TESHA CONDE
--- NOTE | 2023-01-06 20:17 | NUR ---
pt transferred per acls protocol
[2023-01-06 20:42] LABS: MAGNESIUM 1.8 mg/dL (1.8-2.4); PHOSPHORUS 1.9 mg/dL (2.5-4.9)
[2023-01-06 20:44] LABS: CALCIUM, SERUM 8.5 mg/dL (8.5-10.1); CREATININE 2.2 mg/dL (0.6-1.3); POTASSIUM 3.2 mmol/L (3.5-5.1)
[2023-01-06 21:00] VITALS: BP 131/66
--- NOTE | 2023-01-06 21:00 | NUR ---
ELECTRONICS ENGINEERING TECHNOLOGIST INITIAL NOTE PT ARRIVED TO UNIT VIA GURNEY. PT ADMITTED FOR DKA AND HYPONATREMIA WITH MEDICAL HISTORY INCLUDING HTN, DM, CHRONIC ALCOHOL USE, OSTEOMYELITIS OF LEFT FOOT, AND CIRRHOSIS. PT ON ROOM AIR WITH O2SAT OF 98%; NO S/S OF RESP DISTRESS, NO SOB, NON-LABORED AND EQUAL BREATHING. PT ATTACHED TO BEDSIDE MONITOR, SR WITH HR OF 89. SKIN ASSESSED, NOTED TO HAVE SCABS ON RIGHT LEG AND ON LEFT LEG; PICTURES TAKEN AND PLACED IN CHART. IV ACCESS ON RAC 20G AND LFA 20G INTACT AND PATENT; INSULIN DRIP INFUSING AT 7.07 UNITS/HR. ALL BELONGINGS CHECKED AND INVENTORIED. BED IN LOWEST POSITION, CALL LIGHT WITHIN REACH, SIDE RAILS UP X2. WILL INITIATE PLAN OF CARE.
[2023-01-06] MEDS: BLOOD SUGAR DIAGNOSTIC 1 EACH STRIP IN SCH ×3 (21:04→23:10)
[2023-01-06 22:00] VITALS: BP 125/57
[2023-01-06] MEDS: POTASSIUM CHLORIDE 10 MEQ TABLET.SA PO SCH ×2 (22:24→23:33)
[2023-01-06] MEDS: POTASSIUM CL. PREMIX PERIPHER. 50 ML IV SCH ×2 (22:24→23:33)
[2023-01-06 23:00] VITALS: BP 135/61
[2023-01-07] VITALS (21 sets, daily range): BP systolic 131–175; BP diastolic 62–94
[2023-01-07 00:03] LABS: CALCIUM, SERUM 8.8 mg/dL (8.5-10.1); POTASSIUM 3.5 mmol/L (3.5-5.1)
[2023-01-07] MEDS: BLOOD SUGAR DIAGNOSTIC 1 EACH STRIP IN SCH ×17 (00:05→21:29)
[2023-01-07 04:58] LABS: BASOPHILS % (AUTO) 0.7 % (0.0-2.0); EOSINOPHILS % (AUTO) 2.5 % (0.0-6.0); HEMATOCRIT 22 % (39-51); HEMOGLOBIN 7.5 g/dL (13.5-17.5); LYMPHOCYTES # (AUTO) 0.6 K/uL (0.8-4.8); MEAN CORPUSCULAR HGB CONC 35 g/dl (31.0-36.0); MEAN CORPUSCULAR VOLUME 96 fL (80-96); MONOCYTES # (AUTO) 0.4 K/uL (0.1-1.30); MONOCYTES % (AUTO) 13.1 % (2.0-12.0); NEUTROPHILS # (AUTO) 1.9 K/uL (1.8-8.9); NEUTROPHILS % (AUTO) 62.7 % (43.0-81.0); PLATELET COUNT (AUTO) 58 K/uL (150-450); RED BLOOD CELL COUNT(AUTO) 2.23 MIL/uL (4.5-6.0)
[2023-01-07 05:21] LABS: CALCIUM, SERUM 8.6 mg/dL (8.5-10.1); CREATININE 1.8 mg/dL (0.6-1.3); MAGNESIUM 1.6 mg/dL (1.8-2.4)
[2023-01-07 06:26] LABS: EOSINOPHILS % (MANUAL) 4 % (0-4); LYMPHOCYTES % (MANUAL) 38 % (16-48); MONOCYTES % (MANUAL) 2 % (0-11.0); NEUTROPHILS % (MANUAL) 56 (42-76)
--- NOTE | 2023-01-07 06:51 | NUR ---
OFFICE MACHINES SALES REPRESENTATIVE CLOSING NOTE PT REMAINS IN BED, ASLEEP, A/O X2; IRRITABLE AT TIMES BUT OVERALL CALM AND COOPERATIVE. CONTINUES TO BE ON ROOM AIR WITH O2SAT RANGING FROM 96%-98%; NO S/S OF RESP DISTRESS, NO SOB, NON-LABORED AND EQUAL BREATHING. ATTACHED TO BEDSIDE MONITOR, SR WITH HR RANGING FROM 87-97. IV ACCESS ON LFA 20G AND RAC 20G, INTACT AND PATENT, FLUSHES EASILY WITH NO RESISTANCE; INSULIN DRIP CURRENTLY AT 1.3 UNITS/HR; NS INFUSING AT 75 ML/HR. ALL DUE MEDS ADMINISTERED DURING THE NIGHT. BED IN LOWEST POSITION, CALL LIGHT WITHIN REACH, SIDE RAILS UP X2. WILL ENDORSE TO DAYSHIFT NURSE TO CONTINUE CARE.
[2023-01-07] MEDS: ACETAMINOPHEN 325 MG TABLET PO PRN (07:01)
--- NOTE | 2023-01-07 07:04 | NUR ---
RN NOTE PT NOTED TO HAVE SMALL AMOUNT OF VOMITING WITH NAUSEA. PT ALSO HAD TEMPTERATURE OF 99.3. PT REFUSED COOLING MEASURES; TYLENOL 650 MG ADMINISTERED.
[2023-01-07] MEDS ORDERED: PANTOPRAZOLE 40 MG TABLET.DR PO SCH (07:30)
--- NOTE | 2023-01-07 08:11 | NUR ---
WOUND CARE CONSULT: PT PRESENTS WITH DRY ABRASIONS AND SCABS TO LOWER LEGS, PRESENT ON ADMISSION. PT IS INDEPENDENT WITH BED MOBILITY AND IS CONTINENT. WILL SEE PRN.
[2023-01-07] MEDS: THIAMINE HCL 100 MG TABLET PO SCH (08:19)
[2023-01-07 08:22] LABS: CREATININE 1.8 mg/dL (0.6-1.3); POTASSIUM 4.2 mmol/L (3.5-5.1)
--- NOTE | 2023-01-07 09:03 | NUR ---
ROLLOFF DRIVER [facility] WAS NOTIFIED OF BP TRENDS FROM 07AM TO 09AM HIGHEST 175/92, RECENT BMP RESULTS AWARE, VF=[phone] AWARE ALSO, ROLLOFF DRIVER NO NEW ORDER MADE AT THIS TIME.
[2023-01-07] MEDS ORDERED: IV D5/0.45 NACL 1,000 ML IV PRN (10:00)
[2023-01-07] MEDS ORDERED: MAGNESIUM OXIDE 400 MG TABLET PO ONE (10:00)
--- NOTE | 2023-01-07 10:30 | NUR ---
PT EVAL/EXERCISE ONGOING BY PT STAFF
--- NOTE | 2023-01-07 12:25 | NUR ---
ENVIRONMENTAL JOURNALIST SHELLY SEEN PATIENT NOW AWARE OF HIGH BP IN 163/88 NOW, RECENT NX=[id number] AND REFUSED LUNCH,PT. ONLY HAD SNACKS. ENVIRONMENTAL JOURNALIST NO ORDER AT THIS TIME.
[2023-01-07 13:40] LABS: CALCIUM, SERUM 8.8 mg/dL (8.5-10.1); CREATININE 1.8 mg/dL (0.6-1.3); POTASSIUM 4.3 mmol/L (3.5-5.1)
[2023-01-07] MEDS ORDERED: BLOOD SUGAR DIAGNOSTIC 1 EACH STRIP IN SCH (14:00)
[2023-01-07] MEDS ORDERED: DEXTROSE 50%-WATER 50 ML DISP.SYRIN IV PRN (14:00)
[2023-01-07] MEDS: IV NS 0.9% 1,000 ML IV SCH (14:48)
[2023-01-07] MEDS: CEFTRIAXONE 1 G in IV D5W 50 ML IV SCH (15:17)
[2023-01-07 15:24] LABS: THYROID STIMULATING HORMONE 1.11 uIU/mL (0.358-3.74)
[2023-01-07] MEDS ORDERED: K PHOS NEUTRAL 250 MG TABLET PO ONE (16:00)
[2023-01-07] MEDS: GABAPENTIN 100 MG CAPSULE PO SCH (17:34)
--- NOTE | 2023-01-07 17:50 | NUR ---
TRANSFERRED PATIENT TO [address] [place] [address] PER ORDER/PROTOCOL, PATIENT DENIES DISCOMFORT. BEDSIDE REPORT TO COBY FOR CONTINUITY OF CARE. AFEBRILE 98.6F orally.
--- NOTE | 2023-01-07 18:00 | NUR ---
RN MS NOTES RECEIVED PT FROM ORTHOPEDIC CAST SPECIALIST BRISEIDA VIA WHEELCHAIR, PT IS AWAKE, ALERT AND ORIENTED, DENIES PAIN, NOT IN DISTRESS, ROOM SET UP ORIENTATION PROVIDED, VERBALIZED UNDERSTANDING, VITALS TAKEN AND RECORDED, NOTED WITH ELEVATED BP AND ELEVATED BS, DR. PENG INFORMED, ORDERS GIVEN, NOTED AND CARRIED OUT, KEPT PT COMFORTABLE, NEEDS ATTENDED.
[2023-01-07] MEDS ORDERED: CLONIDINE HCL 0.1 MG TABLET PO PRN ×2 (18:30)
[2023-01-07] MEDS: CHLORDIAZEPOXIDE HCL 25 MG CAPSULE PO SCH (18:40)
[2023-01-07] MEDS: INSULIN REGULAR, HUMAN 100 UNIT/ML 3 ML VIAL SQ PRN (18:43)
--- NOTE | 2023-01-07 19:00 | NUR ---
RN OPENING NOTE RECEIVED PT AWAKE AND SITTING ON THE BED WITH DAUGHTER ON BEDSIDE. PT IS A/O X 4, ABLE TO MAKE NEEDS KNOWN. PT IS IN RA TOLERATING WELL, BREATHING EVEN AND UNLABORED @ THIS TIME. PT IV PRESENT ON LEFT FOREARM #22G SALINE LOCK, PATENT, INTACT AND FLUSHES WELL W/ NO S&SX OF INFILTRATION @ SITE NOTED. PT INTERNATIONAL TRADE ANALYST IS IN PLACE W/ CURRENT READING OF SINUS TACHY, HR OF 102 BPM. SAFETY MEASURES IN IS PLACE. BED IN LOWEST AND LOCKED POSITION. SIDE RAILS UP X 2. BEDSIDE TABLE AND CALL LIGHT IS EASY REACH. BED ALARM IS ON. WILL CONTINUE TO MONITOR PT ACCORDINGLY.
--- NOTE | 2023-01-07 19:30 | NUR ---
MS RN OPENING NOTE RECEIVED PATIENT FROM AM NURSE; PATIENT RESTING IN BED, A/O X 4, ABLE TO MAKE NEEDS KNOWN; STABLE ON ROOM AIR, BREATHING EVENLY AND NO S/S OF DISTRESS NOTED; WITH IV ACCESS AT LFA G#22 SALINE LOCK; ENCOURAGED VERBALIZATION OF NEEDS; SAFETY MEASURES IN PLACE, BED LOCKED IN LOWEST POSITION, SIDE RAILS UP X 3, CALL LIGHT AND TABLE WITHIN REACH; BED ALARM ON; WILL CONTINUE TO MONITOR THROUGHOUT SHIFT
[2023-01-07] MEDS: *INSULIN REGULAR(HUMULIN R)HUM 100 UNIT/ML VIAL SQ PRN (21:40)
--- NOTE | 2023-01-07 22:15 | NUR ---
MS RN NOTE ACCUCHECK WAS DONE AND PATIENT'S BLOOD SUGAR WAS 320. CHARGE NURSE MADE AWARE PRIOR TO ADMINISTERING 8 UNITS OF REGULAR INSULIN PER SLIDING SCALE. PATIENT TOLERATED WELL; WILL CONTINUE TO MONITOR
[2023-01-08] MEDS: IV NS 0.9% 1,000 ML IV SCH (02:38)
[2023-01-08] MEDS: BLOOD SUGAR DIAGNOSTIC 1 EACH STRIP IN SCH ×4 (06:32→21:55)
[2023-01-08] MEDS: INSULIN REGULAR, HUMAN 100 UNIT/ML 3 ML VIAL SQ PRN ×3 (06:42→17:01)
[2023-01-08 06:51] LABS: CALCIUM, SERUM 8.4 mg/dL (8.5-10.1); CREATININE 1.6 mg/dL (0.6-1.3); POTASSIUM 4.6 mmol/L (3.5-5.1)
--- NOTE | 2023-01-08 06:54 | NUR ---
MS RN CLOSING NOTE PATIENT RESTING IN BED, A/O X 4, ABLE TO MAKE NEEDS KNOWN; STABLE ON ROOM AIR, BREATHING EVENLY AND NO S/S OF DISTRESS NOTED; WITH IV ACCESS AT LFA G#22 RUNNING WITH 0.9% NS AT 75 ADMINISTERED MEDICATIONS PRESCRIBED; PATIENT'S NEEDS ATTENDED; MONITORED PATIENT ACCORDINGLY; SAFETY MEASURES IN PLACE, BED LOCKED IN LOWEST POSITION, SIDE RAILS UP X 3, CALL LIGHT AND TABLE WITHIN REACH; BED ALARM ON; WILL ENDORSE TO AM NURSE FOR KAT.
--- NOTE | 2023-01-08 07:15 | NUR ---
MS RN OPENING NOTES: RECEIVED PT AWAKE IN BED IN NO ACUTE SIGNS OF DISTRESS. A/O X3-4. ABLE TO MAKE NEEDS KNOWN , DENIES PAIN OR ANY DISCOMFORTS AT THIS TIME. ON ROOM AIR, TOLERATING WELL, BREATHING EVEN AND UNLABORED. IV ACCESS ON LFA G#20 INTACT WITH IVF OF NS @ 85ML/HR RUNNING WELL, NO S/S OF INFILTRATION NOTED. SAFETY MEASURES MAINTAINED: BED IN LOW POSITION, SIDE RAILS UP X2, CALL LIGHT WITHIN REACH. WILL CONTINUE WITH PLAN OF CARE.
[2023-01-08] MEDS: PANTOPRAZOLE 40 MG TABLET.DR PO SCH (07:46)
[2023-01-08 08:00] VITALS: BP 157/95
[2023-01-08 08:48] LABS: BASOPHILS % (AUTO) 0.9 % (0.0-2.0); EOSINOPHILS % (AUTO) 3.1 % (0.0-6.0); HEMATOCRIT 24 % (39-51); HEMOGLOBIN 8.2 g/dL (13.5-17.5); LYMPHOCYTES # (AUTO) 0.5 K/uL (0.8-4.8); LYMPHOCYTES % (AUTO) 22.9 % (20.0-44.0); MEAN CORPUSCULAR HGB CONC 34 g/dl (31.0-36.0); MEAN CORPUSCULAR VOLUME 97 fL (80-96); MONOCYTES # (AUTO) 0.3 K/uL (0.1-1.30); NEUTROPHILS # (AUTO) 1.4 K/uL (1.8-8.9); NEUTROPHILS % (AUTO) 61.1 % (43.0-81.0); PLATELET COUNT (AUTO) 51 K/uL (150-450); RED BLOOD CELL COUNT(AUTO) 2.47 MIL/uL (4.5-6.0); WHITE BLOOD COUNT (AUTO) 2.2 K/uL (4.3-11.0)
[2023-01-08] MEDS: CHLORDIAZEPOXIDE HCL 25 MG CAPSULE PO SCH ×3 (08:52→16:31)
[2023-01-08] MEDS: AMLODIPINE BESYLATE 5 MG TABLET PO SCH (08:54)
[2023-01-08] MEDS: FOLIC ACID 1 MG TABLET PO SCH (08:54)
[2023-01-08] MEDS: THIAMINE HCL 100 MG TABLET PO SCH (08:54)
[2023-01-08] MEDS: ATORVASTATIN 10 MG TABLET PO SCH (08:54)
[2023-01-08] MEDS: LISINOPRIL (20MG) 20 MG TABLET PO SCH (08:54)
[2023-01-08] MEDS: MULTIVIT W/MINERALS 1 TAB TABLET PO SCH (08:54)
[2023-01-08] MEDS: ASPIRIN 81 MG TAB.CHEW PO SCH (08:55)
[2023-01-08] MEDS: GABAPENTIN 100 MG CAPSULE PO SCH ×3 (08:55→16:31)
[2023-01-08] MEDS ORDERED: IV NS 0.9% 1,000 ML IV PRN (08:58)
[2023-01-08] MEDS ORDERED: NADOLOL 40 MG TABLET PO SCH (09:00)
--- NOTE | 2023-01-08 11:51 | NUR ---
RN NOTES URINE SPECIMEN FOR U/A COLLECTED AND CALLED LAB, SPOKED TO JACLYN TO PICK-UP SPECIMEN FROM UNIT.
--- NOTE | 2023-01-08 11:52 | NUR ---
RN NOTES PATIENT NOTED WITH BS OF 411MG/DL, REPEATED AND STILL HIGH 406MG/DL. SHIRRING TENDER KEH ON UNIT AND MADE AWARE WITH ORDER TO ADMINISTER REGULAR INSULIN 20 UNITS PER INSULIN COVERAGE, SAME ORDER TO D/C IVF OF NS.
[2023-01-08] MEDS: CEFTRIAXONE 1 G in IV D5W 50 ML IV SCH (14:03)
[2023-01-08 14:08] LABS: BILIRUBIN,URINE NEGATIVE (NEGATIVE); COLOR,URINE YELLOW (YELLOW); LEUKOCYTE ESTERASE ,URINE 1+ (NEGATIVE); NITRITE, URINE NEGATIVE (NEGATIVE); PROTEIN,URINE 1+ mg/dl (NEGATIVE); UGLUCOSE 3+ mg/dL (NEGATIVE); UROBILINOGEN,URINE 0.2 EU/dL (0.2)
[2023-01-08 14:11] LABS: BACTERIA,URINE Few /HPF (None Seen); SQUAMOUS EPITHELIAL CELL,UR Moderate /HPF (None Seen)
[2023-01-08 16:00] VITALS: BP 124/72
[2023-01-08 17:07] LABS: EOSINOPHIL,URINE None Seen
--- NOTE | 2023-01-08 17:10 | NUR ---
RN NOTES PT NOTED WITH HIGH BLOOD SUGAR OF 438MG/DL, REPEATED AND STILL HIGH 467 MG/DL. ADMINISTERED REGULAR 20 UNITS PER SLIDING SCALE PROTOCOL. RETAIL DEPARTMENT MANAGER DANISH MADE AWARE WITH ORDER TO GIVE EXTRA 10 UNITS OF REGULAR INSULIN.
[2023-01-08] MEDS ORDERED: INSULIN REGULAR, HUMAN 100 UNIT/ML 10 ML VIAL SQ ONE (17:15)
--- NOTE | 2023-01-08 18:44 | NUR ---
MS RN CLOSING NOTES: PT IN BED AWAKE AND RESTING AT SEMI-MANZO'S POSITION. A/O X4. ABLE TO MAKE NEEDS KNOWN. ON ROOM AIR, TOLERATING WELL, BREATHING EVEN AND UNLABORED. IV ACCESS ON LFA G#20 INTACT, PATENT AND FLUSHES WELL. ALL NEEDS AND CARE ATTENDED WELL. SAFETY MEASURES MAINTAINED: BED IN LOWEST LOCKED POSITION, SIDE RAILS UP X2, CALL LIGHT WITHIN REACH. WILL ENDORSE KAT TO GELATIN POWDER MIXER
--- NOTE | 2023-01-08 19:20 | NUR ---
MS RN OPENING NOTE PATIENT IS SLEEPING IN BED, EASILY BEING AROUSED. HE IS ALERT AND ORIENTED, AO X 3. PT IS ON RA, TOLERATED WELL. NO S/S OF DISTRESS OR SOB. PT DENIES OF HAVING PAIN AT THIS MOMENT. IV ACCESS IS AT HIS R AC, #20G, SL; AND ANOTHER ONE IS AT HIS L FA, #20G, SL. BOTH ARE FLUSHED WELL WITH 10 CC OF NS. IV SITES ARE PATENT AND INTACT. SAFETY MEASURES ARE IN PLACED: BED IN LOWEST AND LOCKED POSITION; SIDE RAILS UP X 2; CALL LIGHT AND TABLE ARE WITHIN REACH. WILL CONTINUE MONITORING THE PT AND PROVIDE THE CARE PT NEEDS.
[2023-01-08 20:00] VITALS: BP 114/75
[2023-01-08] MEDS: METOPROLOL TARTRATE 50 MG TABLET PO SCH (21:41)
[2023-01-08] MEDS ORDERED: INSULIN GLARGINE, 100 UNIT/ML CARTRIDGE SQ SCH ×2 (22:00)
[2023-01-08] MEDS: *INSULIN REGULAR(HUMULIN R)HUM 100 UNIT/ML VIAL SQ PRN (22:17)
[2023-01-09 01:27] LABS: BAND % (MANUAL) 8 % (0.0-5.0); BASOPHILS % (MANUAL) 0 % (0.0-2.0); EOSINOPHILS % (MANUAL) 3 % (0-4); LYMPHOCYTES % (MANUAL) 21 % (16-48); MONOCYTES % (MANUAL) 11 % (0-11.0); NEUTROPHILS % (MANUAL) 57 (42-76)
--- NOTE | 2023-01-09 06:00 | NUR ---
MS PARKINSON NOTE CHECKED PT'S BLOOD SUGAR AT 0550: 478. RECHECKED: 492. CHECKED AGAIN AT 0555: 472. CONTACTED MD JENNIFER LOPEZ, RECEIVED ORDER. Addendum: 01/09/23 at 0608 by OG THOMAS RN "GIVE 25 UNITS REGULAR INSULIN. RECHECK IN 2 HOURS."
[2023-01-09] MEDS ORDERED: INSULIN REGULAR, HUMAN 100 UNIT/ML 10 ML VIAL SQ ONE (06:30)
[2023-01-09] MEDS: BLOOD SUGAR DIAGNOSTIC 1 EACH STRIP IN SCH ×4 (06:37→22:27)
[2023-01-09 07:00] VITALS: BP 142/79
--- NOTE | 2023-01-09 07:00 | NUR ---
MS RN NOTE ADMINISTERED 25 UNITS OF REGULAR INSULIN PER MD ORDER FOR AC BS 472. SLIDING SCALE INSULIN NOT GIVEN PER MD ORDER.
--- NOTE | 2023-01-09 07:22 | NUR ---
MS RN CLOSING NOTE PATIENT IS SLEEPING IN BED, EASILY BEING AROUSED. HE IS ALERT AND ORIENTED, AO X 3. PT IS ON RA, TOLERATED WELL. NO S/S OF DISTRESS OR SOB. PT DENIES OF HAVING PAIN AT THIS MOMENT. IV ACCESS IS AT HIS R AC, #20G, SL; AND ANOTHER ONE IS AT HIS L FA, #20G, SL. BOTH ARE FLUSHED WELL WITH 10 CC OF NS. IV SITES ARE PATENT AND INTACT. BLOOD SUGAR CHECK 3 TIMES: RECEIVED RESULTS: 478, 492, AND 472. NOTIFIED MD AND RECEIVED ORDER FOR "GIVE 25 UNITS REGULAR INSULIN. RECHECK IN 2 HOURS." SAFETY MEASURES ARE IN PLACED: BED IN LOWEST AND LOCKED POSITION; SIDE RAILS UP X 2; CALL LIGHT AND TABLE ARE WITHIN REACH. DURING THE SHIFT, PT'S NEEDS HAVE MET; MEDICATIONS WERE ADMINISTERED. ENDORSES NEXT SHIFT NURSE FOR CONTINUING PT CARE.
--- NOTE | 2023-01-09 07:23 | NUR ---
MS RN OPENING NOTES: RECEIVED PT AWAKE IN BED WATCHING TV. A/O X4. ABLE TO MAKE NEEDS KNOWN , DENIES PAIN OR ANY DISCOMFORTS AT THIS TIME. ON ROOM AIR, TOLERATING WELL, BREATHING EVEN AND UNLABORED. IV ACCESS ON LFA G#20 INTACT, PATENT, SL. SAFETY MEASURES MAINTAINED: BED IN LOWEST LOCKED POSITION, SIDE RAILS UP X2, BED ALARM ON AND CALL LIGHT WITHIN REACH. WILL CONTINUE WITH PLAN OF CARE.
[2023-01-09 08:16] LABS: CALCIUM, SERUM 8.6 mg/dL (8.5-10.1); CREATININE 2.1 mg/dL (0.6-1.3); POTASSIUM 4.7 mmol/L (3.5-5.1)
[2023-01-09] MEDS: MULTIVIT W/MINERALS 1 TAB TABLET PO SCH (08:17)
[2023-01-09] MEDS: THIAMINE HCL 100 MG TABLET PO SCH (08:17)
[2023-01-09] MEDS: PANTOPRAZOLE 40 MG TABLET.DR PO SCH (08:17)
[2023-01-09] MEDS: CHLORDIAZEPOXIDE HCL 25 MG CAPSULE PO SCH ×3 (08:17→16:29)
[2023-01-09] MEDS: FOLIC ACID 1 MG TABLET PO SCH (08:17)
[2023-01-09] MEDS: ASPIRIN 81 MG TAB.CHEW PO SCH (08:17)
[2023-01-09] MEDS: ATORVASTATIN 10 MG TABLET PO SCH (08:18)
[2023-01-09] MEDS: GABAPENTIN 100 MG CAPSULE PO SCH ×3 (08:18→16:29)
[2023-01-09] MEDS: AMLODIPINE BESYLATE 5 MG TABLET PO SCH (08:18)
[2023-01-09] MEDS: LISINOPRIL (20MG) 20 MG TABLET PO SCH (08:18)
[2023-01-09] MEDS: METOPROLOL TARTRATE 50 MG TABLET PO SCH ×2 (08:18→21:44)
[2023-01-09] MEDS ORDERED: INSULIN REGULAR, HUMAN 100 UNIT/ML 3 ML VIAL IV ONE (09:30)
--- NOTE | 2023-01-09 09:54 | NUR ---
RN NOTE PATIENTS BS 534 REPORTED TO NIRMALA PENG NP AND ORDERED 10 UNITS OF REGULAR INSULIN VIA IV AND CARRIED OUT.
[2023-01-09] MEDS ORDERED: IV NS 0.9% 1,000 ML IV PRN ×2 (10:30→14:00)
--- NOTE | 2023-01-09 10:58 | NUR ---
"SW Consult: SW consult requested for patient possible homelessness. Patient was brought in due to DKA. Patient presents alert and oriented x3 (self,place,time). Patient presents with a flat affect and was vague with this scenario writer. Patient reported that he was brought to the hospital stating that he had passed out because his sugar levels were low. Patient reported that he is homeless and lives in [facility]. He stated that he has been residing at [facility] for about 7 months. Patient resides at [facility] located [address] [place] [address]. He stated he would want to return back when he is stable. Patient reported he has no support. Patient denied mental illness. Patient denied suicidal or homicidal ideation. Patient denied visual/auditory hallucinations. patient denied substance or drug abuse. SW offered pt resources and pt was accepting of shelters and substance abuse referrals. Homeless wavier form is placed in the chart. DC Plan: Patient resides at [facility] located [id number] [place] [address]. He would want to return back. Substance Abuse resources provided included: [facility] Substance Abuse Self-Helpline ([facility]) ; CRI -HELP [address] [facility]. [place] [phone] ; [facility] [address] [facility] [address] ; [facility] [address] [facility] [phone] ; [facility] [address] [facility] [phone] ; [facility] Treatment [facility] 2590 [facility] [address] ; [facility] [address] [facility] [phone] ; [facility] Substance Abuse Helpline([facility])-[facility] ; [facility] ; [facility] [place]; [facility]; [facility] [place]; [facility] [place]; [place]; [facility]; [facility]); [facility], [facility]. [facility]; Alcoholics Anonymous -SFV; Pb-Oetd-Qrledmq ; Marijuana Anonymous -SFV; Narcotics Anonymous www.na.org; Shelters: [place] [facility] Provider: [facility] [place] Address: [address] [place], [address] # of Beds: 47 Population Served: [facility] 6 | [facility] Provider: [facility] Address: [address] [place] [address], [address] # of Beds: 66 Population Served: [facility] Provider: First to Serve Address: [address] [facility], [address] # of Beds: 56 Population Served: [facility] Horace [place] Provider: /Ms. Felipa Camarena Address: [address] [place] [address], [address] # of Beds: 49 Population Served: [facility] 8 | [facility] Provider: First to Serve Address: [address] [facility], [address] # of Beds: 37 Population Served: [facility] Hygiene: [facility]: [address] [address] [place] ; [facility] [address] [facility] ; [facility] [address] . Food Resources: [place] [facility] at [facility]- [address]. [place]; Meet Each Need with Dignity (MEND) [address] [facility]; [facility] 6495 [facility]; [facility] 1814 [facility]. Mental Health resources provided: [facility] [address] [place], [place] [address] ; [facility] [address] [facility] [address], [place], [place] [phone] ; [facility] [address] [facility] [place], [place] [phone] ; [facility] [address] [place], [place] [address] Healthcare Clinics: [facility] [address] [facility], [address] [place]. [place] ; [facility] [address] [facility] [address] [place] [address]; [facility] [place] [address] [facility] [place] [phone]) [phone] Counseling--Outpatient [facility] [address] [facility], [place] [address] (Specializes in in-depth psychotherapy for emotional distress: anxiety, depression, interpersonal conflicts, life transitions, childhood abuse) [facility] Guidance Center [address] [place], [place] [phone] (Assist with solving problem marital difficulties, separation & divorce, aging parents, & grief, chronic & terminal illness) [facility] [address] [place] [address] (Deal with loss & grief, anxiety, marital difficulties) Homebound/Mental Health Services [address] [facility], [address] [place], [place] [address] (Provide in-home mental services to people who are incapable of leaving their homes) [facility]eds of the Elderly Senior Service/Resource Center [address] [address] [facility] [place] [address] [facility] [address] [place] [address] PSYCHIATRIC OUTPATIENT SERVICES [facility] Partial Hospitalization and Intensive Outpatient Program (Managed Care and Mission Only)[address] [address] Jimenez. [facility] [phone] [facility] Partial Hospitalization and Outpatient [id number] [place], [place] [phone] [facility] [id number] [facility]. [address] [place], [place] [phone] [facility] Partial Hospitalization and Outpatient [id number] [facility] Domingo Rouse [phone] "
[2023-01-09] MEDS: INSULIN REGULAR, HUMAN 100 UNIT/ML 3 ML VIAL SQ PRN ×2 (11:31→17:16)
[2023-01-09] MEDS: CEFTRIAXONE 1 G in IV D5W 50 ML IV SCH (13:08)
[2023-01-09 16:00] VITALS: BP 122/69
--- NOTE | 2023-01-09 18:45 | NUR ---
MS RN CLOSING NOTES: PT IN BED AWAKE WATCHING TV AT THIS TIME. A/O X4. ABLE TO MAKE NEEDS KNOWN. ON ROOM AIR, TOLERATING WELL, BREATHING EVEN AND UNLABORED. IV ACCESS ON LFA G#20 INTACT WITH IVF OF NS @ 120ML/HR INFUSING WELL, NO S/S OF INFILTRATION AT SITE NOTED. PT ALSO HAS SL ON RFA G#20 INTACT AND PATENT. ALL NEEDS AND CARE ATTENDED WELL. SAFETY MEASURES MAINTAINED: BED IN LOWEST LOCKED POSITION, SIDE RAILS UP X2, CALL LIGHT WITHIN REACH. WILL ENDORSE KAT TO SKIRT PANEL ASSEMBLER.
--- NOTE | 2023-01-09 19:20 | NUR ---
MS RN OPENING NOTE PATIENT IS SLEEPING IN BED, EASILY BEING AROUSED. HE IS ALERT AND ORIENTED, AO X 4. PT IS ON RA, TOLERATED WELL. NO S/S OF DISTRESS OR SOB. PT DENIES OF HAVING PAIN AT THIS MOMENT. IV ACCESS IS AT HIS R AC, #20G, SL; AND ANOTHER ONE IS AT HIS L FA, #20G, INFUSING NS@120 ML/HR. IV SITES ARE PATENT AND INTACT. SAFETY MEASURES ARE IN PLACED: BED IN LOWEST AND LOCKED POSITION; SIDE RAILS UP X 2; CALL LIGHT AND TABLE ARE WITHIN REACH. WILL CONTINUE MONITORING THE PT AND PROVIDE THE CARE PT NEEDS.
[2023-01-09 20:00] VITALS: BP 130/70
[2023-01-09 20:32] VITALS: BP 130/70
[2023-01-09] MEDS ORDERED: INSULIN GLARGINE, 100 UNIT/ML CARTRIDGE SQ SCH (22:00)
--- NOTE | 2023-01-09 22:25 | NUR ---
MS RN NOTE PT BLOOD SUGAR CHECK, THE RESULT IS 401; REPEATED THE TEST, IT IS 404. NOTIFIED MD JENNIFER LOPEZ. WAITING FOR REPLY
[2023-01-09] MEDS: *INSULIN REGULAR(HUMULIN R)HUM 100 UNIT/ML VIAL SQ PRN (22:53)
[2023-01-10 06:11] LABS: BASOPHILS % (AUTO) 0.7 % (0.0-2.0); EOSINOPHILS % (AUTO) 2.2 % (0.0-6.0); HEMATOCRIT 23 % (39-51); HEMOGLOBIN 7.9 g/dL (13.5-17.5); LYMPHOCYTES # (AUTO) 0.5 K/uL (0.8-4.8); LYMPHOCYTES % (AUTO) 16.9 % (20.0-44.0); MEAN CORPUSCULAR HGB CONC 34 g/dl (31.0-36.0); MEAN CORPUSCULAR VOLUME 99 fL (80-96); MONOCYTES # (AUTO) 0.3 K/uL (0.1-1.30); MONOCYTES % (AUTO) 11.4 % (2.0-12.0); NEUTROPHILS # (AUTO) 2.1 K/uL (1.8-8.9); NEUTROPHILS % (AUTO) 68.8 % (43.0-81.0); PLATELET COUNT (AUTO) 53 K/uL (150-450); RED BLOOD CELL COUNT(AUTO) 2.35 MIL/uL (4.5-6.0)
[2023-01-10 06:25] LABS: CALCIUM, SERUM 8.6 mg/dL (8.5-10.1); POTASSIUM 4.2 mmol/L (3.5-5.1)
[2023-01-10] MEDS: BLOOD SUGAR DIAGNOSTIC 1 EACH STRIP IN SCH ×4 (06:35→21:09)
[2023-01-10] MEDS: INSULIN REGULAR, HUMAN 100 UNIT/ML 3 ML VIAL SQ PRN ×3 (06:41→17:11)
--- NOTE | 2023-01-10 06:52 | NUR ---
MS RN NOTE RECEIVED LAB CALL FOR CRITICAL LAB VALUE OF BS: 428. AM BLOOD SUGAR CHECK, THE RESULT IS 398. REGULAR INSULIN PER SLIDING SCALE WAS ADMINISTERED TO THE PT PER MD ORDER.
--- NOTE | 2023-01-10 07:33 | NUR ---
MS RN CLOSING NOTE PATIENT IS SLEEPING IN BED, EASILY BEING AROUSED. HE IS ALERT AND ORIENTED, AO X 4. PT IS ON RA, TOLERATED WELL. NO S/S OF DISTRESS OR SOB. PT DENIES OF HAVING PAIN AT THIS MOMENT. IV ACCESS IS AT HIS R AC, #20G, SL; AND ANOTHER ONE IS AT HIS L FA, #20G, INFUSING NS @120. IV SITES ARE PATENT AND INTACT. SAFETY MEASURES ARE IN PLACED: BED IN LOWEST AND LOCKED POSITION; SIDE RAILS UP X 2; CALL LIGHT AND TABLE ARE WITHIN REACH. DURING THE SHIFT, PT'S NEEDS HAVE MET; MEDICATIONS WERE ADMINISTERED. ENDORSED NEXT SHIFT NURSE FOR CONTINUING PT CARE.
--- NOTE | 2023-01-10 07:50 | NUR ---
RN OPENING NOTE- AWAKE IN BED, ALERT AND ORIENTED, AO X 4. PT IS ON RA, TOLERATING WELL. NO S/S OF DISTRESS OR SOB. DENIES OF HAVING PAIN AT THIS MOMENT. IV ACCESS IS AT HIS RAC, #20G, SL; AND LFA, #20G, INFUSING NS@120 ML/HR. SAFETY MEASURES ARE IN PLACED: BED IN LOWEST AND LOCKED POSITION; SIDE RAILS UP X 2; CALL LIGHT AND TABLE ARE WITHIN REACH.
[2023-01-10] MEDS: PANTOPRAZOLE 40 MG TABLET.DR PO SCH (08:20)
[2023-01-10] MEDS: ASPIRIN 81 MG TAB.CHEW PO SCH (08:25)
[2023-01-10] MEDS: FOLIC ACID 1 MG TABLET PO SCH (08:25)
[2023-01-10] MEDS: AMLODIPINE BESYLATE 5 MG TABLET PO SCH (08:26)
[2023-01-10] MEDS: GABAPENTIN 100 MG CAPSULE PO SCH ×3 (08:26→17:47)
[2023-01-10] MEDS: THIAMINE HCL 100 MG TABLET PO SCH (08:26)
[2023-01-10] MEDS: LISINOPRIL (20MG) 20 MG TABLET PO SCH (08:26)
[2023-01-10] MEDS: MULTIVIT W/MINERALS 1 TAB TABLET PO SCH (08:26)
[2023-01-10] MEDS: METOPROLOL TARTRATE 50 MG TABLET PO SCH ×2 (08:27→21:02)
[2023-01-10] MEDS: ATORVASTATIN 10 MG TABLET PO SCH (08:27)
[2023-01-10 09:52] VITALS: BP 129/76
[2023-01-10] MEDS: INSULIN GLARGINE, 100 UNIT/ML CARTRIDGE SQ SCH ×2 (10:48→18:02)
[2023-01-10] MEDS: CEFTRIAXONE 1 G in IV D5W 50 ML IV SCH (14:18)
[2023-01-10] MEDS: ACETAMINOPHEN 325 MG TABLET PO PRN (17:47)
[2023-01-10 17:57] VITALS: BP 130/71
--- NOTE | 2023-01-10 18:37 | NUR ---
RN CLOSING NOTE- AWAKE IN BED, ALERT AND ORIENTED, AO X 4. PT IS ON RA, TOLERATING WELL. NO S/S OF DISTRESS OR SOB. DENIES OF HAVING PAIN AT THIS MOMENT. IV ACCESS IS AT HIS RAC, #20G, SL; AND LFA, #20G, REF IVF. PO INTAKE GOOD. ACCU-CHECKS BS STILL > 400. AWARE. MADE CHANGES TO [place] SAFETY MEASURES ARE IN PLACED: BED IN LOWEST AND LOCKED POSITION; SIDE RAILS UP X 2; CALL LIGHT AND TABLE ARE WITHIN REACH. MONITOR / ASSIST
[2023-01-10 19:04] LABS: EOSINOPHILS % (MANUAL) 5 % (0-4); LYMPHOCYTES % (MANUAL) 20 % (16-48); MONOCYTES % (MANUAL) 5 % (0-11.0); NEUTROPHILS % (MANUAL) 70 (42-76)
--- NOTE | 2023-01-10 19:15 | NUR ---
MS RN OPENING NOTE PATIENT IS SITTING IN BED WATCHING TV. HE IS ALERT AND ORIENTED, AO X 4. PT IS ON RA, TOLERATED WELL. NO S/S OF DISTRESS OR SOB. PT DENIES OF HAVING PAIN AT THIS MOMENT. IV ACCESS IS AT HIS R AC, #20G, SL; AND ANOTHER ONE IS AT HIS L FA, #20G, SL. IV SITES ARE PATENT AND INTACT. SAFETY MEASURES ARE IN PLACED: BED IN LOWEST AND LOCKED POSITION; SIDE RAILS UP X 2; CALL LIGHT AND TABLE ARE WITHIN REACH. WILL CONTINUE MONITORING THE PT AND PROVIDE THE CARE PT NEEDS.
[2023-01-10 20:00] VITALS: BP 139/80
[2023-01-10] MEDS: *INSULIN REGULAR(HUMULIN R)HUM 100 UNIT/ML VIAL SQ PRN (21:15)
[2023-01-11] MEDS: INSULIN REGULAR, HUMAN 100 UNIT/ML 3 ML VIAL SQ PRN ×2 (06:47→11:58)
--- NOTE | 2023-01-11 07:15 | NUR ---
ms rn received on bedm awake,alertmoriented x4,not in any form of distress, respirations even and unlabored,no sob noted, lungs are clear,abdomen soft,positive bowel sounds,denies pain at this time, patient also find walking on the malagon way,tolerating well. all needs attended.
[2023-01-11 07:21] LABS: CALCIUM, SERUM 9.1 mg/dL (8.5-10.1); CREATININE 1.8 mg/dL (0.6-1.3); POTASSIUM 4.3 mmol/L (3.5-5.1)
--- NOTE | 2023-01-11 07:41 | NUR ---
MS RN CLOSING NOTE PATIENT IS SLEEPING IN BED, EASILY BEING AROUSED. HE IS ALERT AND ORIENTED, AO X 4. PT IS ON RA, TOLERATED WELL. NO S/S OF DISTRESS OR SOB. PT DENIES OF HAVING PAIN AT THIS MOMENT. IV ACCESS IS AT HIS R HAND, #22G, SL; IV SITE IS PATENT AND INTACT. SAFETY MEASURES ARE IN PLACED: BED IN LOWEST AND LOCKED POSITION; SIDE RAILS UP X 2; CALL LIGHT AND TABLE ARE WITHIN REACH. DURING THE SHIFT, PT'S NEEDS HAVE MET; MEDICATIONS WERE ADMINISTERED. ENDORSED NEXT SHIFT NURSE FOR CONTINUING PT CARE.
[2023-01-11] MEDS: BLOOD SUGAR DIAGNOSTIC 1 EACH STRIP IN SCH ×2 (07:45→11:59)
[2023-01-11 08:00] VITALS: BP 122/75
[2023-01-11] MEDS: THIAMINE HCL 100 MG TABLET PO SCH (08:48)
[2023-01-11] MEDS: METOPROLOL TARTRATE 50 MG TABLET PO SCH (08:48)
[2023-01-11 08:49] VITALS: BP 122/75
[2023-01-11] MEDS: FOLIC ACID 1 MG TABLET PO SCH (08:49)
[2023-01-11] MEDS: AMLODIPINE BESYLATE 5 MG TABLET PO SCH (08:49)
[2023-01-11] MEDS: ATORVASTATIN 10 MG TABLET PO SCH (08:49)
[2023-01-11] MEDS: ASPIRIN 81 MG TAB.CHEW PO SCH (08:49)
[2023-01-11] MEDS: MULTIVIT W/MINERALS 1 TAB TABLET PO SCH (08:49)
[2023-01-11] MEDS: LISINOPRIL (20MG) 20 MG TABLET PO SCH (08:49)
[2023-01-11] MEDS: GABAPENTIN 100 MG CAPSULE PO SCH ×3 (08:52→13:58)
[2023-01-11] MEDS: PANTOPRAZOLE 40 MG TABLET.DR PO SCH (08:53)
[2023-01-11] MEDS: INSULIN GLARGINE, 100 UNIT/ML CARTRIDGE SQ SCH (08:59)
--- NOTE | 2023-01-11 09:00 | NUR ---
ms nugent breakfast served,due meds given,tolerated well.
--- NOTE | 2023-01-11 12:00 | NUR ---
ms rn was seen by maxim awaiting for orders.
--- NOTE | 2023-01-11 13:45 | NUR ---
ms rn patient refused due meds at this time, explained to him importance of atb for his wound healing, but still wanted to go.
[2023-01-11] MEDS: CEFTRIAXONE 1 G in IV D5W 50 ML IV SCH ×2 (13:58→14:00)
--- NOTE | 2023-01-11 14:40 | NUR ---
ms rs patient found packing his things and wanted to leave ama.
--- NOTE | 2023-01-11 14:40 | NUR ---
ms rn patient went ama despite explanations of risks of going w/o complete tx of atb,no distress noted.
[2023-01-11] MEDS ORDERED: INSULIN GLARGINE, 100 UNIT/ML CARTRIDGE SQ SCH (17:00)
== END 2023-01-11 14:40 | disposition left against medical advice (07) | DRG 420 ==
LOC: ER 15:03 → ICU 18:53 → MED 01-07 17:52
PROVIDERS: ADMIT Nurse Practitioner Acute Care; ATTEND Nurse Practitioner Acute Care
DX: E11.10 Type 2 diabetes mellitus with ketoacidosis without coma (principal); N17.0 Acute kidney failure with tubular necrosis; G92.8 Other toxic encephalopathy; D61.818 Other pancytopenia; J15.9 Unspecified bacterial pneumonia; I27.20 Pulmonary hypertension, unspecified; K74.60 Unspecified cirrhosis of liver; D63.8 Anemia in other chronic diseases classified elsewhere; E87.1 Hypo-osmolality and hyponatremia; E86.1 Hypovolemia; I10 Essential (primary) hypertension; Z59.00 Homelessness unspecified; F10.129 Alcohol abuse with intoxication, unspecified; D53.9 Nutritional anemia, unspecified; Z79.899 Other long term (current) drug therapy; Z79.82 Long term (current) use of aspirin; Z79.4 Long term (current) use of insulin; E83.42 Hypomagnesemia; M19.90 Unspecified osteoarthritis, unspecified site
CPT/HCPCS: 36415; 71045-TC; 80048-TC; 81001; 82533; 82570-TC; 82962-TC; 83540-TC; 83735-TC; 84100-TC; 84300-TC; 84443-TC; 85025-TC; 86706; 86803; 87081-TC; 87086-TC; 93307-TC; 97112-TC; 97116-TC; 97530-TC; A4223; G0378; J0696; J1815; J2270; J2405; J3480; J3490; J7030; J7060

== ENCOUNTER 2023-03-21 16:16 | Inpatient (IN) | payer OTHER ==
[~2023-03-21] VITALS: Ht 200.7 cm; Wt 79.4 kg
[~2023-03-21 16:16] MED LIST changes: -ASPI-1169 PO; -BENZ-38 PO; +BLOO-668 IN; -INSU100I26 SQ; -INSU100V11 SQ; -THIA100T88 PO
--- NOTE | 2023-03-21 16:40 | NUR ---
RECEIVED PT 52 YRS MALE TRANSFER FROM SNF FOR EVALUATION UNBLE TO TACHER OF HIM SELF AND LOW BP IVF STRTED ON LT AC G 18
[2023-03-21] MEDS ORDERED: IV NS 0.9% 1,000 ML BAG IV ONE ×2 (17:00→19:30)
--- NOTE | 2023-03-21 17:30 | NUR ---
BLOOD DROW BY LAB TACK AND BLOOD CUTIURE DONE
--- NOTE | 2023-03-21 17:44 | NUR ---
ACCU CHECK DONE 158MG/LD
[2023-03-21 18:25] LABS: BASOPHILS % (AUTO) 0.8 % (0.0-2.0); EOSINOPHILS % (AUTO) 1.1 % (0.0-6.0); HEMATOCRIT 22 % (39-51); HEMOGLOBIN 7.4 g/dL (13.5-17.5); LYMPHOCYTES # (AUTO) 0.8 K/uL (0.8-4.8); MEAN CORPUSCULAR HGB CONC 34 g/dl (31.0-36.0); MEAN CORPUSCULAR VOLUME 93 fL (80-96); MONOCYTES # (AUTO) 0.4 K/uL (0.1-1.30); MONOCYTES % (AUTO) 11.8 % (2.0-12.0); NEUTROPHILS # (AUTO) 2.1 K/uL (1.8-8.9); NEUTROPHILS % (AUTO) 63.3 % (43.0-81.0); PLATELET COUNT (AUTO) 90 K/uL (150-450); RED BLOOD CELL COUNT(AUTO) 2.32 MIL/uL (4.5-6.0); WHITE BLOOD COUNT (AUTO) 3.3 K/uL (4.3-11.0)
--- NOTE | 2023-03-21 18:30 | NUR ---
Kyle tan in ED - 03/21/23 at 1913 by JACK PT REFUSED SWALLOW EVALUATION AT THIS TME REFUSED TO DRINK
--- NOTE | 2023-03-21 18:30 | NUR ---
NOTEFED ABOUT BP 81/50MMHG
[2023-03-21 18:31] LABS: CALCIUM, SERUM 8.2 mg/dL (8.5-10.1); CARBON DIOXIDE 24 mmol/L (21-32); CHLORIDE 95 mmol/L (98-107); CREATININE 3.7 mg/dL (0.6-1.3); GLUCOSE 141 mg/dL (74-106); POTASSIUM 3.4 mmol/L (3.5-5.1); SODIUM SERUM 132 mmol/L (136-145); UREA NITROGEN, BLOOD 41 mg/dL (7-18)
[2023-03-21 18:40] LABS: ALANINE AMINOTRANSFERASE 148 U/L (12-78); ALBUMIN 2.6 g/dL (3.4-5.0); ALKALINE PHOSPHATASE 209 U/L (46-116); ASPARTATE AMINOTRANSFERASE 239 U/L (15-37); BILIRUBIN,DIRECT 0.7 mg/dL (0.0-0.2); BILIRUBIN,TOTAL 1.2 mg/dL (0.2-1.0); LIPASE 154 U/L (73-393); TOTAL PROTEIN, SERUM 6.7 g/dL (6.4-8.2)
[2023-03-21 19:01] LABS: ALCOHOL, BLOOD < 3 mg/dL (0-10); MAGNESIUM 1.6 mg/dL (1.8-2.4)
[2023-03-21] MEDS ORDERED: APIX5TAB PO (19:14)
[2023-03-21] MEDS ORDERED: NIFE60TA73 PO (19:14)
[2023-03-21] MEDS ORDERED: NALT50TA PO (19:14)
[2023-03-21] MEDS ORDERED: GLIP5TAB13 PO (19:14)
[2023-03-21] MEDS ORDERED: PROP20TA7 PO (19:14)
[2023-03-21] MEDS ORDERED: ASPI-1169 PO (19:14)
[2023-03-21] MEDS ORDERED: METO25TA6 PO (19:14)
[2023-03-21] MEDS ORDERED: HYDR-4077 PO (19:14)
[2023-03-21 19:28] LABS: BAND % (MANUAL) 3 % (0.0-5.0); LYMPHOCYTES % (MANUAL) 22 % (16-48); MONOCYTES % (MANUAL) 12 % (0-11.0); NEUTROPHILS % (MANUAL) 63 (42-76)
--- NOTE | 2023-03-21 19:35 | NUR ---
IVF INFUSED THIS 3 LITER PT CAME WITH ONE LITER INFUED
--- NOTE | 2023-03-21 19:40 | NUR ---
HAND OFF SANTOSH PARKINSON
--- NOTE | 2023-03-21 19:41 | NUR ---
ADMISSION MOVE SHEET SUBMITTED
--- NOTE | 2023-03-21 19:47 | NUR ---
Harvey AOx4, able to expres his concerns. Pt in bed, no signs of distress or discomfort. Pt requesting food, per Md pt clear to eat.
[2023-03-21 20:00] VITALS: BP_SYST 125; BP_SYST 94; BP_DIAS 53; BP_DIAS 66; TEMP 97.5; O2SAT 91; O2SAT 96
--- NOTE | 2023-03-21 20:58 | NUR ---
Per Nursing Sup. pt can go to [phone]
--- NOTE | 2023-03-21 21:43 | NUR ---
DR PORTER ON PHONE CALL WITH DR SOSA ORDERS TO ADMIT TO TELE
--- NOTE | 2023-03-21 22:08 | NUR ---
Report given to alyson Stanford clear for transf. to [facility]
--- NOTE | 2023-03-21 22:30 | NUR ---
RN MS ADMITTING NOTES ADMITTED A 52 Y/O MALE UNDER THE SERVICE OF DR. 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 CAME FROM ER VIA GURNEY PATIENT IS A/O X 4 AND AMBULATORY WITH CANE; TRANSFERRED TO BED SAFELY AND SECURED; PATIENT IS ON ROOM AIR SATURATING WELL NO /SOB NOTED AT THIS TIME. PATIENT IS CONTINENT WITH BRP. ON CONSISTENT CARB DIET NO ASPIRATION NOTED; WITH IV ACCESS AT LAC #20G PATENT AND INTACT; SKIN ASSESSMENT DONE PICTURE TAKEN AND RECORDED, HISTORY TAKEN VIA PATIENT BUT WITH EPISODES OF FORGETFULNESS, INFORMED ALL ATTENDING PHYSICIAN REGARDING THE ADMISSION AND ALL ORDERS MADE AND CARRIED OUT. BED BATH DONE KEPT PATIENT WARM AND COMFORTABLE; PATIENT IS ORIENTED TO UNIT POLICY; KEPT SIDE RAILS UP X 2 ALL THE TIME; KEPT CALL LIGHT WITHIN AT REACH; KEPT BED ON LOWER LOCKED POSITION. WILL CONTINUE TO MONITOR.
[2023-03-21] MEDS: IV NS 0.9% 1,000 ML IV PRN (23:26)
[2023-03-21] MEDS ORDERED: HYDROCODONE/APAP 5/325MG TABLET PO PRN (23:30)
[2023-03-21] MEDS ORDERED: ACETAMINOPHEN 325 MG TABLET PO PRN (23:30)
[2023-03-21] MEDS ORDERED: DEXTROSE 50%-WATER 50 ML DISP.SYRIN IV PRN (23:30)
[2023-03-21] MEDS ORDERED: MAGNESIUM HYDROXIDE 30 ML UDC PO PRN (23:30)
[2023-03-21] MEDS ORDERED: MAG HYDROX/AL HYDROX/SIMETH 30 ML UDC PO PRN (23:30)
[2023-03-21] MEDS ORDERED: ONDANSETRON HCL/PF 4 MG/2 ML VIAL IVP PRN (23:30)
[2023-03-21] MEDS ORDERED: Magnesium 1GM/D5W 100ML PREMIX PIGGYBACK IV ONE (23:30)
[2023-03-21] MEDS ORDERED: ZOLPIDEM TARTRATE 5 MG TABLET PO PRN (23:30)
[2023-03-21] MEDS ORDERED: Z GUARD REMEDY 4 OZ OINT TP PRN (23:30)
[2023-03-21] MEDS ORDERED: Magnesium 1GM/D5W 100ML PREMIX 100 ML IV ONE (23:45)
[2023-03-22] VITALS: BP 133/69; TEMP 98.2; O2SAT 96
--- NOTE | 2023-03-22 | NUR ---
RN NOTES GIVEN 1 BAG OF MAGNESIUM. WILL CONTINUE TO MONITOR
[2023-03-22 04:00] VITALS: BP 99/57; TEMP 98.3; O2SAT 94
[2023-03-22 06:33] LABS: BILIRUBIN,URINE NEGATIVE (NEGATIVE); COLOR,URINE DARK YELLOW (YELLOW); LEUKOCYTE ESTERASE ,URINE TRACE (NEGATIVE); NITRITE, URINE NEGATIVE (NEGATIVE); PH,URINE 5.5 (5.0-8.0); PROTEIN,URINE 1+ mg/dl (NEGATIVE); UGLUCOSE 3+ mg/dL (NEGATIVE); UROBILINOGEN,URINE 0.2 EU/dL (0.2)
--- NOTE | 2023-03-22 06:41 | NUR ---
RN NOTES PATIENT HAVE BLOOD SUGAR OF 546MG/DL QO UNITS REGULAR INSULIN GIVEN. DR. IVONNE PEREZ INFORMED. AWAITING FOR REPLY. WILL CONTINUE TO MONITOR
--- NOTE | 2023-03-22 06:41 | NUR ---
RN MS CLOSING NOTES PATIENT IS IN BED, A/O X 4 ON MODERATE HIGH BACK REST POSITION. ON ROOM AIR SATURATING WELL NO SOB/ NOTED AT THIS TIME. PATIENT IS AMBULATORY WITH ASSISTANCE AND CANE; ON CONSISTENT CARB DIET NO ASPIRATION NOTED AT THIS DONE. WITH IV ACCESS AT LAC #20 WITH NS AT 100ML/HR INFUSING WELL NO SWELLING OR INFILTRATION NOTED AT THIS TIME. NO PAIN OR DISTRESSED NOTED AT THIS TIME. ALL DUE MEDICATIONS GIVEN ORDERED; ALL NEEDS ATTENDED; PM CARE RENDERED; KEPT PATIENT WARM AND COMFORTABLE KEPT BED ON MODERATE HIGH BACK REST POSITION, KEPT SIDE RAILS UP X 2 ALL THE TIME, KEPT CALL LIGHT WITHIN AT REACH. WILL ENDORSED TO AM SHIFT FOR KAT.
[2023-03-22 06:48] LABS: BACTERIA,URINE Rare /HPF (None Seen); RBC,URINE 0-2 /HPF (0-2); SQUAMOUS EPITHELIAL CELL,UR Few /HPF (None Seen)
[2023-03-22] MEDS: INSULIN REGULAR, HUMAN 100 UNIT/ML 3 ML VIAL SQ PRN ×3 (06:48→17:39)
[2023-03-22] MEDS: BLOOD SUGAR DIAGNOSTIC 1 EACH STRIP IN SCH ×3 (06:52→17:02)
--- NOTE | 2023-03-22 07:15 | NUR ---
RN NOTES PATIENT MEDICATIONS BOTTLES SENT TO PHARMACY FOR KEEP PATIENT WILL GET IT UPON DISCHARGE. PATIENT IS AWARE.
[2023-03-22 07:20] LABS: BASOPHILS % (AUTO) 0.9 % (0.0-2.0); EOSINOPHILS % (AUTO) 1.4 % (0.0-6.0); HEMATOCRIT 22 % (39-51); HEMOGLOBIN 7.3 g/dL (13.5-17.5); LYMPHOCYTES # (AUTO) 0.7 K/uL (0.8-4.8); LYMPHOCYTES % (AUTO) 33.5 % (20.0-44.0); MEAN CORPUSCULAR HGB CONC 34 g/dl (31.0-36.0); MEAN CORPUSCULAR VOLUME 94 fL (80-96); MONOCYTES # (AUTO) 0.2 K/uL (0.1-1.30); MONOCYTES % (AUTO) 11.1 % (2.0-12.0); NEUTROPHILS # (AUTO) 1.1 K/uL (1.8-8.9); NEUTROPHILS % (AUTO) 53.1 % (43.0-81.0); PLATELET COUNT (AUTO) 74 K/uL (150-450); RED BLOOD CELL COUNT(AUTO) 2.28 MIL/uL (4.5-6.0)
[2023-03-22 07:30] VITALS: BP 90/45; TEMP 98.3; O2SAT 88
--- NOTE | 2023-03-22 07:33 | NUR ---
RN OPENING NOTE PATIENT ASLEEP IN BED, RESTING. ROUSABLE TO NAME. APPEARS COMFORTABLE. A/OX4. NO SIGNS AND SYMPTOM OF PAIN NOTED AT THIS TIME. ON ROOM AIR, BREATHING EVEN AND NON LABORED, NO RESPIRATORY DISTRESS NOTED. IV ACCESS G20 ON LEFT AC, WITH N/S 100ML/HR INFUSING WELL. PATIENT AMBULATORY WITH BRP. FALL AND SAFETY MEASURES IN PLACE. BED IN LOW AND LOCKED POSITION. CALL LIGHT AND TABLE WITHIN EASY REACH. SIDE RAILS UP X2. WILL CONTINUE TO MONITOR.
[2023-03-22 07:51] LABS: CALCIUM, SERUM 8.1 mg/dL (8.5-10.1); CREATININE 3.9 mg/dL (0.6-1.3); PHOSPHORUS 3.7 mg/dL (2.5-4.9); POTASSIUM 3.7 mmol/L (3.5-5.1)
[2023-03-22] MEDS: PANTOPRAZOLE 40 MG TABLET.DR PO SCH (08:30)
[2023-03-22 11:39] LABS: BAND % (MANUAL) 4 % (0.0-5.0); BASOPHILS % (MANUAL) 0 % (0.0-2.0); EOSINOPHILS % (MANUAL) 2 % (0-4); LYMPHOCYTES % (MANUAL) 28 % (16-48); MONOCYTES % (MANUAL) 7 % (0-11.0); NEUTROPHILS % (MANUAL) 59 (42-76)
--- NOTE | 2023-03-22 12:30 | NUR ---
RN NOTE PATIENT BLOOD SUGAR IS 551, 10 UNITS OF HUMOLIN R GIVEN PER SLIDING SCALE. RELAYED TO .
[2023-03-22] MEDS: IV NS 0.9% 1,000 ML IV PRN (15:22)
[2023-03-22] MEDS: BLOOD SUGAR DIAGNOSTIC 1 EACH STRIP VI SCH ×2 (17:17→21:47)
[2023-03-22] MEDS ORDERED: DEXTROSE 50%-WATER 50 ML DISP.SYRIN IV PRN (17:30)
[2023-03-22] MEDS ORDERED: *INSULIN REGULAR(HUMULIN R)HUM 100 UNIT/ML VIAL SQ PRN (17:30)
--- NOTE | 2023-03-22 17:30 | NUR ---
RN NOTE PATIENT BLOOD SUGAR IS 567, 15 UNITS OF HUMOLIN R GIVEN ON MODERATE SLIDING SCALE. RELAYED TO .
--- NOTE | 2023-03-22 18:54 | NUR ---
RN NOTE PATIENT BLOOD SUGAR AFTER HOUR FROM GETTING 15 UNITS HUMOLIN R STILL HIGH AT 564. RELAYED TO MD PENDING RESPONSE.
--- NOTE | 2023-03-22 18:55 | NUR ---
RN CLOSING NOTE PATIENT AWAKE IN BED, RESTING, APPEARS COMFORTABLE. A/OX4. NO S/SX OF PAIN NOTED AT THIS TIME. ON ROOM AIR, BREATHING EVEN AND UNLABORED, NOT IN RESPIRATORY DISTRESS. WITH IF ACCESS ON LEFT AC G18, PATENT AND INTACT. NS @100MLS/HR INFUSING WELL. FALL AND SAFETY MEASURES IN PLACE. BED IN LOW AND LOCKED POSITION. CALL LIGHT AND TABLE WITHIN REACH. SIDE RAILS UP X2. SCHEDULED MEDICATIONS GIVEN. ENCOURAGED AMBULATION. ALL NEEDS ATTENDED AND ANTICIPATED. WILL ENDORSE TO AUDIT SENIOR ASSOCIATE NURSE.
--- NOTE | 2023-03-22 19:26 | NUR ---
RN NOTE MD INFORMED VIA PHONE OF BLOOD SUGAR, NO NEW ORDERS. WILL ENDORSE TO LAUNCH MANAGER NURSE
--- NOTE | 2023-03-22 19:30 | NUR ---
NOC RN OPENING NOTE RECEIVED PATIENT AMBULATING THE HALLWAY WITH IV POLE, A/OX4. PATIENT ABLE TO MAKE NEEDS KNOWN. NO S/S OF APPARENT DISTRESS IN ROOM AIR, BREATHING EVEN AND UNLABORED. IV ACCESS ON LEFT AC #18G RUNNING IV NS @100MLS/HR. PATIENT NEEDS ATTENDED FOR NOW, SAFELY ASSISTED BACK IN BED. SAFETY IN PLACE-- BED IN LOWEST, LOCKED POSITION, CALL LIGHT WITHIN REACH. WILL CONTINUE WITH PLAN OF CARE FOR PATIENT.
[2023-03-22 20:00] VITALS: BP 106/66; TEMP 97.8; O2SAT 94
--- NOTE | 2023-03-22 21:47 | NUR ---
noc rn note patient's blood sugar 457, given 10 units per sliding scale. per charge nurse Jinny, no need to inform hospitalist Jose L since Doctor Zulma already ordered patient to be in moderate sliding scale only. will cont. to monitor patient.
[2023-03-23] MEDS: IV NS 0.9% 1,000 ML IV PRN ×2 (03:16→14:23)
[2023-03-23] MEDS: BLOOD SUGAR DIAGNOSTIC 1 EACH STRIP VI SCH ×2 (06:42→11:28)
[2023-03-23] MEDS: INSULIN REGULAR, HUMAN 100 UNIT/ML 3 ML VIAL SQ PRN ×3 (06:43→17:26)
--- NOTE | 2023-03-23 07:17 | NUR ---
NOC RN CLOSING NOTE PATIENT IN BED WITH EYES CLOSED, EASY TO AROUSE. BREATHING EVEN AND UNLABORED. NS RUNNING @100MLS/HR AT THIS TIME. ALL NEEDS ATTENDED. ALL SCHEDULED MEDICATIONS ADMINISTERED. ENDORSED TO LUIS E LIGHT RN FOR CONTINUITY OF PATIENT CARE.
[2023-03-23 07:30] VITALS: BP 128/69; TEMP 97.9; O2SAT 86
[2023-03-23] MEDS: PANTOPRAZOLE 40 MG TABLET.DR PO SCH (07:48)
[2023-03-23 08:43] VITALS: BP 130/60; TEMP 98.8; O2SAT 97
[2023-03-23 09:25] LABS: BASOPHILS % (AUTO) 0.2 % (0.0-2.0); EOSINOPHILS % (AUTO) 1.1 % (0.0-6.0); HEMATOCRIT 22 % (39-51); HEMOGLOBIN 7.6 g/dL (13.5-17.5); LYMPHOCYTES # (AUTO) 0.6 K/uL (0.8-4.8); LYMPHOCYTES % (AUTO) 20.3 % (20.0-44.0); MEAN CORPUSCULAR HGB CONC 34 g/dl (31.0-36.0); MEAN CORPUSCULAR VOLUME 94 fL (80-96); MONOCYTES # (AUTO) 0.3 K/uL (0.1-1.30); MONOCYTES % (AUTO) 8.1 % (2.0-12.0); NEUTROPHILS # (AUTO) 2.2 K/uL (1.8-8.9); NEUTROPHILS % (AUTO) 70.3 % (43.0-81.0); PLATELET COUNT (AUTO) 71 K/uL (150-450); RED BLOOD CELL COUNT(AUTO) 2.35 MIL/uL (4.5-6.0); WHITE BLOOD COUNT (AUTO) 3.1 K/uL (4.3-11.0)
[2023-03-23 09:50] LABS: CALCIUM, SERUM 8.2 mg/dL (8.5-10.1); CREATININE 3.2 mg/dL (0.6-1.3); MAGNESIUM 1.5 mg/dL (1.8-2.4); PHOSPHORUS 2.3 mg/dL (2.5-4.9); POTASSIUM 3.7 mmol/L (3.5-5.1)
[2023-03-23] MEDS ORDERED: DEXTROSE 50%-WATER 50 ML DISP.SYRIN IV PRN (16:30)
[2023-03-23 16:33] VITALS: BP 156/74; TEMP 98.1; O2SAT 98
[2023-03-23] MEDS: BLOOD SUGAR DIAGNOSTIC 1 EACH STRIP IN SCH ×2 (17:03→21:17)
--- NOTE | 2023-03-23 18:23 | NUR ---
RN NOTE PATIENT BLOOD SUGAR 424. ADDITIONAL 10 UNITS GIVEN PER MD TELEPHONE ORDER. WILL CONTINUE TO MONITOR.
[2023-03-23] MEDS ORDERED: INSULIN REGULAR, HUMAN 100 UNIT/ML 10 ML VIAL SQ ONE (18:30)
--- NOTE | 2023-03-23 18:33 | NUR ---
RN CLOSING NOTE PATIENT AWAKE IN BED, RESTING, DENIES PAIN. A/OX4. NO S/SX OF PAIN NOTED AT THIS TIME. ON ROOM AIR, BREATHING EVEN AND UNLABORED, NOT IN RESPIRATORY DISTRESS. WITH IV ACCESS ON LEFT AC G18, PATENT AND INTACT. NS @100MLS/HR INFUSING WELL. FALL AND SAFETY MEASURES IN PLACE. BED IN LOW AND LOCKED POSITION. CALL LIGHT AND TABLE WITHIN REACH. SIDE RAILS UP X2. SCHEDULED MEDICATIONS GIVEN. ENCOURAGED AMBULATION. ALL NEEDS ATTENDED AND ANTICIPATED. WILL ENDORSE TO SPANISH INSTRUCTOR NURSE.
--- NOTE | 2023-03-23 19:20 | NUR ---
MS RN OPENING NOTE PATIENT IS RESTING IN BED. HE IS AWAKE, ALERT AND ORIENTED, AO X 4. PT IS ON RA, TOLERATED WELL. NO S/S OF DISTRESS OR SOB. PT HAS IV ACCESS AT HIS L AC, #18G. INFUSING NS@100 ML/HR. IV SITE IS PATENT AND INTACT. PT DENIES OF HAVING PAIN AT THIS MOMENT. SAFETY MEASURES ARE IN PLACED: BED IN LOWEST AND LOCKED POSITION; SIDE RAILS UP X 2; CALL LIGHT AND TABLE ARE WITHIN REACH. WILL CONTINUE MONITORING THE PT AND PROVIDE THE CARE PT NEEDS.
[2023-03-23 20:00] VITALS: BP 135/72; TEMP 98.5; O2SAT 99
--- NOTE | 2023-03-23 21:32 | NUR ---
MS RN NOTE BLOOD SUGAR CHECK SCHEDULED AT 2100, THE RESULT IS 120. NO SLIDING SCALE INSULIN GIVEN PER MD ORDER.
[2023-03-23] MEDS ORDERED: INSULIN GLARGINE, 100 UNIT/ML CARTRIDGE SQ SCH (22:00)
[2023-03-24] MEDS: IV NS 0.9% 1,000 ML IV PRN ×2 (00:10→05:41)
[2023-03-24] MEDS: BLOOD SUGAR DIAGNOSTIC 1 EACH STRIP IN SCH ×4 (00:24→12:56)
[2023-03-24] MEDS: INSULIN REGULAR, HUMAN 100 UNIT/ML 3 ML VIAL SQ PRN ×4 (00:27→12:58)
[2023-03-24 06:22] LABS: BASOPHILS % (AUTO) 0.3 % (0.0-2.0); EOSINOPHILS % (AUTO) 1.7 % (0.0-6.0); HEMATOCRIT 21 % (39-51); HEMOGLOBIN 7.2 g/dL (13.5-17.5); LYMPHOCYTES # (AUTO) 0.8 K/uL (0.8-4.8); LYMPHOCYTES % (AUTO) 28.4 % (20.0-44.0); MEAN CORPUSCULAR HGB CONC 34 g/dl (31.0-36.0); MEAN CORPUSCULAR VOLUME 94 fL (80-96); MONOCYTES # (AUTO) 0.2 K/uL (0.1-1.30); NEUTROPHILS # (AUTO) 1.6 K/uL (1.8-8.9); NEUTROPHILS % (AUTO) 60.6 % (43.0-81.0); PLATELET COUNT (AUTO) 71 K/uL (150-450); RED BLOOD CELL COUNT(AUTO) 2.26 MIL/uL (4.5-6.0); WHITE BLOOD COUNT (AUTO) 2.7 K/uL (4.3-11.0)
--- NOTE | 2023-03-24 06:32 | NUR ---
MS RN CLOSING NOTE PATIENT IS RESTING IN BED. HE IS AWAKE, ALERT AND ORIENTED, AO X 4. PT IS ON RA, TOLERATED WELL. NO S/S OF DISTRESS OR SOB. PT HAS IV ACCESS AT HIS L AC, #18G. INFUSING NS@100 ML/HR. IV SITE IS PATENT AND INTACT. PT DENIES OF HAVING PAIN AT THIS MOMENT. SAFETY MEASURES ARE IN PLACED: BED IN LOWEST AND LOCKED POSITION; SIDE RAILS UP X 2; CALL LIGHT AND TABLE ARE WITHIN REACH. WILL ENDORSE NEXT SHIFT NURSE FOR CONTINUING PT CARE.
[2023-03-24 06:33] LABS: CALCIUM, SERUM 8.6 mg/dL (8.5-10.1); CREATININE 2.3 mg/dL (0.6-1.3); MAGNESIUM 1.3 mg/dL (1.8-2.4); PHOSPHORUS 2.4 mg/dL (2.5-4.9); POTASSIUM 3.8 mmol/L (3.5-5.1)
--- NOTE | 2023-03-24 07:20 | NUR ---
RN OPENING NOTE RECEIVED PATIENT IN BED AWAKE, A/O X4, VERBALLY RESPONSIVE AND ABLE TO MAKE NEEDS KNOWN. NO SIGNS OF ACUTE DISTRESS NOTED. ON ROOM AIR, NO SOB NOTED, BREATHING EVEN AND UNLABORED. DENIES ANY PAIN AT THIS TIME. NOTED WITH IV ACCESS ON LEFT ANTECUBITAL AREA #18G, INTACT AND PATENT RUNNING NS @100ML/HR. SAFETY MEASURE IN PLACE, BED IN LOW AND LOCKED POSITION, SIDE RAILS UP X2, CALL LIGHT PLACED WITHIN EASY REACH. WILL CONTINUE TO MONITOR PATIENT.
[2023-03-24] MEDS: PANTOPRAZOLE 40 MG TABLET.DR PO SCH (07:56)
[2023-03-24 08:00] VITALS: BP 160/89; TEMP 98.6; O2SAT 99
[2023-03-24] MEDS: Magnesium 1GM/D5W 100ML PREMIX 100 ML IV SCH ×2 (10:27→11:33)
[2023-03-24 13:30] LABS: LYMPHOCYTES % (MANUAL) 27 % (16-48); MONOCYTES % (MANUAL) 6 % (0-11.0); NEUTROPHILS % (MANUAL) 64 (42-76)
[2023-03-24] MEDS ORDERED: K PHOS NEUTRAL 250 MG TABLET PO ONE (13:30)
[2023-03-24 13:31] LABS: BASOPHILS % (MANUAL) 0 % (0.0-2.0); EOSINOPHILS % (MANUAL) 3 % (0-4)
--- NOTE | 2023-03-24 17:20 | NUR ---
VISUAL STYLIST NOTE PATIENT DISCHARGED HOME IN STABLE CONDITION. PATIENT REMAINS AWAKE, A/O X4, VERBALLY RESPONSIVE AND ABLE TO MAKE NEEDS KNOWN. IV ACCESS REMOVED, NO BLEEDING NOTED, PRESSURE DRESSING APPLIED TO SITE. ARM NAME BAND REMOVED. ALL BELONGINGS ACCOUNTED FOR, FORM SIGNED BY PATIENT. HOME MEDICATIONS SENT WITH PATIENT, AL ACCOUNTED FOR. EXIT CARE FOLDER GIVEN TO PATIENT, HEALTH TEACHINGS AND DISCHARGE INSTRUCTIONS PROVIDED WITH VERBALIZATION OF UNDERSTANDING. PATIENT LEFT UNIT @1710, AMBULATORY, ACCOMPANIED PATIENT TO THE LOBBY. TAP CARD GIVEN TO PATIENT FOR BUS TRANSPORTATION. PATINET GOING BACK TO [facility]. CN AWARE OF DISCHARGE.
== END 2023-03-24 17:10 | disposition home or self-care (01) | DRG 469 ==
LOC: ER 16:20 → MED 21:57
PROVIDERS: ADMIT Nurse Practitioner Acute Care; ATTEND Nurse Practitioner Acute Care
DX: N17.0 Acute kidney failure with tubular necrosis (principal); D61.818 Other pancytopenia; I27.20 Pulmonary hypertension, unspecified; E44.0 Moderate protein-calorie malnutrition; E87.1 Hypo-osmolality and hyponatremia; E88.09 Other disorders of plasma-protein metabolism, not elsewhere classified; E83.39 Other disorders of phosphorus metabolism; E11.22 Type 2 diabetes mellitus with diabetic chronic kidney disease; K74.60 Unspecified cirrhosis of liver; E83.42 Hypomagnesemia; Z59.01 Sheltered homelessness; Z68.1 Body mass index [BMI] 19.9 or less, adult; I10 Essential (primary) hypertension; E86.1 Hypovolemia; E11.65 Type 2 diabetes mellitus with hyperglycemia; Z79.4 Long term (current) use of insulin; Z79.899 Other long term (current) drug therapy; F10.10 Alcohol abuse, uncomplicated; Y90.0 Blood alcohol level of less than 20 mg/100 ml; Z87.39 Personal history of other diseases of the musculoskeletal system and connective tissue; Z79.84 Long term (current) use of oral hypoglycemic drugs; Z79.82 Long term (current) use of aspirin; R74.01 Elevation of levels of liver transaminase levels; N39.0 Urinary tract infection, site not specified; I12.9 Hypertensive chronic kidney disease with stage 1 through stage 4 chronic kidney disease, or unspecified chronic kidney disease; N18.9 Chronic kidney disease, unspecified; I08.1 Rheumatic disorders of both mitral and tricuspid valves
CPT/HCPCS: 36415; 71045-TC; 76770-TC; 80048-TC; 80076-TC; 81001; 82962-TC; 83690-TC; 83735-TC; 84100-TC; 84484-TC; 85025-TC; 87081-TC; 87086-TC; 97112-TC; 97116-TC; 97530-TC; A4223; G0378; G0480; J1815; J3475; J7030; J7042

== ENCOUNTER 2023-04-07 16:54 | Inpatient (IN) | payer OTHER ==
[~2023-04-07] VITALS: Ht 188 cm; Wt 75.7 kg
[~2023-04-07 16:54] MED LIST changes: +APIX5TAB PO; +ASPI-1169 PO; -ATOR10TA PO; +GLIP5TAB13 PO; +HYDR-4077 PO; -LISI20TA30 PO; +METO25TA6 PO; -MULT-447 PO; -NADO20TA3 PO; +NALT50TA PO; +NIFE60TA73 PO; +PROP20TA7 PO
[2023-04-07] MEDS ORDERED: IV NS 0.9% 1,000 ML IV ONE ×2 (17:00→18:00)
[2023-04-07 17:17] LABS: SITE, VBG Right Radial; VBG COHb 0.3 %; VBG MetHb 0.7 %; VBG O2Hb 88.9 %; VBG OXYGEN SATURATION 89.8 %; VBG PO2 61.9 mmHg (30-50); VBG TOTAL HEMOGLOBIN 6.3 G/dL (13.5-18.0); VENT MODE, VBG Room Air
[2023-04-07 17:28] LABS: BASOPHILS % (AUTO) 0.1 % (0.0-2.0); EOSINOPHILS % (AUTO) 0.8 % (0.0-6.0); LYMPHOCYTES # (AUTO) 0.3 K/uL (0.8-4.8); LYMPHOCYTES % (AUTO) 8.6 % (20.0-44.0); MEAN CORPUSCULAR HEMOGLOBIN 33 PG (26.0-33.0); MEAN CORPUSCULAR HGB CONC 33 g/dl (31.0-36.0); MEAN CORPUSCULAR VOLUME 100 fL (80-96); MONOCYTES # (AUTO) 0.4 K/uL (0.1-1.30); MONOCYTES % (AUTO) 11.5 % (2.0-12.0); NEUTROPHILS # (AUTO) 2.7 K/uL (1.8-8.9); RED CELL DISTRIBUTION WIDTH 17.9 % (11.5-15.0); WHITE BLOOD COUNT (AUTO) 3.5 K/uL (4.3-11.0)
[2023-04-07 17:36] LABS: INR 1.18 (0.91-1.10); PROTHROMBIN TIME 12.3 SECS (9.2-11.1)
[2023-04-07 17:38] LABS: CALCIUM, SERUM 9.1 mg/dL (8.5-10.1); CARBON DIOXIDE 24 mmol/L (21-32); CREATININE 3.4 mg/dL (0.6-1.3); POTASSIUM 3.7 mmol/L (3.5-5.1); UREA NITROGEN, BLOOD 39 mg/dL (7-18)
[2023-04-07 17:40] LABS: ALANINE AMINOTRANSFERASE 55 U/L (12-78); ALCOHOL, BLOOD < 3 mg/dL (0-10); ALKALINE PHOSPHATASE 278 U/L (46-116); ASPARTATE AMINOTRANSFERASE 59 U/L (15-37); BILIRUBIN,DIRECT 0.8 mg/dL (0.0-0.2); BILIRUBIN,TOTAL 1.5 mg/dL (0.2-1.0); TOTAL PROTEIN, SERUM 7.2 g/dL (6.4-8.2)
[2023-04-07 17:43] LABS: RED BLOOD CELL COUNT(AUTO) 1.73 MIL/uL (4.5-6.0)
[2023-04-07] MEDS ORDERED: INSU100V7 SQ (17:44)
[2023-04-07 17:45] LABS: HEMOGLOBIN 5.7 g/dL (13.5-17.5)
[2023-04-07 17:47] LABS: CHLORIDE 80 mmol/L (98-107); HEMATOCRIT 17 % (39-51); PLATELET COUNT (AUTO) 50 K/uL (150-450); SODIUM SERUM 117 mmol/L (136-145)
[2023-04-07 17:48] LABS: GLUCOSE 1196 mg/dL (74-106)
[2023-04-07] MEDS ORDERED: INSULIN REGULAR, HUMAN 100 UNIT/ML 10 ML VIAL IV ONE (18:00)
[2023-04-07 18:28] LABS: LACTIC ACID 4.8 mmol/L (0.4-2.0)
[2023-04-07 19:10] LABS: ANISOCYTOSIS 1+; LYMPHOCYTES % (MANUAL) 11 % (16-48); MONOCYTES % (MANUAL) 3 % (0-11.0); NEUTROPHILS % (MANUAL) 86 (42-76); PLATELET ESTIMATE DECREASED; ROULEAUX 1+
[2023-04-07] MEDS ORDERED: CEFTRIAXONE 1GM BAG (ER ONLY) 1 GM/50 ML PIGGYBACK IV ONE (19:30)
[2023-04-07] MEDS ORDERED: CEFTRIAXONE 1GM BAG (ER ONLY) 50 ML IV ONE (19:43)
[2023-04-07 20:42] LABS: APPEARANCE,URINE SLIGHTLY CLOUDY (CLEAR); BILIRUBIN,URINE NEGATIVE (NEGATIVE); BLOOD, URINE 1+ Ery/uL (NEGATIVE); COLOR,URINE YELLOW (YELLOW); KETONES,URINE NEGATIVE (NEGATIVE); LEUKOCYTE ESTERASE ,URINE NEGATIVE (NEGATIVE); NITRITE, URINE NEGATIVE (NEGATIVE); PROTEIN,URINE TRACE mg/dl (NEGATIVE); UGLUCOSE 3+ mg/dL (NEGATIVE); UROBILINOGEN,URINE 0.2 EU/dL (0.2)
[2023-04-07] MEDS ORDERED: INSULIN REGULAR, HUMAN 100 UNIT/ML 3 ML VIAL IJ ONE (20:43)
[2023-04-07 20:55] LABS: AMPHETAMINE, URINE NEGATIVE (NEGATIVE); BARBITURATE, URINE NEGATIVE (NEGATIVE); BENZODIAZEPINE, URINE POSITIVE (NEGATIVE); CANNABINOID, URINE NEGATIVE (NEGATIVE); COCCAINE, URINE NEGATIVE (NEGATIVE); OPIATE, URINE NEGATIVE (NEGATIVE); PHENCYCLIDINE SCREEN,URINE NEGATIVE (NEGATIVE)
[2023-04-07 22:05] LABS: ADD URINE CULTURE YES; BACTERIA,URINE 4+ /HPF (None Seen); WBC,URINE 0-2 /HPF (0-3)
[2023-04-07] MEDS ORDERED: MAG HYDROX/AL HYDROX/SIMETH 30 ML UDC PO PRN (22:30)
[2023-04-07] MEDS ORDERED: MAGNESIUM HYDROXIDE 30 ML UDC PO PRN (22:30)
[2023-04-07] MEDS ORDERED: ACETAMINOPHEN 325 MG TABLET PO PRN (22:30)
[2023-04-07] MEDS ORDERED: ZOLPIDEM TARTRATE 5 MG TABLET PO PRN (22:30)
[2023-04-07] MEDS ORDERED: ONDANSETRON HCL/PF 4 MG/2 ML VIAL IVP PRN (22:30)
[2023-04-07] MEDS ORDERED: Z GUARD REMEDY 4 OZ OINT TP PRN (22:30)
[2023-04-07] MEDS ORDERED: INSULIN REGULAR, HUMAN 100 UNIT in IV NS 0.9% 99 ML IV PRN ×2 (22:30)
[2023-04-07] MEDS ORDERED: DEXTROSE 50%-WATER 50 ML DISP.SYRIN IV PRN (22:30)
[2023-04-07] MEDS: IV NS 0.9% 1,000 ML IV PRN (23:02)
[2023-04-07] MEDS: BLOOD SUGAR DIAGNOSTIC 1 EACH STRIP IN SCH ×2 (23:09→23:54)
[2023-04-07 23:15] VITALS: BP 140/67; TEMP 99.3; O2SAT 98
[2023-04-07] MEDS ORDERED: INSULIN REGULAR, HUMAN 100 UNIT/ML 3 ML VIAL ONE (23:24)
[2023-04-07 23:58] VITALS: BP 136/71; TEMP 98.1
[2023-04-08] VITALS (43 sets, daily range): BP systolic 92–134; BP diastolic 52–98; TEMP 97.5–99.3; O2SAT 95–100
[2023-04-08 00:32] LABS: CALCIUM, SERUM 8.9 mg/dL (8.5-10.1); CREATININE 2.8 mg/dL (0.6-1.3)
[2023-04-08 00:34] LABS: POTASSIUM 2.8 mmol/L (3.5-5.1)
[2023-04-08] MEDS: BLOOD SUGAR DIAGNOSTIC 1 EACH STRIP IN SCH ×9 (01:08→20:46)
[2023-04-08] MEDS: POTASSIUM CL. PREMIX PERIPHER. 50 ML IV SCH ×6 (01:37→06:37)
[2023-04-08] MEDS ORDERED: HYDROCODONE/APAP 10/325MG TABLET PO PRN (03:00)
[2023-04-08 04:38] LABS: BASOPHILS % (AUTO) 0.1 % (0.0-2.0); EOSINOPHILS # (AUTO) 0.1 K/uL (0.0-0.7); EOSINOPHILS % (AUTO) 2.2 % (0.0-6.0); LYMPHOCYTES # (AUTO) 0.6 K/uL (0.8-4.8); MEAN CORPUSCULAR HEMOGLOBIN 32 PG (26.0-33.0); MEAN CORPUSCULAR HGB CONC 35 g/dl (31.0-36.0); MEAN CORPUSCULAR VOLUME 92 fL (80-96); MONOCYTES # (AUTO) 0.6 K/uL (0.1-1.30); MONOCYTES % (AUTO) 15.9 % (2.0-12.0); NEUTROPHILS # (AUTO) 2.5 K/uL (1.8-8.9); NEUTROPHILS % (AUTO) 65.8 % (43.0-81.0); PLATELET COUNT (AUTO) 51 K/uL (150-450); RED CELL DISTRIBUTION WIDTH 19.2 % (11.5-15.0); WHITE BLOOD COUNT (AUTO) 3.7 K/uL (4.3-11.0)
[2023-04-08 04:40] LABS: RED BLOOD CELL COUNT(AUTO) 1.84 MIL/uL (4.5-6.0)
[2023-04-08 04:41] LABS: HEMATOCRIT 17 % (39-51); HEMOGLOBIN 5.9 g/dL (13.5-17.5)
[2023-04-08 04:52] LABS: ALBUMIN 2.6 g/dL (3.4-5.0); BILIRUBIN,TOTAL 1.3 mg/dL (0.2-1.0); CALCIUM, SERUM 8.8 mg/dL (8.5-10.1); CREATININE 2.3 mg/dL (0.6-1.3); PHOSPHORUS 1.2 mg/dL (2.5-4.9); TOTAL PROTEIN, SERUM 6.5 g/dL (6.4-8.2)
[2023-04-08 04:56] LABS: MAGNESIUM 1.2 mg/dL (1.8-2.4); POTASSIUM 2.8 mmol/L (3.5-5.1)
[2023-04-08] MEDS ORDERED: DEXTROSE 50%-WATER 50 ML DISP.SYRIN IV PRN (05:30)
[2023-04-08] MEDS: IV NS 0.9% 1,000 ML IV PRN ×3 (07:01→22:32)
[2023-04-08] MEDS: PANTOPRAZOLE 40 MG VIAL IV SCH ×2 (08:38→20:46)
[2023-04-08] MEDS: Magnesium 1GM/D5W 100ML PREMIX 100 ML IV SCH ×3 (08:42→10:40)
[2023-04-08] MEDS: FOLIC ACID 1 MG TABLET PO SCH (08:52)
[2023-04-08] MEDS: METOPROLOL TARTRATE 25 MG TABLET PO SCH ×2 (08:52→20:47)
[2023-04-08] MEDS: PROPRANOLOL HCL 10 MG TABLET PO SCH ×3 (08:52→17:00)
[2023-04-08] MEDS: hydrALAZINE HCL 50 MG TABLET PO SCH ×3 (08:52→17:00)
[2023-04-08] MEDS: INSULIN REGULAR, HUMAN 100 UNIT/ML 3 ML VIAL SQ PRN ×3 (08:56→21:14)
[2023-04-08] MEDS ORDERED: APIXABAN 5 MG TABLET PO SCH (09:00)
[2023-04-08] MEDS ORDERED: Magnesium 1GM/D5W 100ML PREMIX 100 ML IV SCH (09:00)
[2023-04-08] MEDS ORDERED: AMLODIPINE BESYLATE 5 MG TABLET PO SCH (09:00)
[2023-04-08] MEDS ORDERED: NIFEDIPINE XL 60 MG TAB.ER.24 PO SCH (09:00)
[2023-04-08] MEDS: POTASSIUM PHOSPHATE MM 7.5 MMOL in IV NS 0.9% 100 ML IV SCH ×2 (11:34→14:15)
[2023-04-08 11:57] LABS: ANISOCYTOSIS 1+; BASOPHILS % (MANUAL) 0 % (0.0-2.0); EOSINOPHILS % (MANUAL) 4 % (0-4); LYMPHOCYTES % (MANUAL) 14 % (16-48); MONOCYTES % (MANUAL) 13 % (0-11.0); NEUTROPHILS % (MANUAL) 69 (42-76); PLATELET ESTIMATE DECREASED
[2023-04-08] MEDS: CEFTRIAXONE 1 G in IV D5W 50 ML IV SCH (20:45)
[2023-04-09] VITALS (14 sets, daily range): BP systolic 97–139; BP diastolic 56–80; TEMP 97.8–98.5; O2SAT 97–100
[2023-04-09] MEDS: BLOOD SUGAR DIAGNOSTIC 1 EACH STRIP IN SCH ×2 (01:15→05:49)
[2023-04-09] MEDS: INSULIN REGULAR, HUMAN 100 UNIT/ML 3 ML VIAL SQ PRN ×4 (01:33→17:00)
[2023-04-09 04:27] LABS: BASOPHILS % (AUTO) 0.2 % (0.0-2.0); EOSINOPHILS # (AUTO) 0.1 K/uL (0.0-0.7); EOSINOPHILS % (AUTO) 1.7 % (0.0-6.0); HEMATOCRIT 23 % (39-51); LYMPHOCYTES # (AUTO) 0.7 K/uL (0.8-4.8); MEAN CORPUSCULAR HEMOGLOBIN 32 PG (26.0-33.0); MEAN CORPUSCULAR HGB CONC 35 g/dl (31.0-36.0); MEAN CORPUSCULAR VOLUME 92 fL (80-96); MONOCYTES # (AUTO) 0.5 K/uL (0.1-1.30); NEUTROPHILS # (AUTO) 1.8 K/uL (1.8-8.9); NEUTROPHILS % (AUTO) 60.1 % (43.0-81.0); PLATELET COUNT (AUTO) 59 K/uL (150-450); RED BLOOD CELL COUNT(AUTO) 2.47 MIL/uL (4.5-6.0); RED CELL DISTRIBUTION WIDTH 19.3 % (11.5-15.0)
[2023-04-09 04:51] LABS: ALBUMIN 2.3 g/dL (3.4-5.0); BILIRUBIN,DIRECT 0.7 mg/dL (0.0-0.2); BILIRUBIN,TOTAL 1.3 mg/dL (0.2-1.0); CALCIUM, SERUM 8.4 mg/dL (8.5-10.1); CREATININE 2.1 mg/dL (0.6-1.3); MAGNESIUM 1.6 mg/dL (1.8-2.4); POTASSIUM 3.1 mmol/L (3.5-5.1)
[2023-04-09] MEDS: IV NS 0.9% 1,000 ML IV PRN ×2 (06:12→22:27)
[2023-04-09] MEDS: hydrALAZINE HCL 50 MG TABLET PO SCH ×3 (07:30→17:00)
[2023-04-09] MEDS: FOLIC ACID 1 MG TABLET PO SCH (07:31)
[2023-04-09] MEDS: PROPRANOLOL HCL 10 MG TABLET PO SCH ×3 (07:31→17:22)
[2023-04-09] MEDS: METOPROLOL TARTRATE 25 MG TABLET PO SCH ×2 (07:32→22:13)
[2023-04-09] MEDS: Magnesium 1GM/D5W 100ML PREMIX 100 ML IV SCH ×2 (07:50→08:53)
[2023-04-09] MEDS: POTASSIUM PHOSPHATE MM 7.5 MMOL in IV NS 0.9% 100 ML IV SCH ×2 (08:56→12:00)
[2023-04-09 09:17] LABS: ANISOCYTOSIS 1+; BASOPHILS % (MANUAL) 0 % (0.0-2.0); EOSINOPHILS % (MANUAL) 5 % (0-4); LYMPHOCYTES % (MANUAL) 19 % (16-48); MONOCYTES % (MANUAL) 15 % (0-11.0); NEUTROPHILS % (MANUAL) 61 (42-76); PLATELET ESTIMATE DECREASED
[2023-04-09] MEDS ORDERED: POTASSIUM CHLORIDE 20 MEQ TAB.PRT.SR PO ONE (09:30)
[2023-04-09] MEDS: PANTOPRAZOLE 40 MG VIAL IV SCH ×2 (09:39→22:12)
[2023-04-09] MEDS ORDERED: BLOOD SUGAR DIAGNOSTIC 1 EACH STRIP IN SCH (12:00)
[2023-04-09] MEDS ORDERED: *INSULIN REGULAR(HUMULIN R)HUM 100 UNIT/ML VIAL SQ PRN (16:00)
[2023-04-09] MEDS ORDERED: DEXTROSE 50%-WATER 50 ML DISP.SYRIN IV PRN (16:00)
[2023-04-09] MEDS: BLOOD SUGAR DIAGNOSTIC 1 EACH STRIP VI SCH ×2 (17:01→22:57)
[2023-04-09] MEDS: CEFTRIAXONE 1 G in IV D5W 50 ML IV SCH (20:17)
[2023-04-10] MEDS: INSULIN REGULAR, HUMAN 100 UNIT/ML 3 ML VIAL SQ PRN ×3 (06:40→17:12)
[2023-04-10] MEDS: BLOOD SUGAR DIAGNOSTIC 1 EACH STRIP VI SCH (06:47)
[2023-04-10 07:00] VITALS: BP 128/77; TEMP 98; O2SAT 97
[2023-04-10 09:01] LABS: BASOPHILS % (AUTO) 0.5 % (0.0-2.0); EOSINOPHILS # (AUTO) 0.1 K/uL (0.0-0.7); EOSINOPHILS % (AUTO) 2.3 % (0.0-6.0); HEMATOCRIT 25 % (39-51); HEMOGLOBIN 8.4 g/dL (13.5-17.5); LYMPHOCYTES # (AUTO) 0.8 K/uL (0.8-4.8); LYMPHOCYTES % (AUTO) 29.8 % (20.0-44.0); MEAN CORPUSCULAR HEMOGLOBIN 32 PG (26.0-33.0); MEAN CORPUSCULAR HGB CONC 34 g/dl (31.0-36.0); MEAN CORPUSCULAR VOLUME 94 fL (80-96); MONOCYTES # (AUTO) 0.4 K/uL (0.1-1.30); MONOCYTES % (AUTO) 15.8 % (2.0-12.0); NEUTROPHILS # (AUTO) 1.4 K/uL (1.8-8.9); NEUTROPHILS % (AUTO) 51.6 % (43.0-81.0); PLATELET COUNT (AUTO) 72 K/uL (150-450); RED BLOOD CELL COUNT(AUTO) 2.66 MIL/uL (4.5-6.0); RED CELL DISTRIBUTION WIDTH 19.9 % (11.5-15.0); WHITE BLOOD COUNT (AUTO) 2.7 K/uL (4.3-11.0)
[2023-04-10] MEDS: PROPRANOLOL HCL 10 MG TABLET PO SCH ×3 (09:26→16:38)
[2023-04-10] MEDS: FOLIC ACID 1 MG TABLET PO SCH (09:27)
[2023-04-10] MEDS: hydrALAZINE HCL 50 MG TABLET PO SCH ×3 (09:27→16:37)
[2023-04-10] MEDS: METOPROLOL TARTRATE 25 MG TABLET PO SCH ×2 (09:27→20:50)
[2023-04-10] MEDS: PANTOPRAZOLE 40 MG TABLET.DR PO SCH ×2 (09:30→20:49)
[2023-04-10 09:51] LABS: CALCIUM, SERUM 8.5 mg/dL (8.5-10.1); CREATININE 1.9 mg/dL (0.6-1.3); MAGNESIUM 1.7 mg/dL (1.8-2.4); PHOSPHORUS 2.4 mg/dL (2.5-4.9); POTASSIUM 3.2 mmol/L (3.5-5.1)
[2023-04-10] MEDS ORDERED: DEXTROSE 50%-WATER 50 ML DISP.SYRIN IV PRN (10:00)
[2023-04-10] MEDS ORDERED: *INSULIN REGULAR(HUMULIN R)HUM 100 UNIT/ML VIAL SQ PRN (10:00)
[2023-04-10] MEDS: BLOOD SUGAR DIAGNOSTIC 1 EACH STRIP IN SCH ×3 (11:48→22:29)
[2023-04-10 12:05] LABS: EOSINOPHILS % (MANUAL) 2 % (0-4); LYMPHOCYTES % (MANUAL) 27 % (16-48); MONOCYTES % (MANUAL) 8 % (0-11.0); NEUTROPHILS % (MANUAL) 63 (42-76); PLATELET ESTIMATE DECREASED
[2023-04-10 12:06] LABS: ANISOCYTOSIS 1+
[2023-04-10 16:00] VITALS: BP 129/72; TEMP 98; O2SAT 97
[2023-04-10] MEDS ORDERED: NEUTRA PHOS 1 POWD.PACKET PO ONE (16:00)
[2023-04-10] MEDS ORDERED: POTASSIUM CHLORIDE 20 MEQ TAB.PRT.SR PO ONE (16:30)
[2023-04-10] MEDS: IV NS 0.9% 1,000 ML IV PRN (16:44)
[2023-04-10] MEDS: INSULIN ASPART/LISPRO 100 UNIT/ML CARTRIDGE SQ SCH ×2 (17:10→17:14)
[2023-04-10] MEDS ORDERED: Magnesium 1GM/D5W 100ML PREMIX 100 ML IV SCH (18:00)
[2023-04-10] MEDS: CEFTRIAXONE 1 G in IV D5W 50 ML IV SCH (19:54)
[2023-04-10 20:00] VITALS: BP 137/60; TEMP 98.2; O2SAT 100
[2023-04-10 21:18] VITALS: BP 107/60; TEMP 98.2; O2SAT 100
[2023-04-10] MEDS ORDERED: INSULIN GLARGINE, 100 UNIT/ML CARTRIDGE SQ SCH (22:00)
[2023-04-11] MEDS: IV NS 0.9% 1,000 ML IV PRN (04:01)
[2023-04-11] MEDS: INSULIN REGULAR, HUMAN 100 UNIT/ML 3 ML VIAL SQ PRN ×2 (06:54→11:57)
[2023-04-11] MEDS: BLOOD SUGAR DIAGNOSTIC 1 EACH STRIP IN SCH ×2 (06:54→11:25)
[2023-04-11 07:00] VITALS: BP 134/69; TEMP 98.4; O2SAT 97
[2023-04-11 07:00] LABS: MAGNESIUM 1.4 mg/dL (1.8-2.4); PHOSPHORUS 2.6 mg/dL (2.5-4.9)
[2023-04-11 07:47] LABS: CALCIUM, SERUM 8.7 mg/dL (8.5-10.1); POTASSIUM 4.4 mmol/L (3.5-5.1)
[2023-04-11 07:50] LABS: BASOPHILS % (AUTO) 0.4 % (0.0-2.0); EOSINOPHILS % (AUTO) 1.5 % (0.0-6.0); HEMATOCRIT 23 % (39-51); HEMOGLOBIN 7.5 g/dL (13.5-17.5); LYMPHOCYTES # (AUTO) 0.8 K/uL (0.8-4.8); LYMPHOCYTES % (AUTO) 31.6 % (20.0-44.0); MEAN CORPUSCULAR HEMOGLOBIN 32 PG (26.0-33.0); MEAN CORPUSCULAR HGB CONC 33 g/dl (31.0-36.0); MEAN CORPUSCULAR VOLUME 97 fL (80-96); MONOCYTES # (AUTO) 0.4 K/uL (0.1-1.30); MONOCYTES % (AUTO) 14.8 % (2.0-12.0); NEUTROPHILS # (AUTO) 1.4 K/uL (1.8-8.9); NEUTROPHILS % (AUTO) 51.7 % (43.0-81.0); RED BLOOD CELL COUNT(AUTO) 2.33 MIL/uL (4.5-6.0); RED CELL DISTRIBUTION WIDTH 20.2 % (11.5-15.0); WHITE BLOOD COUNT (AUTO) 2.6 K/uL (4.3-11.0)
[2023-04-11 08:29] LABS: PLATELET COUNT (AUTO) 36 K/uL (150-450)
[2023-04-11 09:36] VITALS: BP 134/69
[2023-04-11] MEDS: PANTOPRAZOLE 40 MG TABLET.DR PO SCH (09:36)
[2023-04-11] MEDS: hydrALAZINE HCL 50 MG TABLET PO SCH ×2 (09:36→13:00)
[2023-04-11] MEDS: METOPROLOL TARTRATE 25 MG TABLET PO SCH (09:36)
[2023-04-11] MEDS: PROPRANOLOL HCL 10 MG TABLET PO SCH ×2 (09:36→13:00)
[2023-04-11] MEDS: FOLIC ACID 1 MG TABLET PO SCH (09:37)
[2023-04-11] MEDS: Magnesium 1GM/D5W 100ML PREMIX 100 ML IV SCH ×3 (09:37→11:55)
[2023-04-11] MEDS: INSULIN ASPART/LISPRO 100 UNIT/ML CARTRIDGE SQ SCH (09:42)
[2023-04-11 12:47] LABS: ANISOCYTOSIS 1+; BASOPHILS % (MANUAL) 0 % (0.0-2.0); EOSINOPHILS % (MANUAL) 1 % (0-4); LYMPHOCYTES % (MANUAL) 27 % (16-48); MONOCYTES % (MANUAL) 11 % (0-11.0); NEUTROPHILS % (MANUAL) 61 (42-76); PLATELET ESTIMATE DECREASED
== END 2023-04-11 14:00 | disposition home or self-care (01) | DRG 663 ==
LOC: ER 17:17 → TELE 20:18 → ICU 22:52 → MED 04-09 09:29
PROVIDERS: ADMIT Nurse Practitioner Acute Care; ATTEND Internal Medicine
PROC: 30233N1 Transfusion of Nonautologous Red Blood Cells into Peripheral Vein, Percutaneous Approach (ICD-10-PCS; principal; 2023-04-08)
PROC: 05H633Z Insertion of Infusion Device into Left Subclavian Vein, Percutaneous Approach (ICD-10-PCS; 2023-04-08)
PROC: B547ZZA Ultrasonography of Left Subclavian Vein, Guidance (ICD-10-PCS; 2023-04-08)
DX: D50.0 Iron deficiency anemia secondary to blood loss (chronic) (principal); N17.0 Acute kidney failure with tubular necrosis; E11.00 Type 2 diabetes mellitus with hyperosmolarity without nonketotic hyperglycemic-hyperosmolar coma (NKHHC); G92.8 Other toxic encephalopathy; E44.0 Moderate protein-calorie malnutrition; D61.818 Other pancytopenia; I85.00 Esophageal varices without bleeding; K29.50 Unspecified chronic gastritis without bleeding; E87.20 Acidosis, unspecified; D63.8 Anemia in other chronic diseases classified elsewhere; K74.60 Unspecified cirrhosis of liver; N18.9 Chronic kidney disease, unspecified; I12.9 Hypertensive chronic kidney disease with stage 1 through stage 4 chronic kidney disease, or unspecified chronic kidney disease; E11.65 Type 2 diabetes mellitus with hyperglycemia; E78.5 Hyperlipidemia, unspecified; E86.1 Hypovolemia; F10.10 Alcohol abuse, uncomplicated; Z59.00 Homelessness unspecified; Z79.4 Long term (current) use of insulin; Z79.899 Other long term (current) drug therapy; Z79.84 Long term (current) use of oral hypoglycemic drugs; Z91.199 Patient's noncompliance with other medical treatment and regimen due to unspecified reason; R74.01 Elevation of levels of liver transaminase levels; R53.1 Weakness; E11.22 Type 2 diabetes mellitus with diabetic chronic kidney disease; Z79.01 Long term (current) use of anticoagulants
CPT/HCPCS: 36410; 36415; 36600; 70450-TC; 71045-TC; 80048-TC; 80053-TC; 80076-TC; 81001; 82140-TC; 82803-TC; 82947-TC; 82962-TC; 83605-TC; 83735-TC; 84100-TC; 84132-TC; 84484-TC; 85025-TC; 85730-TC; 86850-TC; 87040-TC; 87081-TC; 87086-TC; 97110-TC; 97112-TC; 97116-TC; 97530-TC; 97535-TC; A4223; C9113; G0378; G0480; J0696; J1815; J3475; J3480; J3490; J7030; J7050; J7060; P9016

== ENCOUNTER 2023-06-01 17:03 | Emergency (ER) | payer OTHER ==
[~2023-06-01] VITALS: Ht 172.7 cm; Wt 78.0 kg
[~2023-06-01 17:03] MED LIST changes: -APIX5TAB PO; -ASPI-1169 PO; -GABA-532 PO; +INSU100V7 SQ; -NALT50TA PO
[2023-06-01 18:24] VITALS: BP 138/82; TEMP 98.4; O2SAT 96
== END 2023-06-01 18:25 | disposition home or self-care (01) ==
LOC: ER 17:07
DX: F10.129 Alcohol abuse with intoxication, unspecified (principal); I10 Essential (primary) hypertension; E11.9 Type 2 diabetes mellitus without complications; D64.9 Anemia, unspecified; F17.200 Nicotine dependence, unspecified, uncomplicated; Z79.899 Other long term (current) drug therapy; Z60.2 Problems related to living alone; Y90.9 Presence of alcohol in blood, level not specified
CPT/HCPCS: 82962-TC